=== PATIENT | female | born 1955 | race Caucasian/White ===

== ENCOUNTER 2016-11-13 20:07 | Emergency (ER) | payer OTHER ==
[~2016-11-13] VITALS: Ht 154.9 cm; Wt 65.8 kg
[~2016-11-13 20:07] MED LIST: ACET-6134 PO; AMLO5TAB PO; ESOM40EC PO; INSULIN; PRED1TAB2 PO; [UNRECOGNIZED DRUG - OTHER]
[2016-11-13 20:16] VITALS: BP 135/80
[2016-11-13] MEDS ORDERED: ALBUTEROL SULFATE/IPRATROPIU 3 ML SOL IH ONE (21:00)
[2016-11-13] MEDS ORDERED: NACL 0.9% 1,000 ML IV ONE (21:00)
[2016-11-13] MEDS ORDERED: ASPIRIN 81 MG TAB.CHEW PO ONE (21:00)
[2016-11-13 21:32] LABS: HEMATOCRIT 32.8 % (36-48); HEMOGLOBIN 10.1 g/dL (12.0-16.0); MEAN CORPUSCULAR HEMOGLOBIN 26 pg (27-31); MEAN CORPUSCULAR HGB CONC 31 g/dL (33-37); MEAN CORPUSCULAR VOLUME 82 fL (80-94); PLATELET COUNT (AUTO) 392 K/uL (140-450); RED BLOOD CELL COUNT(AUTO) 3.98 MIL/uL (4.20-5.40); RED CELL DISTRIBUTION WIDTH 15.3 % (11.6-13.7); WHITE BLOOD COUNT (AUTO) 15.3 K/uL (4.8-10.8)
[2016-11-13 21:40] LABS: ANION GAP 7.8 (8-16); CALCIUM 8.5 mg/dL (8.5-10.1); CARBON DIOXIDE 30.7 mmol/L (21-32); CREATININE 0.8 mg/dL (0.6-1.3); POTASSIUM 3.5 mmol/L (3.5-5.1)
[2016-11-13 21:44] LABS: PARTIAL THROMBOPLASTIN TIME 22.5 secs (22-35.6); PROTHROMBIN TIME 9.9 secs (10.8-13.4)
[2016-11-13 21:46] LABS: TOTAL BILIRUBIN 0.2 mg/dL (0.0-1.0); TOTAL PROTEIN, SERUM 6.3 g/dL (6.4-8.2)
[2016-11-13] MEDS ORDERED: CLINDAMYCIN 900 MG in DEXTROSE 5% 100 ML IV ONE (21:50)
[2016-11-13 21:51] LABS: LYMPHOCYTES % (MANUAL) 14 % (20-46); MONOCYTES % (MANUAL) 7 % (5-12); NEUTROPHILS % (MANUAL) 79 (43-65)
[2016-11-13 21:52] LABS: PLATELET ESTIMATE ADEQUATE
[2016-11-13] MEDS ORDERED: CLINDAMYCIN 900 MG/6 ML VIAL IV ONE (22:00)
[2016-11-13 23:06] VITALS: BP 135/80
== END 2016-11-13 23:06 | disposition left against medical advice (07) ==
LOC: MED 20:07
DX: J18.9 Pneumonia, unspecified organism (principal); J44.1 Chronic obstructive pulmonary disease with (acute) exacerbation; M79.672 Pain in left foot; M79.671 Pain in right foot; M79.89 Other specified soft tissue disorders; E11.9 Type 2 diabetes mellitus without complications; I10 Essential (primary) hypertension; Z79.4 Long term (current) use of insulin; Z79.899 Other long term (current) drug therapy; Z88.0 Allergy status to penicillin; Z88.1 Allergy status to other antibiotic agents; Z88.5 Allergy status to narcotic agent
CPT/HCPCS: 36415; 71010; 80053; 84484; 85025; 85610; 85730; 93005; 94640; 96361; 96365; 99285; J3490; J7030; J7620; Q0092

== ENCOUNTER 2017-04-27 17:22 | Emergency (ER) | payer OTHER ==
[~2017-04-27] VITALS: Ht 154.9 cm; Wt 67.1 kg
[2017-04-27 17:26] VITALS: BP 141/113
[2017-04-27] MEDS ORDERED: LOSA25TA1 PO (17:34)
[2017-04-27] MEDS ORDERED: LEVEMIR SUBQ (17:34)
[2017-04-27] MEDS ORDERED: GABA100C PO (17:34)
[2017-04-27] MEDS ORDERED: ATOR20TA PO (17:34)
--- NOTE | 2017-04-27 17:45 | NUR ---
PATIENT TO ED BED 4 AT THIS TIME.
--- NOTE | 2017-04-27 18:10 | NUR ---
DR. WARE AT BEDSIDE
[2017-04-27] MEDS ORDERED: IPRATROPIUM 0.02% 0.5 MG/2.5 ML NEBU INH ONE (18:15)
[2017-04-27] MEDS ORDERED: ALBUTEROL 0.083% 2.5 MG/3 ML NEBU INH ONE (18:15)
--- NOTE | 2017-04-27 18:21 | NUR ---
XRAY AT BEDSIDE
--- NOTE | 2017-04-27 18:22 | NUR ---
PATIENT PRESENTS TO ED WITH chest pain starting a few hours ago with SOB Hx: pulmonary fibrosis, DM, lupus, chronic migraine, HTN, stent placement . DENIES N/V/D; SKIN IS PINK/WARM/DRY; AAOX4 WITH EVEN AND STEADY GAIT; LUNGS CLEAR BL; HR EVEN AND REGULAR; PT DENIES ANY FEVER; PATIENT STATES PAIN OF 7/10 AT THIS TIME; PATIENT POSITIONED FOR COMFORT; HOB ELEVATED; BEDRAILS UP X2; BED DOWN, LAB AT BEDSIDE AT THIS TIME.
--- NOTE | 2017-04-27 18:28 | NUR ---
RT AT BEDSIDE FOR HHN
--- NOTE | 2017-04-27 19:00 | NUR ---
RECEIVED REPORT FROM TOREY LAN, TRANSFER OF CARE AT THIS TIME.
[2017-04-27 20:03] VITALS: BP 144/77
== END 2017-04-27 20:03 | disposition home or self-care (01) ==
LOC: MED 17:22
DX: S61.432A Puncture wound without foreign body of left hand, initial encounter (principal); J44.1 Chronic obstructive pulmonary disease with (acute) exacerbation; E11.9 Type 2 diabetes mellitus without complications; I10 Essential (primary) hypertension; Z95.1 Presence of aortocoronary bypass graft; Z88.0 Allergy status to penicillin; Z88.1 Allergy status to other antibiotic agents; Z88.5 Allergy status to narcotic agent; X58.XXXA Exposure to other specified factors, initial encounter; Y93.89 Activity, other specified; Y92.89 Other specified places as the place of occurrence of the external cause; Y99.8 Other external cause status
CPT/HCPCS: 36415; 71045; 82948; 84484; 93005; 94640; 94760; 99285; J7613; J7644; Q0092

== ENCOUNTER 2017-09-01 21:41 | Emergency (ER) | payer OTHER ==
[~2017-09-01] VITALS: Ht 157.5 cm; Wt 64.9 kg
[~2017-09-01 21:41] MED LIST changes: +ATOR20TA PO; +GABA100C PO; -INSULIN; +LEVEMIR SUBQ; +LOSA25TA1 PO; -[UNRECOGNIZED DRUG - OTHER]
[2017-09-01 21:43] VITALS: BP 162/90
[2017-09-01 21:50] VITALS: BP 162/90
--- NOTE | 2017-09-01 21:52 | NUR ---
PT TO ER BED 3
--- NOTE | 2017-09-01 21:55 | NUR ---
PATIENT PRESENTS TO ED WITH REDNESS TO LEFT EYE AND HEADACHE X3 DAYS. PT DENIES N/V/D; SKIN IS PINK/WARM/DRY; AAOX4 WITH EVEN AND STEADY GAIT; LUNGS CLEAR BL; HR EVEN AND REGULAR; PT DENIES ANY FEVER, CP, SOB AT THIS TIME; PATIENT STATES PAIN OF 9/10 AT THIS TIME; VSS; PATIENT POSITIONED FOR COMFORT; HOB ELEVATED; BEDRAILS UP X1; BED DOWN. ER MD MADE AWARE OF PT STATUS.
--- NOTE | 2017-09-01 22:00 | NUR ---
XRAY AT BEDSIDE
[2017-09-01] MEDS ORDERED: NACL 0.9% 500 ML IV ONE (22:05)
[2017-09-01] MEDS ORDERED: KETOROLAC 30 MG/ML VIAL IVP ONE (22:05)
--- NOTE | 2017-09-01 22:40 | NUR ---
Patient appears to be resting comfortably in bed. Vital Signs within normal limits. Respirations even and unlabored.
--- NOTE | 2017-09-02 00:10 | NUR ---
IV removed, catheter intact and site benign. Applied folded 4x4 gauze and tape to stop bleeding. PATIENT REFUSED TO HAVE DRIED BLOOD CLEANED FROM SURROUNDING AREA.
--- NOTE | 2017-09-02 00:14 | NUR ---
Patient discharged with v/s stable. Written and verbal after care instructions given and explained. Patient RIPPED DISCHARGE PAPERWORK IN HALF. PATIENT THREW BED MATTRESS AND LINENS ON THE FLOOR UPON DISCHARGE. All questions addressed prior to discharge. Advised to follow up with PMD.
== END 2017-09-02 00:14 | disposition home or self-care (01) ==
LOC: MED 21:41
DX: H11.32 Conjunctival hemorrhage, left eye (principal); R51 Headache; R03.0 Elevated blood-pressure reading, without diagnosis of hypertension; J84.10 Pulmonary fibrosis, unspecified; E11.9 Type 2 diabetes mellitus without complications; I10 Essential (primary) hypertension; Z79.899 Other long term (current) drug therapy; Z88.0 Allergy status to penicillin; Z88.1 Allergy status to other antibiotic agents; Z88.5 Allergy status to narcotic agent
CPT/HCPCS: 71045; 93005; 96361; 96374; 99284; J1885; J7030

== ENCOUNTER 2018-12-21 21:50 | Emergency (ER) | payer OTHER ==
[~2018-12-21] VITALS: Ht 154.9 cm; Wt 60.8 kg
[2018-12-21 21:55] VITALS: BP 121/90
[2018-12-21] MEDS ORDERED: SODIUM CHLORIDE FLUSH 10 ML SYR IVF STA (21:59)
[2018-12-21] MEDS ORDERED: NITROGLYCERIN 0.4 MG TAB SL STA (21:59)
[2018-12-21 22:38] LABS: BASOPHILS # (AUTO) 0.1 K/uL (0.00-0.22); BASOPHILS % (AUTO) 0.5 % (0.0-2.0); EOSINOPHILS # (AUTO) 0.1 K/uL (0-0.4); EOSINOPHILS % (AUTO) 0.5 % (0.0-4.0); HEMATOCRIT 34.4 % (36-48); HEMOGLOBIN 10.4 g/dL (12.0-16.0); LYMPHOCYTES # (AUTO) 1.8 K/uL (2.5-16.5); LYMPHOCYTES % (AUTO) 11.7 % (20.5-51.1); MEAN CORPUSCULAR HEMOGLOBIN 25 pg (27-31); MEAN CORPUSCULAR HGB CONC 30 g/dL (33-37); MEAN CORPUSCULAR VOLUME 81.5 fL (80-94); MONOCYTES % (AUTO) 6.2 % (1.7-9.3); NEUTROPHILS # (AUTO) 12.7 K/uL (1.8-7.7); PLATELET COUNT (AUTO) 321 K/uL (140-450); RED BLOOD CELL COUNT(AUTO) 4.22 MIL/uL (4.20-5.40); RED CELL DISTRIBUTION WIDTH 19.9 % (11.6-13.7); WHITE BLOOD COUNT (AUTO) 15.7 K/uL (4.8-10.8)
[2018-12-21 22:44] LABS: ANION GAP 11.6 (8-16); CREATININE 0.8 mg/dL (0.6-1.3); POTASSIUM 3.6 mmol/L (3.5-5.1)
[2018-12-21 22:49] LABS: ALBUMIN 3.1 g/dL (3.4-5.0); TOTAL BILIRUBIN 0.3 mg/dL (0.0-1.0)
[2018-12-21 22:52] LABS: NEUTROPHILS % (AUTO) 81.1 % (42.2-75.2)
--- NOTE | 2018-12-21 23:10 | NUR ---
PT WAS WHEEL CHAIRED TO BED #3
--- NOTE | 2018-12-21 23:41 | NUR ---
PT C/O CHEST PAIN X1 WEEK W/ DIZZINESS AND SOB. RR EVEN AND UNLABORED, ABLE TO TALK IN FULL SENTENCES. HEADACHE X3 DAYS. FLANK PAIN X3 DAYS, DENIES URINARY SX. LAYING IN BED CALM, WITH FRIEND AT BEDSIDE. MEDHX: PULMONARY FIBROSIS, DM, EMPHYSEMA, LUPUS
[2018-12-22] MEDS ORDERED: NACL 0.9% 1,000 ML IV ONE (00:10)
[2018-12-22] MEDS ORDERED: ALBUTEROL SULFATE/IPRATROPIU 3 ML SOL IH ONE (00:10)
[2018-12-22] MEDS ORDERED: fentaNYL 0.05 MG/ML VIAL IVP ONE (00:10)
[2018-12-22 00:28] VITALS: BP 121/90
--- NOTE | 2018-12-22 00:28 | NUR ---
PATIENT ELOPED FROM FACILITY. DISCHARGE INSTRUCTIONS NOT GIVEN TO PATIENT. DR. CRABTREE NOTIFIED.
== END 2018-12-22 00:28 | disposition left against medical advice (07) ==
LOC: MED 21:50
DX: R07.89 Other chest pain (principal); R06.02 Shortness of breath; M54.9 Dorsalgia, unspecified; I10 Essential (primary) hypertension; E11.9 Type 2 diabetes mellitus without complications; J84.10 Pulmonary fibrosis, unspecified; M32.9 Systemic lupus erythematosus, unspecified; Z88.0 Allergy status to penicillin; Z88.1 Allergy status to other antibiotic agents; Z88.5 Allergy status to narcotic agent; Z79.899 Other long term (current) drug therapy; Z79.1 Long term (current) use of non-steroidal anti-inflammatories (NSAID)
CPT/HCPCS: 36415; 71045; 80053; 84484; 85025; 93005; 99284; Q0092; J7620

== ENCOUNTER 2019-02-13 18:11 | Emergency (ER) | payer OTHER ==
[~2019-02-13] VITALS: Ht 149.9 cm; Wt 61.9 kg
[2019-02-13 18:17] VITALS: BP 158/98
--- NOTE | 2019-02-13 18:20 | NUR ---
PT AMBULATED TO BED 3.
--- NOTE | 2019-02-13 18:30 | NUR ---
63 Y/O F PRESENTS TO ER FOR RIGHT LEG LACERATION SINCE LAST NIGHT. PER PT SHE DOES NOT RECALL HOW SHE GOT THE CUT, SHE ONLY FELT HER PANTS WET, AND SHE NOTICED THE BLOOD. LACERATION IS 6CM, OPEN WOUND, NO BLEEDING NOTED. PAIN LEVEL 8/10, BURNING/NUMBNESS. PT TOOK TYLENOL AT 2PM WITH MILD RELIEF. LEFT FOOT ALSO HAS SWELLING +2 PTTING EDEMA. PT ALSO REPORTS SHORTNESS OF BREATHE. RESPIRATIONS ARE EVEN AND UNLABORED. O2 SATURATION 99% ON RA. HOB ELEVATED, BED IN LOWEST POSITION, BED RAIL UP X1. WAITING FOR ERMD TO EVALUATE PT. ALLERGIES: PENICILLIN, AZITHROMYCIN, CEPHALEXIN MED HX: DM, LUPUS, FIBROSIS, EMPHYSEMA, MIGRAINS, HTN, HEART MURMUR.
[2019-02-13] MEDS ORDERED: BACITRACIN OINT 500 UNITS/GM PKT TP ONE (19:00)
[2019-02-13] MEDS ORDERED: LIDOCAINE MPF 1% 10 MG/ML VIAL INJ ONE ×2 (19:10→19:45)
--- NOTE | 2019-02-13 19:36 | NUR ---
PATIENT IS QUIETLY SITTING IN BED. PA IS AT BEDSIDE. WILL CONTINUE TO MONITOR.
--- NOTE | 2019-02-13 19:40 | NUR ---
PT WOUND IRRIGATED WITH NORMAL SALINE AND BETADINE
--- NOTE | 2019-02-13 20:01 | NUR ---
PA AT BEDSIDE FOR PROCEDURE.
--- NOTE | 2019-02-13 20:28 | NUR ---
PT WOUND COVERED WITH NON ADHERENT DRESSING AND WRAPPED WITH GAUZE ROLL AFTER BACITRACIN APPLIED. +CSM
[2019-02-13 20:49] VITALS: BP 138/79
== END 2019-02-13 20:49 | disposition home or self-care (01) ==
LOC: MED 18:11
DX: S81.811A Laceration without foreign body, right lower leg, initial encounter (principal); E11.9 Type 2 diabetes mellitus without complications; I10 Essential (primary) hypertension; Z79.899 Other long term (current) drug therapy; Z88.0 Allergy status to penicillin; Z88.1 Allergy status to other antibiotic agents; Z88.5 Allergy status to narcotic agent; X58.XXXA Exposure to other specified factors, initial encounter; Y92.89 Other specified places as the place of occurrence of the external cause; Y93.01 Activity, walking, marching and hiking; Y99.8 Other external cause status
CPT/HCPCS: 12002; 82948; 90471; 90715; 99283; J2001

== ENCOUNTER 2019-02-15 18:21 | Emergency (ER) | payer OTHER ==
[~2019-02-15] VITALS: Ht 154.9 cm; Wt 60.8 kg
[2019-02-15 18:33] VITALS: BP 163/93
[2019-02-15] MEDS ORDERED: SULFAMETH/TRIMETH DS 800/160MG 1 TAB PO ONE (18:45)
[2019-02-15 19:17] VITALS: BP 172/88
== END 2019-02-15 19:17 | disposition home or self-care (01) ==
LOC: MED 18:21
DX: S81.811D Laceration without foreign body, right lower leg, subsequent encounter (principal); L08.9 Local infection of the skin and subcutaneous tissue, unspecified; E11.9 Type 2 diabetes mellitus without complications; I10 Essential (primary) hypertension; Z88.0 Allergy status to penicillin; Z88.1 Allergy status to other antibiotic agents; Z88.5 Allergy status to narcotic agent; Z79.899 Other long term (current) drug therapy; X58.XXXD Exposure to other specified factors, subsequent encounter
CPT/HCPCS: 99283

== ENCOUNTER 2019-03-04 16:49 | Emergency (ER) | payer OTHER ==
[~2019-03-04] VITALS: Ht 154.9 cm; Wt 60.8 kg
[2019-03-04 16:57] VITALS: BP 180/85
--- NOTE | 2019-03-04 17:04 | NUR ---
Patient ambulated to bed 5 with family. RN evaluating patient at bedside.
--- NOTE | 2019-03-04 17:12 | NUR ---
MARIE Barone evaluating patient at bedside.
--- NOTE | 2019-03-04 17:15 | NUR ---
PT C/O SEVERE PAIN WHILE MARIE MARIE REMOVING SUTURES ON RLE. ORDER PENDING FOR EMLA TOPICAL, WILL CARRY OUT.
[2019-03-04] MEDS ORDERED: LIDOCAINE/PRILOCAINE 2.5% 5 GM TUBE TP ONE (17:20)
--- NOTE | 2019-03-04 17:46 | NUR ---
SUTURES REMOVED AFTER APPROX 15MINS AFTER EMLA TOPICAL, PT C/O PAIN BUT ABLE TO TOLERATE. DR WARE AT BEDSIDE.
--- NOTE | 2019-03-04 18:05 | NUR ---
Patient discharged with v/s stable. Written and verbal after care instructions given and explained. Patient alert, oriented and verbalized understanding of instructions. Ambulatory with steady gait. All questions addressed prior to discharge. ID band removed. Patient advised to follow up with PMD. Rx of CLINDAMYCIN, MOTRIN given. Patient educated on indication of medication including possible reaction and side effects. Opportunity to ask questions provided and answered.
[2019-03-04 18:06] VITALS: BP 180/85
== END 2019-03-04 18:05 | disposition home or self-care (01) ==
LOC: MED 16:49
DX: L03.115 Cellulitis of right lower limb (principal); S81.811D Laceration without foreign body, right lower leg, subsequent encounter; E11.9 Type 2 diabetes mellitus without complications; I10 Essential (primary) hypertension; Z79.899 Other long term (current) drug therapy; Z48.02 Encounter for removal of sutures; Z79.4 Long term (current) use of insulin; Z88.0 Allergy status to penicillin; Z88.1 Allergy status to other antibiotic agents; Z88.5 Allergy status to narcotic agent; X58.XXXD Exposure to other specified factors, subsequent encounter

== ENCOUNTER 2019-04-12 14:49 | Emergency (ER) | payer OTHER ==
[~2019-04-12] VITALS: Ht 154.9 cm; Wt 60.8 kg
[2019-04-12 15:05] VITALS: BP 171/81
--- NOTE | 2019-04-12 15:13 | NUR ---
PT AMB TO BED 1 WITH STEADY GAIT
--- NOTE | 2019-04-12 15:23 | NUR ---
PT C/O RT LOWER LEG PAIN W/ NON HEALING WOUND, SOB, CP, BLURRY VISION, DIZZINESS, LOSS OF APPETITE, PRODUCTIVE COUGH FOR ONE WEEK. SEEN HERE LAST FEBRUARY FOR INJURY ON LT LEG. PATIENT STATES BURNING/THROBBING PAIN OF 8/10 AT THIS TIME; VSS; PATIENT POSITIONED FOR COMFORT; HOB ELEVATED; BEDRAILS UP X1; BED DOWN. ER MD MADE AWARE OF PT STATUS. PT IS ON MONITROR FOR VITAL SIGNS MONITORING.
[2019-04-12] MEDS: ALBUTEROL 0.083% 2.5 MG/3 ML NEBU INH ONE (15:41)
[2019-04-12] MEDS: IPRATROPIUM 0.02% 0.5 MG/2.5 ML NEBU INH ONE (15:41)
--- NOTE | 2019-04-12 15:44 | NUR ---
RT AT BEDSIDE FOR RESPIRATORY INTERVENTION
--- NOTE | 2019-04-12 15:47 | NUR ---
XRAY AT BEDSIDE
[2019-04-12] MEDS: predniSONE 20 MG TAB PO ONE (16:04)
[2019-04-12 16:07] LABS: BASOPHILS % (AUTO) 0.3 % (0.0-2.0); EOSINOPHILS # (AUTO) 0.1 K/uL (0-0.4); EOSINOPHILS % (AUTO) 0.7 % (0.0-4.0); HEMATOCRIT 32.3 % (36-48); HEMOGLOBIN 9.8 g/dL (12.0-16.0); LYMPHOCYTES # (AUTO) 1.4 K/uL (2.5-16.5); LYMPHOCYTES % (AUTO) 13.4 % (20.5-51.1); MEAN CORPUSCULAR HEMOGLOBIN 24 pg (27-31); MEAN CORPUSCULAR HGB CONC 31 g/dL (33-37); MEAN CORPUSCULAR VOLUME 79.4 fL (80-94); MONOCYTES # (AUTO) 0.7 K/uL (0.8-1.0); MONOCYTES % (AUTO) 7.1 % (1.7-9.3); NEUTROPHILS # (AUTO) 8.2 K/uL (1.8-7.7); NEUTROPHILS % (AUTO) 78.5 % (42.2-75.2); PLATELET COUNT (AUTO) 332 K/uL (140-450); RED BLOOD CELL COUNT(AUTO) 4.07 MIL/uL (4.20-5.40); RED CELL DISTRIBUTION WIDTH 17.6 % (11.6-13.7); WHITE BLOOD COUNT (AUTO) 10.5 K/uL (4.8-10.8)
--- NOTE | 2019-04-12 16:32 | NUR ---
PT IS RESTING IN THE BED WITH VSS. PT IS ON MONITOR FOR CHECKING VITAL SIGNS.
[2019-04-12 16:54] LABS: ANION GAP 10.8 (8-16); CARBON DIOXIDE 28.7 mmol/L (21-32); POTASSIUM 3.5 mmol/L (3.5-5.1); TOTAL BILIRUBIN 0.3 mg/dL (0.0-1.0)
--- NOTE | 2019-04-12 17:35 | NUR ---
pt is resting in the bed with eyes opened. family member is at bedside. pt is on monitor with vss.
--- NOTE | 2019-04-12 18:34 | NUR ---
pt is resting in the bed with vss. pt is on the monitor to monitoring vital signs.
[2019-04-12] MEDS ORDERED: NACL 0.9% 1,000 ML IV SCH (18:41)
[2019-04-12] MEDS ORDERED: ONDANSETRON 4 MG/2 ML VIAL IVP PRN (18:45)
[2019-04-12] MEDS ORDERED: ACETAMINOPHEN 325 MG TAB PO PRN (18:45)
[2019-04-12 19:19] VITALS: BP 141/68
--- NOTE | 2019-04-12 19:19 | NUR ---
Patient discharged with v/s stable. Written and verbal after care instructions given and explained. Patient alert, oriented and verbalized understanding of instructions. Ambulatory with steady gait. All questions addressed prior to discharge. ID band removed. Patient advised to follow up with PMD. Rx of Keystone, Albuterol Sulfate solution, Albuterol Inhalation Aerosol, and Prednisone given. Patient educated on indication of medication including possible reaction and side effects. Opportunity to ask questions provided and answered.
[2019-04-12 19:59] LABS: PROTHROMBIN TIME 9.5 secs (10.8-13.4)
[2019-04-12 20:58] LABS: MAGNESIUM 2.2 mg/dL (1.8-2.4); PHOSPHORUS 3.4 mg/dL (2.5-4.9); THYROID STIMULATING HORMONE 1.28 uIU/mL (0.34-3.74)
[2019-04-12] MEDS ORDERED: DOCUSATE SODIUM 100 MG GELCAP PO SCH (21:00)
[2019-04-13] MEDS ORDERED: FAMOTIDINE 20 MG TAB PO SCH (09:00)
== END 2019-04-12 19:19 | disposition home or self-care (01) ==
LOC: MED 14:49
DX: J44.9 Chronic obstructive pulmonary disease, unspecified (principal); J84.10 Pulmonary fibrosis, unspecified; S81.801A Unspecified open wound, right lower leg, initial encounter; E11.9 Type 2 diabetes mellitus without complications; I10 Essential (primary) hypertension; Z95.5 Presence of coronary angioplasty implant and graft; Z79.899 Other long term (current) drug therapy; Z79.4 Long term (current) use of insulin; Z88.0 Allergy status to penicillin; Z88.1 Allergy status to other antibiotic agents; Z88.5 Allergy status to narcotic agent; X58.XXXA Exposure to other specified factors, initial encounter; Y92.89 Other specified places as the place of occurrence of the external cause; Y93.89 Activity, other specified; Y99.8 Other external cause status
CPT/HCPCS: 36415; 71045; 73590; 80053; 82948; 83036; 83605; 83735; 83880; 84100; 84443; 84484; 85025; 85610; 85730; 93005; 94640; 99284; J7512; J7613; J7644

== ENCOUNTER 2019-05-03 08:58 | Inpatient (IN) | payer OTHER ==
[2019-05-03] VITALS (50 sets, daily range): BP systolic 84–196; BP diastolic 51–107
[~2019-05-03] VITALS: Ht 157.5 cm; Wt 68.0 kg
--- NOTE | 2019-05-03 08:55 | NUR ---
PT CAME IN SOB ASSESSING PATIENT
--- NOTE | 2019-05-03 09:00 | NUR ---
MD CRABTREE ORDERED BIPAP. PT IS FIGHTING AND VERY ANXIOUS. PT IS LETTING US PUT BIPAP MASK ON. MD AWARE AND AT BEDSIDE.
--- NOTE | 2019-05-03 09:02 | NUR ---
PT 58% ON RA. PLACED ON 10 L FACE MASK AND SATURATION INCREASED TO 88%.
--- NOTE | 2019-05-03 09:05 | NUR ---
Dr. Haas ordered for pt to be placed on BiPAP, RT notified
--- NOTE | 2019-05-03 09:10 | NUR ---
RT attempted to place pt on BiPAP but pt refusing. Dr Haas notified and will intubate pt.
--- NOTE | 2019-05-03 09:12 | NUR ---
63/F BIBA with complaint of SOB x today. EMS attempted to apply CPAP in route but pt refused. Per EMS pt saturating 88% on 4L NC. Pt is alert and answering questions appropriately but combatative. Speaks 2-3 words at a time. Noted with increased WOB, use of accessory muscles. Rhonchi throughout Hx- pulm fibrosis
--- NOTE | 2019-05-03 09:14 | NUR ---
Dr. Haas discussed indication for as well as risks and benefits of intubation with patient and patient's daughter at bedside.
--- NOTE | 2019-05-03 09:20 | NUR ---
2 mg Rocuronium administered IVP via RT HAND #[address] Haas's orders
--- NOTE | 2019-05-03 09:21 | NUR ---
20 mg Etomidate administered IVP via RT HAND #[address] Haas's orders
[2019-05-03] MEDS ORDERED: PROPOFOL 1000 MG/100 ML PREMIX 100 ML IV ONE ×2 (09:24→12:46)
--- NOTE | 2019-05-03 09:25 | NUR ---
PT INTUBATED WITH 7.5 ETT AT 23 CM AT LIP. ETT IS IN PLACE AND SECURED WITH ANCHOR FAST. PLACED PT ON VENTILATOR. VENT SETTINGS PER MD CRABTREE AC 14, 500+,+5, 50%. SPUTUM SAMPLE COLLECTED AND SENT TO LAB. PT'S SECRETIONS IS BLOODY. MD AND RN AWARE. VENT IS CONNECTED TO RED OUTLET.ALARMS AUDIBLE. WILL CONTINUE TO MONITOR.
--- NOTE | 2019-05-03 09:25 | NUR ---
Intubation using ET 7.5 taped @ [address] Haas. Pt placed on ventilator. Post intubation vitals: 88%-93%, HR 128, RR 33, BP 196/107. Addendum: 05/03/19 at 0936 by ALIDA RT at bedside
--- NOTE | 2019-05-03 09:26 | NUR ---
VENT SETTINGS: FIO2 50%, VT 500, RATE 14, FLOW 35, PEEP 5, PMAX 50
[2019-05-03] MEDS ORDERED: NACL 0.9% 500 ML IV SCH (09:28)
[2019-05-03] MEDS ORDERED: ROCURONIUM 50 MG/5 ML VIAL IV ONE (09:30)
[2019-05-03] MEDS ORDERED: ETOMIDATE 20 MG/10 ML VIAL IVP ONE (09:30)
[2019-05-03] MEDS: PROPOFOL 1000 MG/100 ML PREMIX 100 ML IV ONE ×2 (09:30→09:59)
--- NOTE | 2019-05-03 09:30 | NUR ---
VERBAL ORDERS RECEVIED FOR PROPOFOL GTT STARTING AT 10MCG/KG/MIN TITRATE PER PROTOCOL TO RASS OF -2.
--- NOTE | 2019-05-03 09:30 | NUR ---
PROPOFOL DRIP INITIATED USING BOD WEIGHT OF 68 KG
--- NOTE | 2019-05-03 09:36 | NUR ---
XRAY at bedside
--- NOTE | 2019-05-03 09:45 | NUR ---
G DRAWN AND RESULTS GIVEN TO MD CRABTREE. NO NEW ORDERS.
--- NOTE | 2019-05-03 09:47 | NUR ---
RT AT BEDSIDE FOR ABG
--- NOTE | 2019-05-03 09:55 | NUR ---
MD CRABTREE ASKED TO PULL ETT BACK 3 CM. ETT NOW AT 20 CM AT LIP. AWARE AND AGREES. WILL CONTINUE TO MONITOR.
[2019-05-03 09:57] LABS: BASOPHILS # (AUTO) 0.1 K/uL (0.00-0.22); BASOPHILS % (AUTO) 0.8 % (0.0-2.0); EOSINOPHILS # (AUTO) 0.1 K/uL (0-0.4); EOSINOPHILS % (AUTO) 0.6 % (0.0-4.0); HEMATOCRIT 35.9 % (36-48); HEMOGLOBIN 10.8 g/dL (12.0-16.0); LYMPHOCYTES # (AUTO) 2.5 K/uL (2.5-16.5); LYMPHOCYTES % (AUTO) 13.6 % (20.5-51.1); MEAN CORPUSCULAR HEMOGLOBIN 24 pg (27-31); MEAN CORPUSCULAR HGB CONC 30 g/dL (33-37); MEAN CORPUSCULAR VOLUME 78.1 fL (80-94); MONOCYTES % (AUTO) 5.5 % (1.7-9.3); NEUTROPHILS # (AUTO) 14.7 K/uL (1.8-7.7); NEUTROPHILS % (AUTO) 79.5 % (42.2-75.2); PLATELET COUNT (AUTO) 375 K/uL (140-450); RED CELL DISTRIBUTION WIDTH 18.2 % (11.6-13.7); WHITE BLOOD COUNT (AUTO) 18.4 K/uL (4.8-10.8)
[2019-05-03 10:16] LABS: PROTHROMBIN TIME 9.2 secs (10.8-13.4)
[2019-05-03 10:17] LABS: ALBUMIN 3.2 g/dL (3.4-5.0); ANION GAP 13.7 (8-16); CARBON DIOXIDE 28.3 mmol/L (21-32); CREATININE 0.9 mg/dL (0.6-1.3); TOTAL BILIRUBIN 0.5 mg/dL (0.0-1.0)
--- NOTE | 2019-05-03 10:30 | NUR ---
# 16 FR Maciel catheter utilizing sterile technique. Immediate return of 50 ml yellow urine noted. Bedside drainage bag placed below level of bladder. Urine sample collected and sent to lab. Pt tolerated procedure well.
[2019-05-03] MEDS ORDERED: LORazepam 2 MG/ML VIAL ONE (10:38)
[2019-05-03] MEDS ORDERED: CLINDAMYCIN 900 MG in DEXTROSE 5% 100 ML IV ONE (10:40)
[2019-05-03] MEDS ORDERED: LEVOFLOXACIN 500 MG/D5W PREMIX 100 ML IV ONE (10:40)
[2019-05-03] MEDS ORDERED: LORazepam 2 MG/ML VIAL IVP ONE (10:40)
--- NOTE | 2019-05-03 10:43 | NUR ---
CRITICAL LAB VALUE: LACTIC 4.[address] CRABTREE
[2019-05-03] MEDS ORDERED: ENOXAPARIN 80 MG/0.8 ML SYR SUBQ ONE (11:00)
[2019-05-03] MEDS ORDERED: NACL 0.9% 1,500 ML IV ONE (11:00)
[2019-05-03 11:07] LABS: APPEARANCE,URINE CLEAR (CLEAR); BILIRUBIN,URINE NEGATIVE (NEGATIVE); BLOOD, URINE 1+ (NEGATIVE); COLOR,URINE YELLOW (YELLOW); LEUKOCYTE ESTERASE ,URINE NEGATIVE (NEGATIVE); NITRITE, URINE NEGATIVE (NEGATIVE); UGLUCOSE 2+ (NEGATIVE)
--- NOTE | 2019-05-03 11:14 | NUR ---
OGTUBE PLACED BY LUIS LAN
[2019-05-03] MEDS ORDERED: ENOXAPARIN 40 MG/0.4 ML SYR SUBQ ONE (11:29)
[2019-05-03] MEDS ORDERED: CRUSHER, PILL MC ONE (11:30)
[2019-05-03 11:31] LABS: HYALINE CASTS, URINE 0-10 /LPF (None Seen); WBC,URINE 0-5 /HPF (0-5)
[2019-05-03] MEDS: ASPIRIN 81 MG TAB.CHEW NG ONE ×2 (11:32→12:07)
[2019-05-03] MEDS ORDERED: NACL 0.9% 1,000 ML IV SCH (11:34)
[2019-05-03] MEDS ORDERED: ONDANSETRON 4 MG/2 ML VIAL IM/IVP PRN (11:35)
--- NOTE | 2019-05-03 11:44 | NUR ---
ASKED PHARMACY TO BRING ENOXAPARIN
--- NOTE | 2019-05-03 11:49 | NUR ---
DR COLON TO PLACE ORDER FOR XRAY FOR OG TUBE PLACEMENT
--- NOTE | 2019-05-03 11:59 | NUR ---
XRAY AT BEDSIDE
[2019-05-03] MEDS ORDERED: MORPHINE SULFATE 50 MG in NACL 0.9% 45 ML IV PRN (12:05)
--- NOTE | 2019-05-03 12:22 | NUR ---
RT NOTIFIED TO ASSIST WITH TRANSFER TO ICU BED 2
--- NOTE | 2019-05-03 12:23 | NUR ---
SEE IV SPREADSHEET FOR VITAL SIGNS
[2019-05-03 12:31] LABS: CHOL/HDL RATIO 3.2 (1-4.5); FREE T4 (FREE THYROXINE) 0.89 ng/dL (0.76-1.46); MAGNESIUM 1.9 mg/dL (1.8-2.4); PHOSPHORUS 2.3 mg/dL (2.5-4.9); THYROID STIMULATING HORMONE 4.17 uIU/mL (0.34-3.74)
--- NOTE | 2019-05-03 12:55 | NUR ---
Patient will be admitted to care of DR LYNN. Admited to ICU. Will go to BED 2. Belongings list completed. Report to RHYS LAN.
--- NOTE | 2019-05-03 12:55 | NUR ---
INFORMED RIKY JOINER THAT ORDERED CLEOCIN WAS NOT ADMINISTERED DUE TO LEVAQUIN INFUSING.
--- NOTE | 2019-05-03 12:58 | NUR ---
RECEIVED PT FROM CRUTCHING CONTRACTORRIKY FLORES. PT IN BED NOT OPENING EYES, BUT RESTLESS, TURNING HER HEAD LEFT AND RIGHT. PERRL, 3MM, BRISK. DOES NOT FOLLOW COMMANDS. SEDATED WITH PROPOFOL AT 50MCG/KG/MIN. DRY WEIGHT 68KG. IV CATH TO RIGHT WRIST 20G AND LEFT WRIST 20G, BOTH DRESSING INTACT AND ASYMPTOMATIC AT IV SITES. PT ETT TO VENT WITH SETTING, FIO2 50%, VT500, RR14, PEEP5. FLACC 2. T[place]A, LUNG SOUNDS CLEAR. SUCTIONED FROM ETT, PINK TINGED SECRETIONS. TEMPORAL TEMP 97.2F. ABDOMEN SOFT W/ ACTIVE BOWEL SOUNDS. OGT AUSCULTATED, POSITIVE PLACEMENT, ASPIRATED, 0ML RESIDUAL. URIOSTEGUI CATH IN PLACE, DRAINING CLEAR YELLOW URINE VIA GRAVITY. SKIN IS WARM AND DRY TO TOUCH. NO EDEMA NOTED. OPEN WOUND TO RIGHT LEG, ACCORDING TO PT'S DAUGHTER SOMETHING FELL AND HIT THE LEG, PT HAD SUTURES IN ER IN THE PAST AND BUT THEN WOUND WAS INFECTED. DRESSING CLEAN AND INTACT. HOB ELEVATED TO 30 DEGREES, SAFETY PRECAUTION IN PLACE, WILL CONTINUE TO MONITOR.
[2019-05-03] MEDS: PROPOFOL 1000 MG/100 ML PREMIX 100 ML IV PRN ×2 (13:00→18:33)
--- NOTE | 2019-05-03 13:00 | NUR ---
PT GOT 1L NS BOLUS IN ER. 2ND 1L NS BOLUS IS STILL INFUSING. MRSA NARES AND FLU NARES DONE.
--- NOTE | 2019-05-03 13:00 | NUR ---
PT TRANSFERRED TO ICU WITH NO INCIDENT. TUBE IS IN PLACE AND SECURED. NO SOB OR DISTRESS NOTED.
--- NOTE | 2019-05-03 13:10 | NUR ---
SPOKE WITH DR GILLIS OVER THE PHONE, MADE HIM AWARE THAT PT IS ON FIO2 50%, O2 SAT 88-89%. PT HAS HX OF PULMONARY FIBROSIS. DR GILLIS SAID LET RT TO TITRATE UP FIO2 TO KEEP O2 SAT ABOVE 90%.
--- NOTE | 2019-05-03 13:15 | NUR ---
CALLED RT JOSH ZEPEDA TO TITRATE TO 60% FIO2. PT O2 SAT 91% AT FIO2 60%.
[2019-05-03] MEDS ORDERED: SODIUM PHOS / POTASSIUM PHOS 1 PKT PDR NG SCH (14:00)
--- NOTE | 2019-05-03 14:05 | NUR ---
WOUND CARE EVALUATION NOTE: REASON FOR EVALUATION: RIGHT LOWER LEG WOUND PT. WITH MULTIPLE ECCHYMOSIS TO BILATERAL ARMS AND LEGS, RLE WOUND ASSESSMENT DONE WITH PRIMARY RN, WOUND CULTURE OBTAINED WOUND BED 5X3CM 100% BROWN AND YELLOW COLOR, MOIST WOUND WITH MILD ODOR, HORACIO WOUND MILD ERYTHEMA, NO SWELLING, HORACIO WOUND SKIN TEMP. IS NORMAL.PER, DAUGHTER, RLE WOUND IS A TRAUMA WOUND "GOT HIT BY SOMETHING " AND HAS BEEN THERE FOR A WHILE. DAUGHTER HEDY AND DR. HUGHES AT BED SIDE POC DISCUSSED. DAUGHTER VERBALIZES UNDERSTANDING. RECOMMENDATIONS: -ARTERIAL ULTRA SOUND TO RLE -SURGEON CONSULT FOR DEBRIDEMENT -CLEANSE RIGHT LOWER LEG WOUND WITH NS. PAT DRY, APPLY HYDRAGUARD TO WOUND BED AND COVER WITH DRY DRESSING QD AND PRN IF SOILING. -TURN AND REPOSITION PATIENT Q 2H -ASSESS AND MONITOR SKIN CONDITION DURING POSITION CHANGE -OFFLOAD BILATERAL HEELS BY PLACING PILLOWS UNDER CALVES AT ALL TIMES, UNLESS OTHERWISE CONTRAINDICATED -PRESSURE REDISTRIBUTION BY PLACING PILLOWS AND OFFLOADING SACRALCOCCYX -KEEP SKIN CLEAN AND DRY AT ALL TIMES. PLEASE CONTACT WOUND CARE NURSE FOR ANY QUESTIONS Addendum: 05/03/19 at 1428 by John Andrew RN (Grace) CORRECTION -CLEANSE RIGHT LOWER LEG WOUND WITH NS. PAT DRY, APPLY HYDROGEL TO WOUND BED AND COVER WITH DRY DRESSING QD AND PRN IF SOILING. Addendum: 05/13/19 at 1233 by John Andrew RN (Grace) CORRECTION: APPLY HYDROGEL TO WOUND BED ORDERED. NOT HYDRAGUARD
--- NOTE | 2019-05-03 14:10 | NUR ---
DR HUGHES SAID HE ALREADY DISCUSSED PICC LINE INSERT WITH PT'S DAUGHTER. DAUGHTER SIGNED CONSENT. NO QUESTIONS AT THIS TIME.
[2019-05-03] MEDS ORDERED: MIDAZOLAM MDV 100 MG in NACL 0.9% 80 ML IV PRN (14:30)
[2019-05-03] MEDS: FUROSEMIDE 20 MG/2 ML VIAL IVP SCH (14:31)
[2019-05-03] MEDS ORDERED: CLINDAMYCIN 600 MG in DEXTROSE 5% 50 ML IV SCH (14:31)
[2019-05-03] MEDS: methylPREDNISolone SS 125 MG/2 ML VIAL IVP SCH ×2 (14:32→20:32)
[2019-05-03 15:16] LABS: BARBITURATE, URINE NEG. ng/ml (NEG <=200); BENZODIAZEPINE, URINE NEG. ng/mL (NEG <=200); CANNABINOID, URINE NEG. ng/mL (NEG <=50); COCAINE, URINE NEG. ng/mL (NEG <=300); OPIATE, URINE NEG. ng/mL (NEG <=2000); PHENCYCLIDINE SCREEN,URINE NEG. ng/mL (NEG <=25)
--- NOTE | 2019-05-03 15:40 | NUR ---
TRYING TO TAKE PT TO CT SCAN. PT IS ON AMBU BAG WITH 15L O2, RT DUANE IS BAGGING THE PT. STILL DESAT TO 70% AFTER DISCONNECTED FROM THE VENT. NOT SAFE TO BE TRANSFERRED TO CT ROOM. MADE DR HUGHES AWARE OF THE ABOVE. DR HUGHES SAID IT'S OK, DO CT WHEN PT IS MORE STABLE.
[2019-05-03] MEDS: BLOOD GLUCOSE MONITORING 1 DEV DEV FS SCH ×2 (16:30→20:45)
--- NOTE | 2019-05-03 16:40 | NUR ---
DR LYNN CAME AND SEEN PT.
--- NOTE | 2019-05-03 17:22 | NUR ---
CONTINUED TO MONITOR PT ON VENT WITH SETTINGS CHARTED BREATH SOUNDS PRESENT BILAT SXN PT WITH REDDISH SECS AMBU BAG AT BEDSIDE VENT PLUGGED INTO RED OUTLET
--- NOTE | 2019-05-03 18:00 | NUR ---
WOUND CLEANED WITH NS, PATTED DRY, APPLIED HYDROGEL AND ISLAND DRESSING. Addendum: 05/03/19 at 2013 by Robbin Love RN RIGHT LEG WOUND
[2019-05-03] MEDS: SKINTEGRITY HYDROGEL TP SCH (18:20)
--- NOTE | 2019-05-03 18:50 | NUR ---
PICC LINE MARILUZ CAME AND STARTING THE PICC LINE INSERTION PROCEDURE.
--- NOTE | 2019-05-03 19:10 | NUR ---
FIO2 DECREASED TO 50% BY RT LESLY.02SAT 100% AT THIS TIME.NO SOB NOTED
--- NOTE | 2019-05-03 19:30 | NUR ---
ASSUMED CARE OF PT.INITIAL ASSESSMENT COMPLETED. PT SEDATED.DRY WEIGHT 68KG. ON PROPOFOL DRIP AT 20MCG/KG/MIN (8.16ML/HR).SR ON MONITOR.ORALLY INTUBATED.FIO2 70% TV 500 AC14 PEEP7. WITH OGT ALREADY IN PLACE.PLACEMENT VERIFIED.CLAMPED.PT MAINTAINED ON NPO EXCEPT MEDS.W/ PERIPHERAL IV TO RT WRIST G20 INTACT INFUSING ORDERED IVF AND PROPOFOL DRIP AND LT WRIST G20 INTACT.SALINE LOCK.W/URIOSTEGUI CATHETER TO BSD DRAINING CLEAR YELLOW URINE.DRESSING TO RT LOWER LEG TRAUMA WOUND INTACT.FLACC 0
--- NOTE | 2019-05-03 20:00 | NUR ---
ORAL CARE USING VAP KIT RENDERED.PT ON PEPCID FOR GI PROPHYLAXIS AND HEPARIN SUBQ FOR DVT PROPHYLAXIS.REPOSITIONED
[2019-05-03] MEDS: ATORVASTATIN 80 MG TAB PO SCH (20:32)
[2019-05-03] MEDS: CLINDAMYCIN 600 MG in DEXTROSE 5% 50 ML IV SCH (20:32)
--- NOTE | 2019-05-03 20:47 | NUR ---
phone call to dr gu; pts blood sugar 189; pt npo and iv ns at 40ml; dr gu said to hold lantus and sliding scale at this time.
[2019-05-03] MEDS: INSULIN LANTUS 100 UNITS/ML 10 ML VIAL SUBQ SCH (20:53)
--- NOTE | 2019-05-03 20:57 | NUR ---
WITH NEW ORDER OK TO USE PICC LINE TO DAISY PER DR HO.
[2019-05-03] MEDS ORDERED: ATORVASTATIN 20 MG TAB PO SCH (21:00)
[2019-05-03] MEDS: ALBUTEROL SULFATE/IPRATROPIU 3 ML SOL IH SCH (23:20)
--- NOTE | 2019-05-03 23:20 | NUR ---
RT AT BEDSIDE; 02SAT 100%. FIO2 ON VENT SETTING DECREASED TO 40%
[2019-05-03] MEDS: BUDESONIDE 0.5 MG/2 ML NEBU INH SCH (23:21)
--- NOTE | 2019-05-03 23:26 | NUR ---
DR HUSTON, INFECTIOUS DS MD AT BEDSIDE; UPDATED ON PTS PRESENT CONDITION.QUESTIONS ANSWERED.SHOWED MD THE TRAUMA WOUND TO RT LOWER LEG.NO NEW ORDERS
[2019-05-04] VITALS (102 sets, daily range): BP systolic 80–145; BP diastolic 40–82
--- NOTE | 2019-05-04 | NUR ---
ORAL CARE USING VAP KIT DONE.SECRETIONS SUCTIONED NEEDED. NO S/SX OF PAIN NOTED.PT STILL SEDATED ON PROPOFOL DRIP.REPOSITIONED
--- NOTE | 2019-05-04 01:35 | NUR ---
FIO2 DECREASED TO 30% BY RT.02SAT 100%.NO SOB NOTED.SECRETIONS SUCTIONED.
--- NOTE | 2019-05-04 03:00 | NUR ---
PTS CONDITION REMAINS UNCHANGED.STILL ORALLY INTUBATED.PICC LINE TO DAISY INTACT. PROPOFOL DRIP AT 15MCG/KG/MIN INFUSING.URIOSTEGUI CATHETER INTACT.FLACC 0
[2019-05-04] MEDS: methylPREDNISolone SS 125 MG/2 ML VIAL IVP SCH ×3 (04:28→21:08)
[2019-05-04] MEDS: CLINDAMYCIN 600 MG in DEXTROSE 5% 50 ML IV SCH ×3 (04:28→21:09)
[2019-05-04 04:37] LABS: BASOPHILS % (AUTO) 0.1 % (0.0-2.0); HEMATOCRIT 26.9 % (36-48); HEMOGLOBIN 8.2 g/dL (12.0-16.0); LYMPHOCYTES # (AUTO) 0.3 K/uL (2.5-16.5); LYMPHOCYTES % (AUTO) 2.4 % (20.5-51.1); MEAN CORPUSCULAR HEMOGLOBIN 24 pg (27-31); MEAN CORPUSCULAR HGB CONC 31 g/dL (33-37); MEAN CORPUSCULAR VOLUME 77.7 fL (80-94); MONOCYTES # (AUTO) 0.1 K/uL (0.8-1.0); MONOCYTES % (AUTO) 0.8 % (1.7-9.3); NEUTROPHILS # (AUTO) 12.7 K/uL (1.8-7.7); PLATELET COUNT (AUTO) 242 K/uL (140-450); RED BLOOD CELL COUNT(AUTO) 3.47 MIL/uL (4.20-5.40); WHITE BLOOD COUNT (AUTO) 13.1 K/uL (4.8-10.8)
--- NOTE | 2019-05-04 05:00 | NUR ---
MORNING CARE DONE.CHG BATH GIVEN.ORAL CARE ALSO RENDERED.PROPOFOL RASS -2. FLACC 0
[2019-05-04 05:14] LABS: ANION GAP 9.7 (8-16); CARBON DIOXIDE 27.9 mmol/L (21-32); CREATININE 0.6 mg/dL (0.6-1.3); POTASSIUM 3.6 mmol/L (3.5-5.1)
[2019-05-04 05:15] LABS: NEUTROPHILS % (AUTO) 96.7 % (42.2-75.2)
[2019-05-04 05:20] LABS: MAGNESIUM 1.7 mg/dL (1.8-2.4); PHOSPHORUS 3.9 mg/dL (2.5-4.9)
[2019-05-04] MEDS: ALBUTEROL SULFATE/IPRATROPIU 3 ML SOL IH SCH ×3 (06:34→19:54)
--- NOTE | 2019-05-04 06:34 | NUR ---
rec'd pt on carescape vent settings ac 14 vt 500 peep 7 fio2 30% alarms on and audible and ambu bag at side of vent and vent is plugged into red outlet, i\l txs given with duoneb 3ml and pulmicort 0.5mg with no adverse reaction post tx b\s are clear bilaterally, sxn pt small amt of clear secretions, pt is orally intubated with 7.5 et tube at 21 cm and pt is resting with no signs of distress
[2019-05-04] MEDS: BUDESONIDE 0.5 MG/2 ML NEBU INH SCH ×2 (06:43→19:54)
[2019-05-04] MEDS ORDERED: MAG SULF 2000 MG/WATER PREMIX 100 ML IV ONE (07:00)
[2019-05-04] MEDS: BLOOD GLUCOSE MONITORING 1 DEV DEV FS SCH ×4 (07:30→21:00)
--- NOTE | 2019-05-04 07:30 | NUR ---
RECEIVED BEDSIDE REPORT FROM CARDIOPULMONARY SPECIALIST RN. PT IS SEDATED, RASS -2. AFEBRILE. FLACC 0. NORMAL SINUS RHYTHM ON MONITOR. ETT TO VENT WITH SETTINGS: A/C VC FIO2 30%, VT 500, RR 14, PEEP 7. LUNGS SOUND CLEAR, DIMINISHED AT BASES. BREATHING EVEN AND UNLABORED. OGT IN PLACE. PLACEMENT CONFIRMED, NO RESIDUALS. ABDOMEN SOFT, NONDISTENDED, NONTENDER WITH ACTIVE BOWEL SOUNDS. PICC LINE TO RIGHT UPPER ARM ASYMPTOMATIC, PATENT AND INTACT, PT IS RECEIVING IVF NS AT 40 ML/HR, AND PROPOFOL DRIP AT 15 MCG/KG/MIN (6.12 ML/HR), DRY WEIGHT 68 KG. PERIPHERAL IVS BOTH G20 TO RIGHT AND LEFT WRISTS PATENT, INTACT AND SALINE LOCKED. URIOSTEGUI CATH IN PLACE DRAINING YELLOW URINE TO GRAVITY. SKIN IS DRY AND WARM TO TOUCH. SKIN IS NON INTACT, TRAUMA WOUND NOTED TO RIGHT MEDIAL LUKE, DRESSING CLEAN, DRY AND INTACT. PULSES PALPABLE TO ALL EXTREMITIES. CAP REFILL < 2 SEC. HOB AT 30 DEGREES. BED IN LOWEST POSITION LOCKED. CALL LIGHT WITHIN REACH, NO SIGNS OF ACUTE DISTRESS NOTED. WILL CONTINUE TO MONITOR.
[2019-05-04] MEDS ORDERED: DEXT 5% / NACL 0.45% 1,000 ML IV SCH (07:35)
--- NOTE | 2019-05-04 07:47 | NUR ---
CHEST X-RAY AT BEDSIDE. NO SIGNS OF DISTRESS NOTED.
--- NOTE | 2019-05-04 08:30 | NUR ---
RESIDENT GROUP AT BEDSIDE. WILL FOLLOW UP ON ORDERS.
[2019-05-04] MEDS: LEVOFLOXACIN 500 MG/D5W PREMIX 100 ML IV SCH (08:33)
[2019-05-04] MEDS: LACTOBACILLUS RHAMNOSUS GG 1 EACH CAP PO SCH (08:34)
[2019-05-04] MEDS: FUROSEMIDE 20 MG/2 ML VIAL IVP SCH (08:34)
[2019-05-04] MEDS: ASPIRIN 81 MG TAB.CHEW PO SCH (08:34)
[2019-05-04] MEDS: amLODIPine 5 MG TAB PO SCH (08:35)
[2019-05-04] MEDS: LOSARTAN 25 MG TAB PO SCH (08:35)
[2019-05-04] MEDS: INSULIN LISPRO SLIDING SCALE 100 UNITS/ML VIAL SUBQ PRN ×3 (08:36→16:11)
[2019-05-04] MEDS: PROPOFOL 1000 MG/100 ML PREMIX 100 ML IV PRN ×2 (08:38→21:38)
[2019-05-04] MEDS ORDERED: FAMOTIDINE 20 MG/2 ML VIAL IVP SCH (09:00)
--- NOTE | 2019-05-04 09:00 | NUR ---
MEDICATIONS ADMINISTERED ORDERED. PT TOLERATED WELL. BP 100/54. PER DR. JAIMES, HOLD COZAAR AND NORVASC AT THIS TIME.
--- NOTE | 2019-05-04 09:18 | NUR ---
PT'S SISTER AT BEDSIDE. PT IS STILL SEDATED, RASS -2, TOLERATING ETT TO VENT. WILL CONTINUE TO MONITOR.
--- NOTE | 2019-05-04 10:09 | NUR ---
PATIENT HAS BEEN SCREENED AND CATEGORIZED HIGH NUTRITION RISK. PATIENT WILL BE SEEN WITHIN 1-2 DAYS OF ADMISSION. 05/04/19 - 05/05/19 HIRA ELENA MBA, RD
--- NOTE | 2019-05-04 10:35 | NUR ---
BACK FROM RADIOLOGY DEPARTMENT, CT CHEST, ABDOMEN, PELVIS W/O CONTRAST DONE. PT TOLERATED WELL.
--- NOTE | 2019-05-04 10:40 | NUR ---
PT SEEN AND EXAMINED BY DR. LYNN. NO NEW ORDER RECEIVED AT THIS TIME.
--- NOTE | 2019-05-04 11:25 | NUR ---
PT'S DAUGHTER AT BEDSIDE. UPDATES GIVEN ON PT'S CONDITION.
--- NOTE | 2019-05-04 11:52 | NUR ---
DR. GONZALEZ IN TO SEE AND EXAMINE PT. WILL FOLLOW UP ON ORDERS.
--- NOTE | 2019-05-04 11:55 | NUR ---
at bedside changed to cpap 7 ps 10 leave on mode if pt fails put back on ac mode.
[2019-05-04] MEDS: SKINTEGRITY HYDROGEL TP SCH (12:23)
--- NOTE | 2019-05-04 13:00 | NUR ---
05/04/2019 RD INITIAL ASSESSMENT COMPLETED PLEASE REFER TO NUTRITION ASSESSMENT UNDER CARE ACTIVITY FOR ESTIMATED NUTRITIONAL NEEDS. RD RECOMMENDATIONS: 1. RECOMMEND TUBE FEEDING GLUCERNA @70MLS/HR. TF PROVIDES 2016KCALS, 100G PROTEIN, AND 1352MLS WATER; SUFFICIENT TO MEET 100% OF PATIENT'S DAILY ESTIMATED NUTRITIONAL NEEDS. 2. START TF @30MLS/HR AND INCREASE, TOLERATED, BY 10MLS/HR Q 8HRS TO REACH GOAL RATE OF 70MLS/HR. 3.RECOMMEND VITAMIN C SUPPLEMENTATION FOR WOUND HEALING. 4. F/U 2-3 DAYS; HIGH RISK HIRA ELENA MBA, RD
--- NOTE | 2019-05-04 13:03 | NUR ---
WOUND CARE AND TREATMENT DONE, DRESSING CHANGED ORDERED. PT TOLERATED WELL.
--- NOTE | 2019-05-04 13:15 | NUR ---
DR. JAIMES MADE AWARE OF RD RECOMMENDATION FOR TUBE FEEDING. WILL FOLLOW UP ON ORDERS.
--- NOTE | 2019-05-04 13:40 | NUR ---
pt back to ac mode failed cpap trail karla ramirez notified no hhn given pt sleeping
--- NOTE | 2019-05-04 15:30 | NUR ---
TUBE FEEDING STARTED AT 30 ML/HR ORDERED. (GOAL RATE 70 ML/HR)
--- NOTE | 2019-05-04 16:03 | NUR ---
VAP ORAL CARE GIVEN. TURNED AND REPOSITIONED, PRESSURE AREAS OFF LOADED. PT TOLERATING ETT TO VENT, STILL ON PROPOFOL DRIP, RASS -2, AFEBRILE. FLACC 0. WILL CONTINUE TO MONITOR.
[2019-05-04] MEDS: NACL 0.9% 1,000 ML IV SCH (16:05)
[2019-05-04] MEDS ORDERED: FUROSEMIDE 40 MG/4 ML VIAL IVP SCH (17:30)
[2019-05-04] MEDS ORDERED: MAG SULF 2000 MG/WATER PREMIX 50 ML IV SCH (17:35)
--- NOTE | 2019-05-04 19:25 | NUR ---
RECEIVED PATIENT ON BED WITH HOB ELEVATED TO 30 DEGREE; SEDATED WITH CONTINOUS PROPOFOL DRIP AT 15 MCG/KG/MIN VIA PICC LINE TO RIGHT UPPER ARM; PATENT AND INTACT. DRY WEIGHT USED IS 69KG. ORALLY INTUBATED AND VENTILATED AT 28% FIO2. CARDIACSCOPE SHOWS ON SINUS RHYTHM, WITH PERMANENT PACEMAKER IN PLACE. IVF IN PROGRESS NORMAL SALINE AT 70 ML/HR VIA PICC LINE TO RIGHT UPPER ARM. ABDOMEN IS SOFT; ON CONTINOUS TUBE FEEDING GLUCERNA 1.2 AT 30 ML/HR WITH GOAL OF 70 ML/HR. WITH URIOSTEGUI CATH IN SITU TO GRAVITY DRAINAGE BAG DRAINING TO CLEAR YELLOW URINE OUTPUT.
--- NOTE | 2019-05-04 19:30 | NUR ---
REPORT GIVEN TO AIR BRAKE WORKER RN FOR CONTINUITY OF CARE. NO SIGNS OF DISTRESS NOTED AT THIS TIME.
--- NOTE | 2019-05-04 20:10 | NUR ---
Received pt stable on vent support at documented settings, suctioned moderate amounts of thick clear yellow secretions, hhn tx given, tolerated well, no resp distress or SOB noted at this time, 7.5 ETT secured at 23 cm at the lip, alarms set and audible, ambu bag at bedside, vent plugged into red outlet and wiped down, cont pulse ox on, will cont to monitor.
[2019-05-04] MEDS: HYDROcodone/APAP 7.5/325 MG 1 TAB PO PRN (21:09)
[2019-05-04] MEDS: ATORVASTATIN 80 MG TAB PO SCH (21:09)
[2019-05-04] MEDS: INSULIN LANTUS 100 UNITS/ML 10 ML VIAL SUBQ SCH (21:13)
--- NOTE | 2019-05-04 22:45 | NUR ---
SEEN AND EXAMINED BY DE. HUSTON; UPDATED ON PATIENT'S MEDICAL CONDITION, NO NEW ORDER MADE.
--- NOTE | 2019-05-04 23:00 | NUR ---
SEEN AND EXAMINED BY DR. HUERTA; HE CHECKED PATIENT'S WOUND ON RIGHT LUKE AND HE SAID PATIENT DOESN'T NEED ANY DEBRIDEMENT.
[2019-05-05] VITALS (96 sets, daily range): BP systolic 93–156; BP diastolic 46–85
--- NOTE | 2019-05-05 | NUR ---
TURNED AND REPOSITIONED PATIENT; ORAL CARE DONE WITH VAP KIT.
--- NOTE | 2019-05-05 05:00 | NUR ---
MORNING BED BATH DONE; KEPT CLEAN DRY AND COMFORTABLE.
[2019-05-05 05:05] LABS: BASOPHILS % (AUTO) 0.1 % (0.0-2.0); HEMATOCRIT 24.5 % (36-48); HEMOGLOBIN 7.5 g/dL (12.0-16.0); LYMPHOCYTES # (AUTO) 0.2 K/uL (2.5-16.5); MEAN CORPUSCULAR HEMOGLOBIN 23 pg (27-31); MEAN CORPUSCULAR HGB CONC 30 g/dL (33-37); MONOCYTES # (AUTO) 0.3 K/uL (0.8-1.0); NEUTROPHILS # (AUTO) 13.5 K/uL (1.8-7.7); PLATELET COUNT (AUTO) 250 K/uL (140-450); RED BLOOD CELL COUNT(AUTO) 3.19 MIL/uL (4.20-5.40); RED CELL DISTRIBUTION WIDTH 18.3 % (11.6-13.7)
[2019-05-05] MEDS: CLINDAMYCIN 600 MG in DEXTROSE 5% 50 ML IV SCH ×3 (05:11→21:09)
[2019-05-05] MEDS: PROPOFOL 1000 MG/100 ML PREMIX 100 ML IV PRN ×2 (05:16→14:02)
[2019-05-05 05:26] LABS: ANION GAP 8.7 (8-16); CARBON DIOXIDE 27.8 mmol/L (21-32); CREATININE 0.8 mg/dL (0.6-1.3); POTASSIUM 3.5 mmol/L (3.5-5.1)
[2019-05-05] MEDS: methylPREDNISolone SS 125 MG/2 ML VIAL IVP SCH ×3 (05:28→21:15)
[2019-05-05 06:05] LABS: LYMPHOCYTES % (AUTO) 1.4 % (20.5-51.1); MONOCYTES % (AUTO) 2.4 % (1.7-9.3); NEUTROPHILS % (AUTO) 96.1 % (42.2-75.2)
[2019-05-05 06:17] LABS: PHOSPHORUS 3.3 mg/dL (2.5-4.9)
[2019-05-05] MEDS: BUDESONIDE 0.5 MG/2 ML NEBU INH SCH ×2 (06:32→19:16)
[2019-05-05] MEDS: ALBUTEROL SULFATE/IPRATROPIU 3 ML SOL IH SCH ×3 (06:32→19:16)
--- NOTE | 2019-05-05 07:25 | NUR ---
ENDORSED TO AM SHIFT RN FOR CONTINUITY OF CARE.
[2019-05-05] MEDS: BLOOD GLUCOSE MONITORING 1 DEV DEV FS SCH ×4 (07:30→21:25)
--- NOTE | 2019-05-05 07:30 | NUR ---
RECEIVED BEDSIDE REPORT FROM SPECIAL EDUCATION PARAEDUCATOR RN. PT IS SEDATED, RASS -2. NORMAL SINUS RHYTHM ON MONITOR. S1 S2 HEARD. CAP REFILL < 2 SEC. PULSES PALPABLE TO ALL EXTREMITIES. ETT TO VENT WITH SETTINGS: A/C VC FIO2 30%, VT 500, RR 14, PEEP 7. LUNGS SOUND CLEAR BILATERALLY. BREATHING EVEN AND UNLABORED. OGT IN PLACE. PLACEMENT CONFIRMED, NO RESIDUALS. PT IS ON TUBE FEEDING GLUCERNA 1.2 AT 40 ML/HR, RATE INCREASED TO 50 ML/HR (GOAL 70 ML/HR) WITH FWF 100 ML Q4H. ABDOMEN SOFT, NONDISTENDED, NONTENDER WITH ACTIVE BOWEL SOUNDS. PICC LINE TO RIGHT UPPER ARM ASYMPTOMATIC, PATENT AND INTACT, PT IS RECEIVING IVF NS AT 50 ML/HR, AND PROPOFOL DRIP AT 25 MCG/KG/MIN (DRY WEIGHT 68 KG). URIOSTEGUI CATH IN PLACE DRAINING CLEAR YELLOW URINE TO GRAVITY DRAINAGE BAG. SKIN IS DRY AND WARM TO TOUCH. SKIN IS NON INTACT, TRAUMA WOUND NOTED TO RIGHT MEDIAL LUKE, DRESSING CLEAN, DRY AND INTACT. BED IN LOWEST POSITION LOCKED. HOB AT 30 DEGREES. CALL LIGHT WITHIN REACH, NO SIGNS OF ACUTE DISTRESS NOTED. AFEBRILE. FLACC 0. WILL CONTINUE TO MONITOR.
--- NOTE | 2019-05-05 07:50 | NUR ---
DR. LYNN IN TO SEE AND EXAMINE PT. DR. LYNN AWARE OF HGB 7.5 AND HCT 24.5. NO ACTIVE BLEEDING NOTED AT THIS TIME. WILL FOLLOW UP ON ORDERS.
[2019-05-05] MEDS: NACL 0.9% 1,000 ML IV SCH (07:54)
--- NOTE | 2019-05-05 08:15 | NUR ---
RESIDENT GROUP IN TO SEE PT. PER DR. JAVIER, HOLD HEPARIN AND ASPIRIN TODAY DUE TO LOW H&H. ALSO HOLD MORNING BLOOD PRESSURE MEDICATIONS DUE TO LOW BP.
--- NOTE | 2019-05-05 08:34 | NUR ---
RECEIVED CALL FROM DR. DECKER. DR. DECKER MADE AWARE THAT ACCORDING DR. HUERTA, PT DOES NOT REQUIRE DEBRIDEMENT OF RIGHT LOWER EXTREMITY AT THIS TIME.
[2019-05-05] MEDS: amLODIPine 5 MG TAB PO SCH (08:38)
[2019-05-05] MEDS: ASPIRIN 81 MG TAB.CHEW PO SCH (08:38)
[2019-05-05] MEDS: LOSARTAN 25 MG TAB PO SCH (08:38)
[2019-05-05] MEDS: POTASSIUM CHLORIDE 20% 40 MEQ/15 ML UDC PO SCH (08:53)
[2019-05-05] MEDS: LACTOBACILLUS RHAMNOSUS GG 1 EACH CAP PO SCH (08:53)
[2019-05-05] MEDS: LEVOFLOXACIN 500 MG/D5W PREMIX 100 ML IV SCH (08:54)
[2019-05-05] MEDS: INSULIN LISPRO SLIDING SCALE 100 UNITS/ML VIAL SUBQ PRN ×3 (08:55→16:43)
[2019-05-05] MEDS ORDERED: FUROSEMIDE 40 MG/4 ML VIAL IVP SCH (09:00)
--- NOTE | 2019-05-05 09:00 | NUR ---
SEDATION HELD FOR SBT.
[2019-05-05] MEDS: ASCORBIC ACID 500 MG TAB PO SCH (09:15)
[2019-05-05] MEDS ORDERED: KCL 20 MEQ/WATER INJ PREMIX 200 ML IV SCH (09:30)
--- NOTE | 2019-05-05 09:45 | NUR ---
VENT TURNED BACK TO AC MODE. RT MADE AWARE. SEDATION RESUMED.
--- NOTE | 2019-05-05 10:00 | NUR ---
PT FAILED TOW SBT TRIALS HIGH RR , LOW VT
[2019-05-05] MEDS: SODIUM FERRIC GLUCONATE 125 MG in NACL 0.9% 100 ML IV SCH (10:03)
--- NOTE | 2019-05-05 11:50 | NUR ---
PT'S DAUGHTER AT BEDSIDE. UPDATES GIVEN ON PT'S CONDITION. PT STILL ON PROPOFOL DRIP, RASS -2. AFEBRILE. FLACC 0. TOLERATING TUBE FEEDING. ETT TO VENT. URIOSTEGUI CATH DRAINING CLEAR YELLOW URINE. SAFETY PRECAUTIONS IN PLACE AND CALL LIGHT WITHIN REACH. WILL CONTINUE TO MONITOR.
[2019-05-05] MEDS: SKINTEGRITY HYDROGEL TP SCH (12:16)
--- NOTE | 2019-05-05 13:00 | NUR ---
WOUND TREATMENT GIVEN ORDERED. PT TOLERATED WELL.
--- NOTE | 2019-05-05 15:20 | NUR ---
PT SEEN BY DR. HUSTON. UPDATES GIVEN ON PT'S CONDITION. NO NEW ORDER RECEIVED AT THIS TIME.
[2019-05-05] MEDS: FUROSEMIDE 40 MG/4 ML VIAL IVP SCH ×2 (15:30→16:39)
--- NOTE | 2019-05-05 15:30 | NUR ---
DR. GONZALEZ IN TO SEE PT. WILL FOLLOW UP ON ORDERS.
[2019-05-05] MEDS: HYDROcodone/APAP 7.5/325 MG 1 TAB PO PRN (15:31)
--- NOTE | 2019-05-05 16:00 | NUR ---
VAP ORAL CARE GIVEN. TURNED AND REPOSITIONED. PT IS RASS -2. ON PROPOFOL DRIP. TOLERATING TUBE FEEDING, NO RESIDUALS. TF RATE INCREASED TO 60 ML/HR. GOAL RATE IS 70 ML/HR.
[2019-05-05] MEDS: LORazepam 2 MG/ML VIAL IVP PRN (16:52)
[2019-05-05 18:18] LABS: HEMATOCRIT 26.5 % (36-48); MEAN CORPUSCULAR HEMOGLOBIN 23 pg (27-31); MEAN CORPUSCULAR HGB CONC 30 g/dL (33-37); MEAN CORPUSCULAR VOLUME 77.3 fL (80-94); PLATELET COUNT (AUTO) 266 K/uL (140-450); RED BLOOD CELL COUNT(AUTO) 3.43 MIL/uL (4.20-5.40); RED CELL DISTRIBUTION WIDTH 18.2 % (11.6-13.7); WHITE BLOOD COUNT (AUTO) 17.3 K/uL (4.8-10.8)
--- NOTE | 2019-05-05 18:18 | NUR ---
DR. PENA IN THE UNIT TO SEE AND EXAMINE PT. WILL FOLLOW UP ON ORDERS.
--- NOTE | 2019-05-05 19:24 | NUR ---
RECEIVED PT INTUBATED WITH ETT SIZE 7.5 @ 23CM LIP LEVEL AND SECURED WITH ANCHOR-FAST. PT ON VENT SETTINGS ORDERED; VENT PLUGGED IN RED OUTLET; BVM AT BEDSIDE; HOB > 30; AND ALARMS SET AND AUDIBLE. SX SMALL AMOUNT OF HARKINS THICK SECRETIONS FROM THE ETT. NO RESPIRATORY DISTRESS NOTED AT THIS TIME; SP02 OF 95% AND A COARSE BREATH SOUNDS. HHN TX GIVEN ORDERED WITHOUT ANY ADVERSE REACTION. WILL CONTINUE TO MONITOR PT.
--- NOTE | 2019-05-05 19:30 | NUR ---
RECEIVED REPORT FROM DAY SHIFT PATIENT IS ORALLY VENTED ON AC MODE RATE OF 14 WITH 40% FIO2,PATIENT IS SATURATING 97% INITIAL ASSESSMENT.PATIENT IS SEDATED WIT PROPOFOL AT 20 MCG/KG/MIN USING DRY WIEIGHT OF 68 KG.PATIENT IS EASILY AROUSES AND EASILY AGITATED AND ATTEMPS TO PULL ETT IF NOT RESTRAINT.PATIENT IS IN SINUS RYTHM.NO ACUTE DISTRESS OBSERVED AT THIS TIME.PATIENT IS ON CONTINOUS FEEDING WITH GLUCOCARE 1.2 AT 60CC/HR THRU OROGASTRIC TUBE.PATIENT WITH MAINTENANCE IV INFUSING THRU RIGHT UPPER ARM PICC LINE.SITE IS W/O ANY REDNESS.PATIENT HAS A WOUND ON RIGHT ANT LUKE W/ DRESSING THAT IS DRY AND INTACT.PATIENT IS NOTED TO HAVE AREAS OF BRUISING ON BOTH UPPER ARMS PATIENT IS TOLERATING HER FEEDING KEPT HEAD OF BED ELEVATED.
--- NOTE | 2019-05-05 19:35 | NUR ---
REPORT GIVEN TO ADMISSIONS OFFICER RN FOR CONTINUITY OF CARE. PT IS IN STABLE CONDITION.
[2019-05-05 20:07] LABS: BASOPHILS % (MANUAL) 0 % (0-2); EOSINOPHILS % (MANUAL) 0 % (0-4); LYMPHOCYTES % (MANUAL) 1 % (20-46); MONOCYTES % (MANUAL) 2 % (5-12)
[2019-05-05] MEDS: ATORVASTATIN 80 MG TAB PO SCH (21:16)
[2019-05-05] MEDS: INSULIN LANTUS 100 UNITS/ML 10 ML VIAL SUBQ SCH (21:30)
[2019-05-06] VITALS (88 sets, daily range): BP systolic 83–165; BP diastolic 42–99
--- NOTE | 2019-05-06 | NUR ---
PATIENT AWAKE VERY AGITATED ,RESTLESS TITRATED PROPOFOL MEDICATED WITH ATIVAN 1 MG IVP.PATIENT ALSO STARTS TO DESAT URATE,RESPIRATORY THERAPIST ADJUSTED ETT AND PATIENT SUCTIONED KEPT HEAD OF BED ELEVATED.KEPT PATIENT ON WRIST RESTRAINT.
[2019-05-06] MEDS: LORazepam 2 MG/ML VIAL IVP PRN ×2 (00:25→12:46)
[2019-05-06] MEDS: PROPOFOL 1000 MG/100 ML PREMIX 100 ML IV PRN ×5 (00:30→19:59)
[2019-05-06] MEDS: NACL 0.9% 1,000 ML IV SCH ×2 (02:34→22:04)
--- NOTE | 2019-05-06 03:00 | NUR ---
PATIENT CALMER AT THIS TIME BUT EASILY GETS AFITATED WITH MINIMAL STIMULATION.MONITOR REMAIN SINUS RYTHM.SATURATION IS BETWEEN 92-94%.BLOOD PRESSURE IS STABLE AFEBRILE.TOLERATES FEEDING WELL.
[2019-05-06] MEDS: CLINDAMYCIN 600 MG in DEXTROSE 5% 50 ML IV SCH ×3 (05:07→20:25)
[2019-05-06] MEDS: methylPREDNISolone SS 125 MG/2 ML VIAL IVP SCH ×3 (05:08→20:25)
[2019-05-06 05:55] LABS: BASOPHILS # (AUTO) 0.1 K/uL (0.00-0.22); BASOPHILS % (AUTO) 0.5 % (0.0-2.0); HEMATOCRIT 24.6 % (36-48); HEMOGLOBIN 7.5 g/dL (12.0-16.0); LYMPHOCYTES # (AUTO) 0.1 K/uL (2.5-16.5); LYMPHOCYTES % (AUTO) 0.7 % (20.5-51.1); MEAN CORPUSCULAR HEMOGLOBIN 24 pg (27-31); MEAN CORPUSCULAR HGB CONC 30 g/dL (33-37); MEAN CORPUSCULAR VOLUME 77.8 fL (80-94); MONOCYTES # (AUTO) 0.7 K/uL (0.8-1.0); MONOCYTES % (AUTO) 3.8 % (1.7-9.3); NEUTROPHILS # (AUTO) 17.2 K/uL (1.8-7.7); PLATELET COUNT (AUTO) 239 K/uL (140-450); RED BLOOD CELL COUNT(AUTO) 3.16 MIL/uL (4.20-5.40); WHITE BLOOD COUNT (AUTO) 18.1 K/uL (4.8-10.8)
[2019-05-06 05:59] LABS: CARBON DIOXIDE 32.1 mmol/L (21-32); CREATININE 0.7 mg/dL (0.6-1.3); POTASSIUM 4.1 mmol/L (3.5-5.1)
[2019-05-06 06:03] LABS: MAGNESIUM 2.5 mg/dL (1.8-2.4); PHOSPHORUS 2.6 mg/dL (2.5-4.9)
[2019-05-06] MEDS: BUDESONIDE 0.5 MG/2 ML NEBU INH SCH ×2 (06:40→19:02)
[2019-05-06] MEDS: ALBUTEROL SULFATE/IPRATROPIU 3 ML SOL IH SCH ×3 (06:40→19:02)
--- NOTE | 2019-05-06 06:40 | NUR ---
rec'd pt on carescape vent settings ac 14 vt 500 peep 7 fio2 30% alarms on and audible and ambu bag at side of vent and vent is plugged into red outlet, i\l txs given with duoneb 3ml and pulmicort 0.5mg with no adverse reaction post tx b\s are coarse bilaterally, sxn pt small am to cream color secretions, pt is orally intubated with 7.5 et tube secured with anchor fast at 23cm pt is resting with no signs of distress noted
[2019-05-06] MEDS ORDERED: PROBIOTIC SCREEN 1 EA MISC MC PRN (07:00)
[2019-05-06] MEDS ORDERED: FERROUS GLUCONATE 324 MG TAB PO SCH (08:00)
[2019-05-06] MEDS: INSULIN LISPRO SLIDING SCALE 100 UNITS/ML VIAL SUBQ PRN ×3 (08:13→16:27)
[2019-05-06] MEDS: BLOOD GLUCOSE MONITORING 1 DEV DEV FS SCH ×4 (08:13→20:26)
--- NOTE | 2019-05-06 08:15 | NUR ---
RECEIVED REPORT FROM RIKY MORRISON. PT IS ORALLY INTUBATED TO VENT TV 500, FI02 30%, AC 14/MIN, PEEP 5. 02 SAT 97%. ON PROPOFOL AT 40 MCG/KG/MIN (16.32 MLS/HR) DRY WEIGHT IS 68 KG. KEEP RASS -2. PICC LINE ON RT UPPER ARM INTACT AND PATENT. MAIN IVF 0.9 NS AT 50 ML/HR. OGT INTACT. GLUCERNA 1.2 INFUSING AT 70 ML/HR 1ITH 100 ML Q 4 HRS H20 FLUSHES. PLACEMENT VERIFIED BY AIRCHECK RESIDUAL 20 ML. HOB ELEVATED 30 DEGREES. ECCHYMOSIS NOTED ON BOTH UPPER EXT. DRESSINGS OVER RT LEG WOUND DRY AND INTACT. URIOSTEGUI CATH. INTACT AND PATENT DRAINING WELL CLEAR YELLOWISH URINE.
[2019-05-06] MEDS: ASCORBIC ACID 500 MG TAB PO SCH (08:41)
[2019-05-06] MEDS: LACTOBACILLUS RHAMNOSUS GG 1 EACH CAP PO SCH (08:41)
[2019-05-06] MEDS: FUROSEMIDE 40 MG/4 ML VIAL IVP SCH ×3 (08:41→17:04)
[2019-05-06] MEDS: LEVOFLOXACIN 500 MG/D5W PREMIX 100 ML IV SCH (08:41)
[2019-05-06] MEDS: LOSARTAN 25 MG TAB PO SCH (08:42)
[2019-05-06] MEDS: POTASSIUM CHLORIDE 20% 40 MEQ/15 ML UDC PO SCH (08:42)
--- NOTE | 2019-05-06 09:00 | NUR ---
INCONTINENT OF SOFT SEMI SOLID STOOLS. BATH GIVEN. LINENS CHANGED.
[2019-05-06] MEDS: SODIUM FERRIC GLUCONATE 125 MG in NACL 0.9% 100 ML IV SCH (09:58)
[2019-05-06] MEDS: amLODIPine 5 MG TAB PO SCH (09:58)
--- NOTE | 2019-05-06 10:00 | NUR ---
DAUGHTER HARRIS AT BEDSIDE. UPDATED ON PT'S CONDITION.
--- NOTE | 2019-05-06 11:45 | NUR ---
INCONTINENT OF MOD AMT SEMI SOLID BROWN STOOLS. DR. ANDRADE AWARE. NO NEW ORDERS GIVEN.
--- NOTE | 2019-05-06 12:45 | NUR ---
DR. POWELL HERE TO SEE AND EXAMINE PT. SPOKE TO PT'S DAUGHTER AT BEDSIDE.
--- NOTE | 2019-05-06 12:46 | NUR ---
PT RESTLESS IN BED. KEEPS ON KICKING COVERS. PROPOFOL AT 50 MCG/KG/MIN. ATIVAN 1 MG SLOW IVP GIVEN.
[2019-05-06] MEDS: SKINTEGRITY HYDROGEL TP SCH (12:57)
--- NOTE | 2019-05-06 13:00 | NUR ---
NOT RESTLESS AT THIS TIME. RASS-2
--- NOTE | 2019-05-06 13:05 | NUR ---
Incubator Operator Note: I called patient's daughter Marguerite Oquendo , no answer, left message.
[2019-05-06] MEDS ORDERED: HYDRAGUARD CREAM TP PRN (13:30)
--- NOTE | 2019-05-06 13:31 | NUR ---
DISCHARGE PLANNING: A 63 Y/O FEMALE PATIENT FROM HOME, WHO CAME IN DUE TO SOB X 1 DAY. PAST MEDICAL HISTORY OF LUPUS, PULMONARY FIBROSIS, DIABETES, HTN, DYSLIPIDEMIA, LUMBAGO, CHRONIC MIGRAINE AND ACS. INITIAL DIAGNOSIS OF RESPIRATORY FAILURE AND PNEUMONIA. CURRENT LABS INCLUDE WBC 18.1, H/H 7.5/24.6, NA/K 139/4.1, BUN/CREA 24/0.7 AND MAG 2.5. ON LEVOFLOXACIN AND CLINDAMYCIN. ID, SURGICAL, PULMO AND CARDIO CONSULTS IN PLACE. DC PLAN PENDING ON PATIENT'S RESPONSE TO TREATMENT. Addendum: 05/07/19 at 0847 by Prema Oh STILL IN ICU, ETT TO VENT FIO2 30%, O2 SAT 98%. SEDATED WITH PROPOFOL DRIP. CURRENT LABS INCLUDE WBC 17.2, H/H 7.6/24.7, NA/K 141/4.9, BUN/CREA 31/0.8. NO MRSA NARES NEGATIVE. WOUND CULTURE SHOWED MANY GRAM POSITIVE COCCI, URINE C/S NEGATIVE. SPUTUM C/S SHOWED MODERATE PSEUDO FLUORESCENS/PUTIDA. ID, SURGICAL, PULMO AND CARDIO CONSULTS IN PLACE. DC PLAN PENDING ON PATIENT'S RESPONSE TO TREATMENT. Addendum: 05/08/19 at 1134 by Prema Oh STILL IN ICU, ETT TO VENT FIO2 30%. ON FENTANYL AND VERSED DRIP. ON BILATERAL SOFT WRIST RESTRAINTS. WITH OGT FEEDING IN PLACE. DAISY PICC LINE. CURRENT LABS INCLUDE WBC 19.4, H/H 7.8/25.1, BUN/CREA 38/0.9. CURRENT CXR SHOWED NO SIGNIFICANT CHANGE IN PATCHY AIRSPACE EDEMA VS INFILTRATE. ON SOLU MEDROL, LASIX IV, LEVOFLOXACIN AND CLINDAMYCIN. DC PLAN PENDING ON PATIENT'S RESPONSE TO TREATMENT. Addendum: 05/09/19 at 0942 by Prema Oh STILL ORALLY INTUBATED, FIO2 24%. STILL ON FENTANYL AND VERSED DRIP. ON BILATERAL SOFT WRIST RESTRAINTS. CURRENT LABS INCLUDE WBC 18.3, H/H 7.5/24.4, NA/K 138/3.9, BUN/CREA 37/0.8 AND D DIMER 601. STILL ON SOLU-MEDROL, LEVOFLOXACIN AND CLINDAMYCIN. ID, SURGICAL, CARDIO AND PULMO CONSULTS IN PLACE. DC PLAN PENDING ON PATIENT RESPONSE TO TREATMENT. Addendum: 05/10/19 at 1607 by Prema Oh CM PATIENT TOLERATED CPAP TRIAL FOR 45 MINS. CURRENT LABS INCLUDE WBC 19.4, H/H 8.1/25.8, NA/K 140/3.4, BUN/CREA 36/0.7. STILL ON SOLU MEDROL, LASIX IV, LEVO AND CLINDAMYCIN. ON FENTANYL AND VERSED DRIP. ID, SURGICAL, CARDIO AND PULMO CONSULTS IN PLACE. DC PLAN PENDING ON PATIENT RESPONSE TO TREATMENT. Addendum: 05/11/19 at 1538 by Lashell Amezquita CM DC PLANNING: PATIENT FAILED WEANING TRIAL WITH CPAP AFTER 45 MINUTES WBC INCREASED TO [address] GILLIS RECOMMENDED TO CONTINUE WITH MECHANICAL VENTILATION , LIKELY PT WILL NEED TRACHEOSTOMY ,DECREASE LASIX ,CONTINUE BREATHING TREATMENT AND STEROIDS. DC PLAN PER PT RESPONSE TO TREATMENT. CM TO FOLLOW Addendum: 05/13/19 at 1156 by Prema Oh STILL IN ICU, ETT TO VENT FIO2 24%. CURRENT LABS INCLUDE WBC 19.0, H/H 7.9/26.0, NA/K 136/4.3, BUN/CREA 27/0.6. ON SOLU-MEDROL, CLINDAMYCIN AND LEVOFLOXACIN. ON VERSED AND FENTANYL DRIP. FOR TRACH AND PEG PLACEMENT TODAY WITH DR. HUERTA. Addendum: 05/15/19 at 1038 by Prema Oh CM RECEIVED AN ORDER FOR LTAC EVAL. CONTACTED PATIENT'S DAUGHTER HARRIS ORNELAS AT [phone] REGARDING DC PLAN AND IS IN AGREEMENT. ALL CONCERNS AND QUESTIONS ANSWERED. REFERRAL SENT TO [facility]. Addendum: 05/15/19 at 1133 by Prema Oh CM STILL IN ICU, TRACH TO VENT 24%. ON BILATERAL SOFT WRIST RESTRAINTS. STILL ON FENTANYL AND VERSED. G TUBE IN PLACE. DAISY PICC LINE AND FC IN PLACE. CURRENT LABS INCLUDE WBC 22.4, H/H 8.0/26.3, NA/K 137/3.9, BUN/CREA 16/0.5. ON SOLU MEDROL, LEVOFLOXACIN AND CLINDAMYCIN. DC PLAN PENDING ON PATIENT'S RESPONSE TO TREATMENT. Addendum: 05/20/19 at 1336 by Prema Oh CM LATE ENTRY FOR TODAY: 0852: PER [facility], THEY MIGHT HAVE AN OPEN BED TODAY. DR. ANDRADE MADE AWARE DURING BED HUDDLE. UPDATED CLINICALS FAXED TO [facility]. 1130: CONTACTED PATIENT'S DAUGHTER HARRIS, SHE STATED SHE IS IN THE HOSPITAL. MET WITH HER AT THE FRONT LOBBY WITH HER 2 AUNTS. I DISCUSSED DC PLAN THAT WE MIGHT HAVE A BED TODAY AT [facility] AND IS IN AGREEMENT. I ALSO INFORMED HER SOON I GET THE BED NUMBER, ACCEPTING DOCTOR AND APRON TRIMMER TIME, I WILL CONTACT HER. ABLE TO VERBALIZE UNDERSTANDING. 1209: PER GLORIA OF [facility], HE WILL COME BY IN THE AFTERNOON. Addendum: 05/20/19 at 1456 by Prema Oh CM RECEIVED A CALL FROM CHARGE NURSE STATING THAT PER DR. RAMOS TO HOLD OFF ON THE LTAC TRANSFER. WENT TO ICU AND SPOKE WITH DR. RAMOS, HE STATED PATIENT IS NOT STABLE FOR TRANSFER TODAY DUE TO [place]. HE STATED THAT WE'LL MONITOR THE PATIENT FOR NOW. GLORIA FROM [facility] MADE AWARE. DR. ANDRADE MADE AWARE, HE STATED DR. RAMOS SPOKE TO HIM WELL. Addendum: 05/21/19 at 1040 by Prema Oh CM PER DR ANDRADE, HE SPOKE WITH DR. RAMOS REGARDING PATIENT'S CONDITION. HE STATED, PER DR. RAMOS, PATIENT IS DOING MUCH BETTER NOW HOWEVER, THE PNEUMONIA IS WORSENING AND ABLE TO CONTACT ID. ID WILL CHANGE ANTIBIOTIC TO MERREM AND VANCO. WILL CONTINUE TO MONITOR. Addendum: 05/22/19 at 1555 by Prema Oh PER GLORIA LOCKHART [facility], NO ICU BEDS YET AT [facility] HOWEVER HE WILL CHECK WITH MICHAEL AND ONCE BED AVAILABLE HE WILL REACH OUT TO THE PATIENT'S DAUGHTER. CHARGE NURSE [facility] MADE AWARE. Addendum: 05/22/19 at 1700 by Prema Oh CM PER [facility], [facility] HAS AN AVAILABLE ICU BED AND PATIENT CAN GO TO ICU [address] P[address] SPOKE TO THE PATIENT'S DAUGHTER NICK AT THE BEDSIDE TO DISCUSS DC PLAN, SHE REFUSED PATIENT TO BE TRANSFERRED TO [facility], SHE SAID "IT IS TOO FAR FOR US, BECAUSE I LIVE IN [place]." I EXPLAINED TO HER THAT [facility] IS ONLY 11 MINS FURTHER THAN GL[facility]. SHE SAID "IT IS TOO FAR, WE WILL WAIT UNTIL [facility] HAS AN OPEN BED." PRESTON, DR. LYNN AND DR. MADDOX MADE AWARE. Addendum: 05/23/19 at 0758 by Prema Oh CM LATE ENTRY FOR 05/22/2019 AT 1715: IMM LETTER PROVIDED TO PATIENT'S DAUGHTER. SHE STATED SHE WILL CALL TO APPEAL THE DISCHARGE. WILL WAIT FOR [place]'S RESPONSE. WILL FOLLOW UP. Addendum: 05/23/19 at 0800 by Prema Oh CM CONTACTED PATIENT'S DAUGHTER HARRIS TO FOLLOW UP ON THE DISCHARGE APPEAL. SHE CLAIMED THAT SHE CALLED YESTERDAY, HOWEVER, THERE WAS NO ANSWER AND SHE LEFT HER CONTACT INFO. SHE ALSO STATED THAT SHE WILL CALL IN AN HOUR TO FOLLOW UP AND WILL GIVE ME A CALL TO INFORM ME. Addendum: 05/23/19 at 1551 by Prema Oh CM LATE ENTRY: CONTACTED PATIENT'S DAUGHTER HARRIS TO FOLLOW UP ON THE APPEAL. SHE STATED SHE CONTACTED [facility] AGAIN, BUT NO ANSWER AND SHE LEFT A MESSAGE. PER [facility], [facility] WILL CALL APRON TRIMMER WAS ARRANGE WITH BALWINDER AT [phone] WITH BRI. Addendum: 05/24/19 at 0817 by Prema Oh CM LATE ENTRY FROM YESTERDAY: EMMA [facility], PATIENT CAN GO [place] [facility] [place] [facility] [place] [address]. RODRIGUEZ. REQUESTING TRANSPORT FOR 1999. AND THEN CALLED ME BACK STATING TO HOLD OFF ON TRANSFER DUE TO A PATIENT CODED AT [facility]. HE STATED HE WILL FOLLOW UP WITH ME IN THE MORNING. Addendum: 05/24/19 at 0859 by Prema Oh CM EMMA PRESOTN, HE IS WORKING ON GETTING A BED TODAY. WILL FOLLOW UP. Addendum: 05/24/19 at 1017 by Prema Oh CM CONTACTED PATIENT'S DAUGHTER HARRIS, TO FOLLOW WITH . SHE STATED SHE DID NOT HEAR ANYTHING BACK FROM THEM. I INFORMED HER THAT SHE HAS TO CALL AGAIN OR ELSE SHE WILL BE FINANCIALLY RESPONSIBLE SINCE WE FOUND A PLACEMENT FOR THE PATIENT LAST MONDAY. SHE STATED SHE WILL CALL AGAIN TODAY. SHE ASKED ME IF I RECEIVED ANYTHING FROM [facility] SINCE SHE HAS BEEN LEAVING MESSAGES. I TOLD HER THAT UNTIL NOW I HAVE NOT RECEIVED ANYTHING. I ALSO TOLD HER TO CALL ME BACK SOON SHE HEARS ANYTHING FROM [facility]. SHE ALSO ASKED ME IF I HEARD ANYTHING FROM [facility], INFORMED HER THAT [facility] IS STILL WORKING ON A BED. ABLE TO VERBALIZE UNDERSTANDING. Addendum: 05/24/19 at 1101 by Prema Oh CM CONTACTED PATIENT'S DAUGHTER HARRIS TO GET AN UPDATE ON THE DC APPEAL, NO ANSWER. LEFT VOICEMAIL. RECEIVED A CALL FROM JOJO WESTBROOK) COVERING FOR [facility] TODAY. HE STATED HE IS WORKING ON FINDING A BED FOR THE PATIENT. RECEIVED A CALL BACK FROM PATIENT'S DAUGHTER HARRIS, STATING THE SHE IS ABLE TO CONTACT [facility] AND THE CASE NUMBER IS [id number]. I INFORMED HER THAT I WILL WAIT FOR THEIR FAX AND I WILL SUBMIT ALL THE PAPER WORKS THEY WILL BE REQUESTING. GUANAKO TO FOLLOW UP. Addendum: 05/24/19 at 1110 by Prema Oh CM RECEIVED A CALL FROM JOJO OSORIO UPDATED CLINICALS TO BE SENT TO [phone]. CLINICALS SENT TO THE PROVIDED NUMBER. Addendum: 05/24/19 at 1620 by Lashell Amezquita CM DC PLANNING: RECEIVED A CALL FROM [facility] ACCEPTED PATIENT CAN GO TO ROOM 503 # TO GIVE REPORT [phone] APRON TRIMMER TIME WILL BE 7 PM NOTIFIED [facility] ICU CHARGE NURSE WILL ARRANGE TRANSPORT .
[2019-05-06] MEDS ORDERED: Z-GUARD PASTE TP PRN (13:35)
--- NOTE | 2019-05-06 16:00 | NUR ---
OGT RESIDUAL 10 ML. TOLERATING FEEDING WELL. NUTRITION SERVICES ASSOCIATE SHOWS SR WITHOUT ECTOPICS.
--- NOTE | 2019-05-06 16:58 | NUR ---
ENVIRONMENTAL SCIENTISTS assessment/discharge plan High Risk DC Screen Yes Name: Marguerite Oquendo Home Relationship: daughter Pre-Admission Living Arrangements: Lives with Other Other: mother Prior ADL Independent Current Home Health Name/Tel: N/A Current DME/02 Name/Tel: prn home O2 Current Hospice Name/Tel: N/A Current Dialysis Name/Tel: N/A Healthcare Decision Maker: Patient Tentative Discharge Plan Summary: Patient is a 63 year old female admitted for respiratory failure and PNA. Patient is currently intubated. I called and obtained the following information from patient's daughter Marguerite Oquendo. Patient lives at home with her mother and discharge plan at this time is to be determined. Patient's pcp is Jason Cobian and she does not have any difficulty filling her prescriptions at pharmacy. Patient does not have hx of mental health or alcohol/substance abuse. Patient drives to pcp's office. Marguerite has had good communication with attending MD/resident MD regarding patient's medical condition and plan of care. She told me she thinks patient has an Advance Directive which lists Marguerite as primary agent. Marguerite will look for Advance Directive in patient's home and if she finds it she will bring it to hospital. She reported she is patient's health care decision maker. Pharm Tech and/or [employer] Principal will follow up as needed. Signature: YARELY Ochoa Date: May 06, 2019
--- NOTE | 2019-05-06 17:00 | NUR ---
HAD MODERATE AMOUNT OF SEMI SOLID STOOLS. PERINEAL CARE DONE Z GUARD APPLIED TO PERINEAL AND RECTAL AREA AFTER.
--- NOTE | 2019-05-06 17:30 | NUR ---
PT'S MOTHER AND SISTER AT BEDSIDE.
--- NOTE | 2019-05-06 18:00 | NUR ---
PROPOFOL DRIP AT 50 MCG/KG/MIN, RASS -2. ETT SIZE 7.5 TO VENT TV 500, FI02 30%,AC 14, PEEP 7. 02 SAT 99%.
--- NOTE | 2019-05-06 19:21 | NUR ---
RECEIVED PT INTUBATED WITH ETT SIZE 7.5 @ 23CM LIP LEVEL AND SECURED WITH ANCHOR-FAST. PT ON VENT SETTINGS ORDERED; VENT PLUGGED IN RED OUTLET; BVM AT BEDSIDE; HOB > 30; AND ALARMS SET AND AUDIBLE. SX SMALL AMOUNT OF HARKINS THICK SECRETIONS FROM THE ETT. NO RESPIRATORY DISTRESS NOTED AT THIS TIME; SP02 OF 99% AND A COARSE BREATH SOUNDS. HHN TX GIVEN ORDERED WITH NO ADVERSE REACTION. FAMILY AT BEDSIDE. WILL CONTINUE TO MONITOR PT.
--- NOTE | 2019-05-06 19:30 | NUR ---
RECEIVED REPORT FROM RIKY WEBB. PT RESTING IN BED, AROUSABLE TO LIGHT PAIN. PERRL. ETT TO VENT WITH SETTINGS FOLLOWS: AC/VC: TV 450, RR16, PEEP 7, FI02 30% SPO2 97%. DRY WEIGHT 68KG, PROPOFOL INFUSING TO DAISY PICC @ 50MCG/KG/MIN. 0.9% NS AT 50ML/HR. RASS -2 PER MD ORDERS. LUNGS CLEAR THROUGHOUT. OGT + PLACEMENT VERIFIED VIA AIR BOLUS. 10CC RESIDUAL. GLUCERNA 1.2 RUNNING AT 70CC/HR, FWF 100CC Q4. INDWELLING URINARY CATH PATENT DRAINING CLEAR, YELLOW URINE TO GRAVITY. WOUND TO RT LAT LOWER LEG COVERED WITH CLEAN DRY DRESSING, CHANGED IN AM PER DAY SHIFT. REMAINS ON SOFT WRIST RESTRAINTS D/T ATTEMPTING TO PULL ETT. CIRCULATION WNL, NO INJURIES NOTED. HOB ELEVATED 30 DEGREES, SAFETY PRECAUTIONS REMAIN IN PLACE. BED LOW AND LOCKED WITH SIDE RAILS UP X2. WILL CONTINUE TO MONITOR.
[2019-05-06] MEDS: ATORVASTATIN 80 MG TAB PO SCH (20:25)
[2019-05-06] MEDS: INSULIN LANTUS 100 UNITS/ML 10 ML VIAL SUBQ SCH (20:33)
--- NOTE | 2019-05-06 20:36 | NUR ---
PHONE CALL TO DR MADDOX; BS 135; PT WITH ORDERED LANTUS 60UNITS; PHYSICIAN SAID TO HOLD THE LANTUS DOSE.
--- NOTE | 2019-05-06 22:00 | NUR ---
VAP ORAL CARE PROVIDED. REPOSITIONED WITH PRESSURE AREAS OFFLOADED. CATHETER CARE PERFORMED. HOB AT 30 DEGREES. BED LOW AND LOCKED. SIDE RAILS UP X2. WILL CONTINUE TO MONITOR FOR CHANGES.
[2019-05-07] VITALS (106 sets, daily range): BP systolic 84–185; BP diastolic 37–99
--- NOTE | 2019-05-07 | NUR ---
MEDIUM LOOSE BOWEL MOVEMENT NOTED AT THIS TIME. HORACIO CARE PROVIDED. REPOSITIONED WITH PRESSURE AREAS OFFLOADED. WILL CONTINUE TO MONITOR.
[2019-05-07] MEDS: PROPOFOL 1000 MG/100 ML PREMIX 100 ML IV PRN ×3 (00:54→08:57)
[2019-05-07] MEDS: Z-GUARD PASTE TP SCH ×2 (00:55→13:00)
[2019-05-07] MEDS: HYDRAGUARD CREAM TP SCH ×2 (00:55→01:37)
--- NOTE | 2019-05-07 02:00 | NUR ---
REPOSITIONED WITH PRESSURE AREAS OFFLOADED. VSS. VAP ORAL CARE PROVIDED. FLACC 0. HOB 30 DEGREES. BED LOW AND LOCKED. SIDE RAILS UP X2. WILL CONTINUE TO MONITOR.
[2019-05-07] MEDS: NACL 0.9% 1,000 ML IV SCH (03:49)
--- NOTE | 2019-05-07 04:00 | NUR ---
SUCTIONED ETT WITH SCANT WHITE SECRETIONS NOTED. BED BATH PROVIDED. HORACIO CARE PROVIDED. FLACC 0. REPOSITIONED. HOB 30 DEGREES. BED LOW AND LOCKED. WILL CONTINUE TO MONITOR.
[2019-05-07] MEDS: methylPREDNISolone SS 125 MG/2 ML VIAL IVP SCH ×2 (04:30→13:16)
[2019-05-07] MEDS: CLINDAMYCIN 600 MG in DEXTROSE 5% 50 ML IV SCH ×3 (04:31→20:19)
[2019-05-07 06:10] LABS: HEMATOCRIT 24.7 % (36-48); HEMOGLOBIN 7.6 g/dL (12.0-16.0); MEAN CORPUSCULAR HEMOGLOBIN 24 pg (27-31); MEAN CORPUSCULAR HGB CONC 31 g/dL (33-37); MEAN CORPUSCULAR VOLUME 77.6 fL (80-94); PLATELET COUNT (AUTO) 250 K/uL (140-450); RED BLOOD CELL COUNT(AUTO) 3.18 MIL/uL (4.20-5.40); RED CELL DISTRIBUTION WIDTH 18.3 % (11.6-13.7); WHITE BLOOD COUNT (AUTO) 17.2 K/uL (4.8-10.8)
[2019-05-07 06:14] LABS: ANION GAP 9.1 (8-16); CARBON DIOXIDE 34.8 mmol/L (21-32); CREATININE 0.8 mg/dL (0.6-1.3); POTASSIUM 4.9 mmol/L (3.5-5.1)
[2019-05-07 06:20] LABS: MAGNESIUM 2.4 mg/dL (1.8-2.4); PHOSPHORUS 3.4 mg/dL (2.5-4.9)
[2019-05-07] MEDS: BLOOD GLUCOSE MONITORING 1 DEV DEV FS SCH ×4 (06:52→20:36)
[2019-05-07] MEDS: INSULIN LISPRO SLIDING SCALE 100 UNITS/ML VIAL SUBQ PRN ×4 (06:59→20:16)
[2019-05-07] MEDS: BUDESONIDE 0.5 MG/2 ML NEBU INH SCH ×2 (07:00→19:16)
[2019-05-07] MEDS: ALBUTEROL SULFATE/IPRATROPIU 3 ML SOL IH SCH ×3 (07:00→19:15)
[2019-05-07 07:19] LABS: LYMPHOCYTES % (MANUAL) 3 % (20-46); MONOCYTES % (MANUAL) 5 % (5-12)
--- NOTE | 2019-05-07 07:30 | NUR ---
RECEIVED BEDSIDE REPORT AND TOOK OVER CARE OF PT FROM NIGHTSHIFT NURSE. ASSESSMENT REVEALED EYES ARE PERRL. ETT SIZED 7.5 WAS SECURED, MARKED ON 26 AT LIPLINE. PT IS ETT TO VENT. LUNG SOUNDS CLEAR THROUGHOUT ALL LOBES. VENT SETTINGS ARE A/CVC FIO2 30% VT 450, RATE 16, FLOW 40, PEEP 7, PMAX 40. OG TUBE WAS SECURED W/ 5-10 RESIDUAL. DAISY PICC LINE WAS SECURED W/ CLEAN DRESSING, NO REDNESS, NO SIGNS OF INFECTION. DRY WEIGHT IS 68 KG. PROPOFOL WAS RUNNING VIA PICC AT 45 MCG/KG/MIN TO KEEP PT AT RASS -2 PER MD ORDERS. NS WAS ALSO RUNNING AT 50ML/HR. CONTINUOUS FEEDING VIA OG TUBE WAS NOTED AT 70 ML/HR W/ FWF 100 ML Q4HR. PT HAS WOUND OF THE RLL THAT WAS DRESSED. URIOSTEGUI CATHETER NOTED W/ NO REDNESS/SIGNS OF INFECTION. YELLOW URINE IS NOTED IN THE URIOSTEGUI CATHETER TUBE W/ NO SEDIMATE. PT IS HAS SOFT WRIST RESTRAINTS APPLIED. PT HAS NORMAL BILATERAL RADIAL PULSES W/ GOOD CAPILLARY REFILLS W/ SKIN INTACT. DVT PROPHYLAXIS APPLIED TO BOTH LEGS.
--- NOTE | 2019-05-07 08:00 | NUR ---
SMALL AMOUNT OF BROWN PASTY STOOLS WERE FOUND. PERICARE WAS INITIATED. CHANGE OF LINENS WERE PROVIDED. PT WAS REPOSITIONED. INITIATED ORAL CARE.
--- NOTE | 2019-05-07 08:30 | NUR ---
ASSESSED GASTRIC RESIDUAL. 5-10 ML NOTED.
[2019-05-07] MEDS: ASCORBIC ACID 500 MG/5 ML ORASYR GT SCH (08:34)
[2019-05-07] MEDS: PANTOPRAZOLE 40 MG INJ VIAL IVP SCH (08:34)
[2019-05-07] MEDS: LACTOBACILLUS RHAMNOSUS GG 1 EACH CAP PO SCH (08:35)
[2019-05-07] MEDS: FUROSEMIDE 40 MG/4 ML VIAL IVP SCH ×3 (08:35→17:14)
[2019-05-07] MEDS: FERROUS SULFATE 300 MG/5 ML UDC NG SCH (08:35)
[2019-05-07] MEDS: LEVOFLOXACIN 500 MG/D5W PREMIX 100 ML IV SCH (08:36)
[2019-05-07] MEDS: amLODIPine 5 MG TAB PO SCH (08:36)
[2019-05-07] MEDS: LOSARTAN 25 MG TAB PO SCH (08:36)
[2019-05-07] MEDS: POTASSIUM CHLORIDE 20% 40 MEQ/15 ML UDC PO SCH (09:00)
--- NOTE | 2019-05-07 09:00 | NUR ---
POTASSIUM WAS HELD DUE TO LEVEL BEING 4.9. WAS NOTIFIED Addendum: 05/07/19 at 1843 by Ryley Cheng RN RN DOCTOR ANDRADE WAS NOTIFIED
[2019-05-07] MEDS: ASPIRIN 81 MG TAB.CHEW PO SCH (09:53)
[2019-05-07] MEDS: SODIUM FERRIC GLUCONATE 125 MG in NACL 0.9% 100 ML IV SCH (10:42)
--- NOTE | 2019-05-07 11:00 | NUR ---
SMALL AMOUNT OF PASTY BROWNISH STOOLS WAS NOTED. ZGUARD WAS APPLIED AFTER BM.
[2019-05-07] MEDS: SKINTEGRITY HYDROGEL TP SCH (13:00)
--- NOTE | 2019-05-07 13:10 | NUR ---
DR POWELL SAW PT, TALKED TO FAMILY ABOUT POC, ORDERED FENTANYL AND VERSED DRIP WELL WEANING PT OFF OF PROPOFOL DRIP.
--- NOTE | 2019-05-07 13:12 | NUR ---
DR POWELL PLACED PT ON CPAP 5 PS 15 5M INUTES PTS RATE INCREASED RETURNED T A/C BY DR POWELL
[2019-05-07] MEDS ORDERED: PROPOFOL 1000 MG/100 ML PREMIX 100 ML IV PRN (13:20)
[2019-05-07] MEDS ORDERED: fentaNYL 1 MG in NACL 0.9% 80 ML IV PRN (13:40)
[2019-05-07] MEDS ORDERED: MIDAZOLAM MDV 50 MG in NACL 0.9% 40 ML IV PRN (13:40)
[2019-05-07] MEDS: MIDAZOLAM MDV 100 MG in NACL 0.9% 80 ML IV PRN (13:50)
--- NOTE | 2019-05-07 14:15 | NUR ---
dr. gerardo here. gave an order to wrap rt leg wound with emre bandage after wound care
[2019-05-07] MEDS: fentaNYL 1 MG in NACL 0.9% 80 ML IV PRN ×2 (14:56→22:26)
--- NOTE | 2019-05-07 16:26 | NUR ---
05/07/19 FOLLOW UP COMPLETED PLEASE REFER TO NUTRITION ASSESSMENT UNDER CARE ACTIVITY FOR ESTIMATED NUTRITIONAL NEEDS. 1. CONTINUE TUBE FEEDING GLUCERNA @70MLS/HR. -TF PROVIDES 2016KCALS, 100G PROTEIN, AND 1352MLS WATER; SUFFICIENT TO MEET 100% OF PATIENT'S DAILY ESTIMATED NUTRITIONAL NEEDS. 2. CONTINUE VITAMIN C SUPPLEMENTATION FOR WOUND HEALING. 3. F/U 2-3 DAYS; HIGH RISK REVIEWED BY RANDOLPH PEREZ RD
--- NOTE | 2019-05-07 16:30 | NUR ---
SMEAR AMOUNT OF PASTY BROWNISH STOOL WAS NOTED. ZGUARD WAS APPLIED AFTER PERIANAL CARE.
--- NOTE | 2019-05-07 19:24 | NUR ---
RECEIVED PT FROM DAY SHIFT ON AC VC 16,450,+5,30%. VENT PLUGGED INTO RED OUTLET. BMV AT LEFT HEAD OF BED. ALARMS AUDIBLE AND WORKING. ETT SECURED AT 7.5 @22 AT THE [facility] WITH AN ANCHORFAST. PT REMAINS SEDATED. WILL CONT TO MONITOR.
--- NOTE | 2019-05-07 19:30 | NUR ---
RECEIVED REPORT FROM RIKY GOSS. PT RESTING IN BED, AROUSABLE TO NAME. PERRL. ETT TO VENT WITH SETTINGS FOLLOWS: AC/VC: TV 450, RR16, PEEP 5, FI02 30% SPO2 97%. DRY WEIGHT 68KG, FENTANYL INFUSING @ 13.6 ML/HR, VERSED INFUSING @ 5MG/HR. 0.9% NS AT 50ML/HR TO MAINTAIN RASS -1 PER MD ORDERS. LUNGS CLEAR THROUGHOUT. OGT +PLACEMENT VERIFIED VIA AIR BOLUS. 20CC RESIDUAL. GLUCERNA 1.2 RUNNING AT 70CC/HR, FWF 100CC Q4. INDWELLING URINARY CATH PATENT DRAINING CLEAR, YELLOW URINE TO GRAVITY. WOUND TO RT LAT LOWER LEG COVERED WITH CLEAN DRY DRESSING, CHANGED IN AM PER DAY SHIFT. REMAINS ON SOFT WRIST RESTRAINTS D/T ATTEMPTING TO PULL ETT. SOME SCATTERED ECCHYMOSIS NOTED TO BUE. CIRCULATION WNL. HOB ELEVATED 30 DEGREES, SAFETY PRECAUTIONS REMAIN IN PLACE. BED LOW AND LOCKED WITH SIDE RAILS UP X2. WILL CONTINUE TO MONITOR.
[2019-05-07] MEDS: INSULIN LANTUS 100 UNITS/ML 10 ML VIAL SUBQ SCH (20:16)
[2019-05-07] MEDS: ATORVASTATIN 80 MG TAB PO SCH (20:18)
[2019-05-07] MEDS: methylPREDNISolone SS 40 MG/ML VIAL IVP SCH (20:18)
--- NOTE | 2019-05-07 21:00 | NUR ---
RBS CHECKED= 302. LANTUS AND LISPRO ADMINISTERED ORDERED. ALL DUE MEDS GIVEN. NO ADR NOTED. BED LOW AND LOCKED WITH HOB AT 30 DEGREES. WILL CONTINUE TO MONITOR.
--- NOTE | 2019-05-07 23:00 | NUR ---
BED BATH GIVEN. REPOSITIONED WITH PRESSURE AREAS OFFLOADED. ORAL CARE PROVIDED. TRACH SUCTIONED WITH SCANT HARKINS SECRETIONS NOTED. BED LOW AND LOCKED. CALL LIGHT WITHIN REACH. WILL CONT TO MONITOR.
[2019-05-08] VITALS (104 sets, daily range): BP systolic 88–175; BP diastolic 46–117
--- NOTE | 2019-05-08 01:00 | NUR ---
VAP ORAL CARE PROVIDED. REPOSITIONED. NO SOB OR ACUTE DISTRESS AT THIS TIME. SAFETY PRECAUTIONS REMAIN IN PLACE WITH BED LOW AND LOCKED. WILL CONTINUE TO MONITOR.
[2019-05-08] MEDS: HYDRAGUARD CREAM TP SCH ×2 (01:16→13:00)
[2019-05-08] MEDS: Z-GUARD PASTE TP SCH ×2 (01:16→13:00)
--- NOTE | 2019-05-08 04:45 | NUR ---
pt remains on documented settings. vent plugged into red outlet. bmv at head of bed. alarms audible and working. ett 7.5@ 22 gum secured with an anchorfast. pt in no distress.
[2019-05-08] MEDS: MIDAZOLAM MDV 100 MG in NACL 0.9% 80 ML IV PRN ×2 (05:24→22:29)
[2019-05-08] MEDS: methylPREDNISolone SS 40 MG/ML VIAL IVP SCH ×3 (05:25→20:58)
[2019-05-08] MEDS: CLINDAMYCIN 600 MG in DEXTROSE 5% 50 ML IV SCH ×3 (05:25→20:58)
[2019-05-08 06:17] LABS: BASOPHILS % (AUTO) 0.2 % (0.0-2.0); HEMATOCRIT 25.1 % (36-48); HEMOGLOBIN 7.8 g/dL (12.0-16.0); LYMPHOCYTES # (AUTO) 0.5 K/uL (2.5-16.5); LYMPHOCYTES % (AUTO) 2.3 % (20.5-51.1); MEAN CORPUSCULAR HEMOGLOBIN 24 pg (27-31); MEAN CORPUSCULAR HGB CONC 31 g/dL (33-37); MEAN CORPUSCULAR VOLUME 77.7 fL (80-94); MONOCYTES % (AUTO) 5.3 % (1.7-9.3); NEUTROPHILS # (AUTO) 17.8 K/uL (1.8-7.7); NEUTROPHILS % (AUTO) 92.2 % (42.2-75.2); PLATELET COUNT (AUTO) 273 K/uL (140-450); RED BLOOD CELL COUNT(AUTO) 3.23 MIL/uL (4.20-5.40); RED CELL DISTRIBUTION WIDTH 17.7 % (11.6-13.7); WHITE BLOOD COUNT (AUTO) 19.4 K/uL (4.8-10.8)
[2019-05-08 06:35] LABS: ANION GAP 8.1 (8-16); CARBON DIOXIDE 36.2 mmol/L (21-32); CREATININE 0.9 mg/dL (0.6-1.3); POTASSIUM 4.3 mmol/L (3.5-5.1)
--- NOTE | 2019-05-08 07:00 | NUR ---
RECIVED PT ON VENT WITH SETTINGS CHARTED BREATH SOUNDS PRESENT BILAT SXN PT WITH MON TO MOD AMT OFF WHITE SECS ETT SECURE AMBU BAG AT BEDSIDE VENT PLUGGED INTO RED OUTLET
[2019-05-08] MEDS: BUDESONIDE 0.5 MG/2 ML NEBU INH SCH ×2 (07:02→19:40)
[2019-05-08] MEDS: ALBUTEROL SULFATE/IPRATROPIU 3 ML SOL IH SCH ×3 (07:02→19:40)
[2019-05-08] MEDS: INSULIN LISPRO SLIDING SCALE 100 UNITS/ML VIAL SUBQ PRN ×2 (07:22→12:51)
[2019-05-08] MEDS: BLOOD GLUCOSE MONITORING 1 DEV DEV FS SCH ×4 (07:30→20:58)
--- NOTE | 2019-05-08 07:30 | NUR ---
BEDSIDE REPORT RECEIVED FROM MATERIAL HANDLER FLOORPERSON NURSE, PT ON SEDATION RASS -1 WITH FENTANYL 102MG/HR (10.2ML/HR) AND VERSED 5MG/HR (5ML/HR), ETT TO VENT, ACVC, FIO2 30%, VT 450, RR 16, PEEP 5, VITALS STABLE ON MONITOR, DAISY PICC IN PLACE, NS AT 50ML/HR, BILAT UPPER EX EDEMATOUS, R LOWER ARM WITH REDNESS AND WEEPING, DR LYNN AT BEDSIDE MADE AWARE, ARMS ELEVATED ON PILLOWS PER DR LYNN, OG FEEDING ONGOING GLUCERNA AT 70ML/HR, ABD SOFT NON DISTENDED, BILAT SOFT WRIST RESTRAINS ON, NO S/S INJURY NOTED, PT ATTEMPTS TO GRAB AND PULL ON TUBINGS, URIOSTEGUI CATH IN PLACE, DRAINING TO GRAVITY, ALL SAFETY MEASURES IN PLACE, POC REVIEWED, WILL CONTINUE TO MONITOR.
[2019-05-08] MEDS: PANTOPRAZOLE 40 MG INJ VIAL IVP SCH (08:43)
[2019-05-08] MEDS: LACTOBACILLUS RHAMNOSUS GG 1 EACH CAP PO SCH (08:43)
[2019-05-08] MEDS: amLODIPine 5 MG TAB PO SCH ×2 (08:43→09:00)
[2019-05-08] MEDS: ASCORBIC ACID 500 MG/5 ML ORASYR GT SCH (08:43)
[2019-05-08] MEDS: LOSARTAN 25 MG TAB PO SCH ×2 (08:43→09:00)
[2019-05-08] MEDS: FERROUS SULFATE 300 MG/5 ML UDC NG SCH (08:43)
[2019-05-08] MEDS: LEVOFLOXACIN 500 MG/D5W PREMIX 100 ML IV SCH (08:43)
[2019-05-08] MEDS: FUROSEMIDE 40 MG/4 ML VIAL IVP SCH ×3 (08:44→17:04)
[2019-05-08] MEDS: ASPIRIN 81 MG TAB.CHEW PO SCH (08:44)
--- NOTE | 2019-05-08 08:50 | NUR ---
PT'S BLOOD PRESSURE 107/55, K 4.3. PER RESIDENT PHYSICIAN DR. ANDRADE, HOLD SCHEDULED BLOOD PRESSURE MEDS AND KCL AT THIS TIME.
[2019-05-08] MEDS: POTASSIUM CHLORIDE 20% 40 MEQ/15 ML UDC PO SCH (09:00)
[2019-05-08] MEDS: fentaNYL 1 MG in NACL 0.9% 80 ML IV PRN ×2 (09:40→22:34)
--- NOTE | 2019-05-08 10:50 | NUR ---
fentanyl and versed put on hold for now for sedation vacation for SBT, BILL RT AWARE
--- NOTE | 2019-05-08 11:30 | NUR ---
pt placed on cpap for weaning trial, pt anxious unable to handle cpap at this time. placed back on ac rn is aware.
--- NOTE | 2019-05-08 11:50 | NUR ---
PT UNABLE TO SUSAN SBT, PLACED BACK ON AC VC, PT RESTLESS, ATTEMPTING TO SIT UP, AND REACH FOR ETT WITH HANDS, PT PLACED BACK ON FENT AT 102MCG/HR, VERSED 5MG/HR.
[2019-05-08] MEDS: SKINTEGRITY HYDROGEL TP SCH (13:00)
--- NOTE | 2019-05-08 13:45 | NUR ---
DR PRINCE AT BEDSIDE, DISCUSSING POC WITH DAUGHTER.
[2019-05-08] MEDS: NACL 0.9% 1,000 ML IV SCH (14:04)
--- NOTE | 2019-05-08 18:30 | NUR ---
MOTHER AND SISTER AT BEDSIDE, PT RESTLESS, AGITATED, TRYING TO SIT UP AND ATTEMPTS TO GRAB TUBINGS, HR 130'S, BP INCREASED, WILL GIVE PRN ATIVAN.
[2019-05-08] MEDS: LORazepam 2 MG/ML VIAL IVP PRN (18:40)
--- NOTE | 2019-05-08 19:25 | NUR ---
BEDSIDE REPORT TO CONTINUITY EDITOR NURSE.
--- NOTE | 2019-05-08 19:27 | NUR ---
RECEIVED REPORT FROM DAYSHIFT NURSE AT PATIENTS BEDSIDE. PATIENT HAS EYES CLOSED, DOES NOT RESPOND TO NAME/VOICE. ONLY WITHDRAWS TO LIGHT PAIN. PATIENT IS SEDATED. RASS -3. PERRL, 3 MM, BRISK. ETT TO VENT, ACVC 30% FI02, TV- 450, RATE 16- PEEP 5. RESPIRATORY THERAPIST AT BEDSIDE FOR BREATHING TREATMENT, DECREASED FI02 TO 24%. LUNG SOUNDS CLEAR ALL THROUGHOUT, BREATHING IS EVEN AND UNLABORED. S1S2 HEARD, SINUS RHYTHM ON MONITOR. UPPER EXTREMITIES EDEMATOUS, PITTING, 2+. OGT IN PLACE, AIR CHECK/ AUSCULTATION CONFIRMED. RESIDUALS 5ML. OGT TO FEEDING, GLUCERNA 1.2 @ 70ML/HR. FWF 100ML Q4H. RIGHT UPPER ARM PICC IN PLACE, INFUSING VERSED 5 MG/HR ( 5 ML/HR) AND FENTANYL- 1.5 MCG/KG/HR ( 10.2 ML/HR) DRY WEIGHT RECORDED AT 68 KG. RASS SCORE -1. IV FLUIDS MAINTENANCE NS @ 50ML/HR. ALL LUMENS FLUSHED AND PATENT WITHOUT SYMPTOMS. ABDOMEN IS SOFT AND NONTENDER WITH ACTIVE BOWEL SOUNDS. URIOSTEGUI CATHETER IN PLACE WITH CLEAR YELLOW URINE NOTED. SKIN IS WARM AND DRY, AXILLARY TEMP-98.7. SKIN IS NOT INTACT, RIGHT LOWER LATERAL LEG HAS MEDIUM SIZED OPEN WOUND. DRESSING IS DRY AND INTACT, WITH ADAPTIC, GAUZE AND WITH CHAI WRAP. BILATERAL SOFT WRIST RESTRAINTS IN PLACE. NO SIGNS OF INJURY. REINFORCED RESTRAINTS WITH QUICK RELEASE KNOTS. HOB 30 DEGREES, SAFETY ALARMS IN PLACE, BED LOCKED AND IN LOWEST POSITION. WILL CONTINUE TO MONITOR.
--- NOTE | 2019-05-08 20:05 | NUR ---
STOPPED FEEDING AND REMOVED RESTRAINTS TO TURN AND REPOSITION PATIENT. EDEMATOUS TO BILATERAL UPPER EXTREMITIES, SMALL AMOUNT OF SEEPAGE/FLUIDS FROM UPPER EXTREMITIES. OFFLOADED PRESSURE SITES. HOB 30 DEGREES. SAFETY ALARMS IN PLACE. PROVIDED VAP ORAL CARE.
[2019-05-08] MEDS: ATORVASTATIN 80 MG TAB PO SCH (20:58)
[2019-05-08] MEDS: INSULIN LANTUS 100 UNITS/ML 10 ML VIAL SUBQ SCH (21:01)
--- NOTE | 2019-05-08 21:10 | NUR ---
PATIENTS MOTHER AND SISTER AT BEDSIDE. UPDATED FAMILY ON PATIENTS CONDITION AND PLAN OF CARE, VERBALIZES UNDERSTANDING. EXPLAINED THE NEED FOR RESTRAINTS. SCHEDULED MEDICATIONS ADMINISTERED. STOPPED FEEDING, CHECKED RESIDUALS, 5ML, AIR CHECK CONFIRMED. RESUMED FEEDING. ACCUCHECK- 213, SCHEDULED LANTUS GIVEN. FLACC 0.
--- NOTE | 2019-05-08 21:21 | NUR ---
RCV'D PT INTUBATED WITH 7.5 ETT AT 22 CM. ETT IS IN PLACE AND SECURED. SETTINGS CHARTED. VENT CONNECTED TO RED OUTLET. ALARMS AUDIBLE. NO SOB OR DISTRESS NOTED. PT IS QUIET. HHN TX WITH NO ADVERSE REACTION. WILL CONTINUE TO MONITOR. DECREASED FIO2 TO 24%. SPO2 96%.
--- NOTE | 2019-05-08 23:00 | NUR ---
DR. HUSTON IN TO ASSESS PATIENT, NO NEW ORDERS AT THIS TIME.
[2019-05-09] VITALS (98 sets, daily range): BP systolic 85–193; BP diastolic 35–108
[2019-05-09] MEDS: Z-GUARD PASTE TP SCH ×2 (01:00→13:00)
--- NOTE | 2019-05-09 01:15 | NUR ---
PATIENT RESTING WELL, REMOVED RESTRAINTS TO ASSESS SKIN AND CIRCULATION-WITHIN NORMAL LIMITS. PATIENT WITHDRAWS TO LIGHT PAIN. TURNED AND REPOSITIONED. FLACC 0
[2019-05-09] MEDS: NACL 0.9% 1,000 ML IV SCH (02:01)
[2019-05-09] MEDS: MIDAZOLAM MDV 100 MG in NACL 0.9% 80 ML IV PRN ×2 (02:28→22:02)
[2019-05-09] MEDS: HYDRAGUARD CREAM TP SCH ×2 (02:29→14:02)
--- NOTE | 2019-05-09 03:00 | NUR ---
NO CHANGES IN CONDITION. BREATHING IS EVEN AND UNLABORED. ALL OTHER VITALS WITHIN NORMAL LIMITS. ALL NEEDS MET AT THIS TIME.
--- NOTE | 2019-05-09 04:40 | NUR ---
SPONGE BATH, VAP ORAL CARE AND PERINEAL CARE PROVIDED. PATIENT ABLE TO FOLLOW SOME COMMANDS, ASSISTS WITH REPOSITIONING. PATIENT VERY AGITATED WHEN AROUSED. REMOVED RESTRAINTS, NO SIGNS OF INJURIES. RESTRAINTS CANNOT BE D/C'd AT THIS TIME, PATIENT KEEPS ATTEMPTING TO PULL OUT ETT DESPITE REORIENTATION. PATIENT OPENS EYES WHEN AROUSED, CANNOT MAKE NEEDS KNOWN, VERY STRONG AT BUE AND BLE. VERSED ON AT 5MG/HR-5ML/HR, AND FENTANYL- 2.0 MCG/KG/MIN- 13.6 ML/HR IV FLUIDS NS @ 50ML. HOB 30 DEGREES, SAFETY ALARMS IN PLACE.
[2019-05-09] MEDS: CLINDAMYCIN 600 MG in DEXTROSE 5% 50 ML IV SCH ×3 (05:35→21:39)
[2019-05-09] MEDS: methylPREDNISolone SS 40 MG/ML VIAL IVP SCH ×3 (05:35→21:39)
--- NOTE | 2019-05-09 06:40 | NUR ---
DR LYNN IN TO ASSESS PATIENT, DECREASED FENTANYL TO 1 MCG/KG/HOUR TO KEEP RASS SCORE -1. WILL ENDORSE TO A.M NURSE. YAYA 204- GAVE 4 UNITS HUMALOG PER SLIDING SCALE.
[2019-05-09 06:46] LABS: BASOPHILS % (AUTO) 0.1 % (0.0-2.0); HEMATOCRIT 24.4 % (36-48); HEMOGLOBIN 7.5 g/dL (12.0-16.0); LYMPHOCYTES # (AUTO) 0.4 K/uL (2.5-16.5); LYMPHOCYTES % (AUTO) 2.4 % (20.5-51.1); MEAN CORPUSCULAR HEMOGLOBIN 24 pg (27-31); MEAN CORPUSCULAR HGB CONC 31 g/dL (33-37); MEAN CORPUSCULAR VOLUME 77.2 fL (80-94); MONOCYTES # (AUTO) 0.9 K/uL (0.8-1.0); MONOCYTES % (AUTO) 4.8 % (1.7-9.3); NEUTROPHILS % (AUTO) 92.7 % (42.2-75.2); PLATELET COUNT (AUTO) 258 K/uL (140-450); RED BLOOD CELL COUNT(AUTO) 3.16 MIL/uL (4.20-5.40); WHITE BLOOD COUNT (AUTO) 18.3 K/uL (4.8-10.8)
[2019-05-09] MEDS: INSULIN LISPRO SLIDING SCALE 100 UNITS/ML VIAL SUBQ PRN ×2 (07:21→12:45)
[2019-05-09] MEDS: BLOOD GLUCOSE MONITORING 1 DEV DEV FS SCH ×4 (07:30→21:38)
[2019-05-09 07:41] LABS: ANION GAP 8.4 (8-16); CARBON DIOXIDE 34.5 mmol/L (21-32); CREATININE 0.8 mg/dL (0.6-1.3); POTASSIUM 3.9 mmol/L (3.5-5.1)
[2019-05-09] MEDS: ALBUTEROL SULFATE/IPRATROPIU 3 ML SOL IH SCH ×3 (07:58→19:36)
[2019-05-09] MEDS: BUDESONIDE 0.5 MG/2 ML NEBU INH SCH ×2 (07:59→19:36)
--- NOTE | 2019-05-09 08:00 | NUR ---
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 THE PT IS SEDATED WITH VERSED AND FENTANYL AT THIS TIME. THE FENTANYL IS DOWN TO 1 MCG FOR WEANING. WHEN THE PT WAKES SHE TRASHES ABOUT WILDLY IN THE BED. HER PUPILS ARE BRISKLY REACTIVE. SHE LOCALIZES TO TOUCH. SHE HAS ON RESTRAINTS. SHE IS SR ON THE MONITOR WHILE NOT TRASHING. BP ARE WDL. SHE IS ON OG TUBE FEEDING. BOWEL SOUNDS ARE ACTIVE. URIOSTEGUI IS DRAINING GOOD OUTPUT. SHE HAS VARIOUS SKIN ISSUES INCLUDING A DEBRIDED WOUND ON THE RLE-LATERAL AND LUE SKIN TEAR. STABLE AT THIS TIME.
--- NOTE | 2019-05-09 09:10 | NUR ---
placed pt on cpap peep of 5 ps 10 pt unable to osvaldo high carmona rate put back to ac with settings as charted rn aware
[2019-05-09] MEDS: fentaNYL 1 MG in NACL 0.9% 80 ML IV PRN ×2 (09:27→22:01)
--- NOTE | 2019-05-09 09:30 | NUR ---
WE DID TRY TO WEAN THE PT A LITTLE EARLIER. HOWEVER THE PT BECAME TACHYCARDIC AND THE SO2 BECAME MARGINAL. WE CALLED THE HOT IRON WORKER AND PUT THE PT BACK ON AC. SHE WENT BACK INTO SR. NORMAL SO2.
[2019-05-09] MEDS: ASPIRIN 81 MG TAB.CHEW PO SCH (09:33)
[2019-05-09] MEDS: LOSARTAN 25 MG TAB PO SCH (09:33)
[2019-05-09] MEDS: ASCORBIC ACID 500 MG/5 ML ORASYR GT SCH (09:34)
[2019-05-09] MEDS: FERROUS SULFATE 300 MG/5 ML UDC NG SCH (09:34)
[2019-05-09] MEDS: amLODIPine 5 MG TAB PO SCH (09:34)
[2019-05-09] MEDS: FUROSEMIDE 40 MG/4 ML VIAL IVP SCH ×3 (09:35→17:05)
[2019-05-09] MEDS: PANTOPRAZOLE 40 MG INJ VIAL IVP SCH (09:35)
[2019-05-09] MEDS: POTASSIUM CHLORIDE 20% 40 MEQ/15 ML UDC PO SCH (09:35)
[2019-05-09] MEDS: LACTOBACILLUS RHAMNOSUS GG 1 EACH CAP PO SCH (09:37)
[2019-05-09] MEDS: LEVOFLOXACIN 500 MG/D5W PREMIX 100 ML IV SCH (09:37)
--- NOTE | 2019-05-09 11:30 | NUR ---
PT. SLEEPING QUIETLY , FAMILY THE MOTHER AND SISTER AT BEDSIDE.
[2019-05-09] MEDS: SKINTEGRITY HYDROGEL TP SCH (13:00)
--- NOTE | 2019-05-09 13:00 | NUR ---
hhn not given eleavated heart rate
--- NOTE | 2019-05-09 13:15 | NUR ---
RECEIVED REPORT FROM CHRIS LAN. ETT TO VENT TV 450, FI02 40%, AC 16/MIN, PEEP 5. 02 SAT 99%. GLUCERNA 1.2 AT 70 ML/HR WITH 100 ML H20 FLUSHES Q 4HRS. ON FENTANYL DRIP AT 1 MCG/KG/HR AND VERSED DRIP AT 5 MG/HR. DAISY PICC LINE INTACT AND PATENT. UPPER EXT. WITH ECCHYMOTIC AREAS. WOUND ON RT LEG. URIOSTEGUI CATH INTACT AND PATENT DRAINING TO CLEAR YELLOWISH URINE.
--- NOTE | 2019-05-09 14:00 | NUR ---
PT BECOMES RESTLESS AT TIMES TRIES TO REACH FOR ETT. CALMS DOWN AFTER A FEW MINUTES. SOFT WRIST RESTRAINTS ON BILATERALLY.
--- NOTE | 2019-05-09 15:15 | NUR ---
DR. POWELL HERE TO SEE AND EXAMINE PT. SPOKE TO PT'S MOTHER AND AUNT.
--- NOTE | 2019-05-09 16:00 | NUR ---
OGT RESIDUAL 10 ML.
--- NOTE | 2019-05-09 18:00 | NUR ---
RASS -1. FENTANYL AT 1.5 MCG/KG/HR. VERSED AT 5 MG/HR. NO RESP DISTRESS NOTED.
--- NOTE | 2019-05-09 18:04 | NUR ---
CONTINUED TO MONITOR PT ON VENT WITH SETTINGS CHARTED BREATH SOUNDS PRESENT BILAT SXN PT WITH MIN AMT OF WHITE SECS AMBU BAG AT BEDSIDE VENT PLUGGED INTO RED OUTLET
--- NOTE | 2019-05-09 19:05 | NUR ---
REPORT GIVEN TO LESLY LAN.
--- NOTE | 2019-05-09 19:10 | NUR ---
RECEIVED REPORT FROM [facility] NURSE. PATIENT RESTLESS IN BED, EYES OPEN, CANNOT MAKE NEEDS KNOWN, PATIENT KEEPS THRASHING AROUND IN BED, ATTEMPTING TO PULL OUT ETT. RN ENCOURAGED COOPERATION. ETT TO VENT ACVC 16 FI02 40% TV 450 PEEP 5, LUNG SOUNDS ARE CLEAR. SATURATIONS 100%. BREATHING IS EVEN AND UNLABORED, NO SIGNS OF COUGH OR CONGESTION. S1S2, SINUS TACH ON MONITOR, HEART RATE 125 BPM. BLOOD PRESSURE 125/61. RIGHT UPPER ARM PICC LINE IN PLACE. NORMAL SALINE @ 50ML/HR. INFUSING VERSED AT 5MG/HR-(5ML/HR) AND FENTANYL 1.5 MCG/KG/HOUR (10 .2 ML/HR). DRY WEIGHT 68KG AND RASS -1. PATIENT OPENS EYES TO LIGHT PAIN. OGT IN PLACE, CONNECTED TO TUBE FEEDING GLUCERNA 1.2 @ 70ML/HR. ABDOMEN IS SOFT AND NONTENDER, ACTIVE BOWEL SOUNDS. URIOSTEGUI CATHETER IN PLACE WITH CLEAR YELLOW URINE NOTED. SKIN IS WARM AND DRY, AFEBRILE-97.7, PITTING EDEMA 1+ TO BILATERAL UPPER EXTREMITIES. SOME BRUISING NOTED AT UPPER EXTREMITIES, VERSATEL DRESSING AT LEFT EXTREMITY. RIGHT LOWER LATERAL LEG HAS OPEN WOUND. DRESSING DRY AND INTACT, WRAPPED WITH CHAI ROLL. BILATERAL SOFT WRIST RESTRAINTS IN PLACE, SKIN INTACT AND CIRCULATION HAS GOOD PERFUSION, CAP REFILL <3 SECONDS. RESTRAINTS SECURED WITH QUICK RELEASE KNOTS. PATIENT ABLE TO MOVE ALL EXTREMITIES. HOB 30 DEGREES, SIDERAILS UP x3, BED LOCKED AND IN LOWEST POSITION. WILL CONTINUE TO MONITOR.
--- NOTE | 2019-05-09 20:05 | NUR ---
PATIENT HAVING BREATHING TREATMENT, RT DECREASED FI02 24%, SATURATIONS > 96%.
--- NOTE | 2019-05-09 21:10 | NUR ---
AIR CHECK AND AUSCULTATION CONFIRMED. POSITIVE AIR CHECK. RESIDUALS 5ML. SCHEDULED MEDICATIONS GIVEN. ACCUCHECK 203, SCHEDULED LANTUS GIVEN. PATIENTS SISTER AND MOTHER AT BEDSIDE. UPDATED ON CARE PLAN.
[2019-05-09] MEDS: ATORVASTATIN 80 MG TAB PO SCH (21:39)
[2019-05-09] MEDS: INSULIN LANTUS 100 UNITS/ML 10 ML VIAL SUBQ SCH (21:41)
--- NOTE | 2019-05-09 23:36 | NUR ---
ORAL CARE PROVIDED. PATIENT TURNED AND REPOSITIONED. PATIENT IS VERY RESTLESS, AND BLOOD PRESSURE KEEPS FLUCTUATING FROM HIGH TO LOW. CONTINUED ON VERSED DRIP AT 5MG/HR-5ML/HR, AND FENTANYL 2 MCG/KG/HOUR. RASS -1. PATIENT REORIENTED AND EDUCATED ON MECHANICAL VENTILATOR. EYES ARE OPEN, ABLE TO SQUEEZE HANDS. BILATERAL SOFT WRIST RESTRAINTS IN PLACE. WILL CONTINUE TO MONITOR.
[2019-05-10] VITALS (105 sets, daily range): BP systolic 80–181; BP diastolic 45–108
[2019-05-10] MEDS: Z-GUARD PASTE TP SCH ×2 (01:00→12:25)
--- NOTE | 2019-05-10 01:15 | NUR ---
PATIENT RESTING WELL, EYES CLOSED, OPENS EYES WHEN STIMULATED AND PATIENT GETS AGITATED, HEART RATE INCREASED AND BLOOD PRESSURE INCREASES. REMOVED RESTRAINTS TO ASSESS SKIN, SOME WEEPING NOTED AT BILATERAL UPPER EXTREMITIES, CHANGED PILLOW CASES AND PROVIDED SKIN CARE. REAPPLIED RESTRAINTS, PATIENT CONTINUES TO DISRUPT MEDICAL CARE. REORIENT PATIENT. HOB 30 DEGREES, SIDERAILS UPx3.
[2019-05-10] MEDS: HYDRAGUARD CREAM TP SCH ×2 (03:31→12:25)
[2019-05-10] MEDS: NACL 0.9% 1,000 ML IV SCH (03:32)
--- NOTE | 2019-05-10 04:00 | NUR ---
WAS PROVIDING PATIENT WITH ORAL CARE, PATIENT VERY AGITATED WHEN AROUSED, PATIENT MOVING AROUND AND SHAKING HEAD BACK AND FORTH, WHEN CLEANING MOUTH, PATIENT JERKED HEAD AND TOOTHBRUSH PUNCTURED LIP, A LOT OF BLOOD NOTED, SMALL LACERATION TO LIP/GUM. RN PROVIDED HYGIENE. PATIENT ORIENTED BACK TO BED AND NOW RESTING CALMLY.
--- NOTE | 2019-05-10 05:30 | NUR ---
DECREASED FENTANYL DRIP TWICE, TO MAINTAIN RASS SCORE -1. VERSED REMAINS AT 5MG/HR-5ML/HR.
[2019-05-10] MEDS: CLINDAMYCIN 600 MG in DEXTROSE 5% 50 ML IV SCH ×3 (06:02→20:29)
[2019-05-10] MEDS: methylPREDNISolone SS 40 MG/ML VIAL IVP SCH ×3 (06:02→20:29)
[2019-05-10 06:11] LABS: BASOPHILS % (AUTO) 0.1 % (0.0-2.0); HEMATOCRIT 25.8 % (36-48); HEMOGLOBIN 8.1 g/dL (12.0-16.0); LYMPHOCYTES # (AUTO) 0.4 K/uL (2.5-16.5); LYMPHOCYTES % (AUTO) 2.2 % (20.5-51.1); MEAN CORPUSCULAR HEMOGLOBIN 24 pg (27-31); MEAN CORPUSCULAR HGB CONC 31 g/dL (33-37); MEAN CORPUSCULAR VOLUME 77.4 fL (80-94); MONOCYTES # (AUTO) 0.9 K/uL (0.8-1.0); MONOCYTES % (AUTO) 4.6 % (1.7-9.3); NEUTROPHILS % (AUTO) 93.1 % (42.2-75.2); PLATELET COUNT (AUTO) 267 K/uL (140-450); RED BLOOD CELL COUNT(AUTO) 3.34 MIL/uL (4.20-5.40); RED CELL DISTRIBUTION WIDTH 18.1 % (11.6-13.7); WHITE BLOOD COUNT (AUTO) 19.4 K/uL (4.8-10.8)
[2019-05-10 06:43] LABS: ANION GAP 7.6 (8-16); CARBON DIOXIDE 34.8 mmol/L (21-32); POTASSIUM 3.4 mmol/L (3.5-5.1)
[2019-05-10 06:52] LABS: MAGNESIUM 2.2 mg/dL (1.8-2.4); PHOSPHORUS 4.2 mg/dL (2.5-4.9)
[2019-05-10] MEDS: BLOOD GLUCOSE MONITORING 1 DEV DEV FS SCH ×4 (07:15→20:29)
[2019-05-10 07:20] LABS: CREATININE 0.7 mg/dL (0.6-1.3)
--- NOTE | 2019-05-10 07:20 | NUR ---
RECEIVED REPORT FROM NIGHTSVAFT NURSELESLY. PT IN BED, ETT TO VENT, AC/VC SETTING 24%, VT 450, RR16, PEEP 5. LUNG SOUNDS CLEAR. O2 SATURATIONS 100%. BREATHING IS EVEN AND UNLABORED, NO SIGNS OF DISTRESS. S1S2, SR ON MONITOR, HR HIGH 90S. RIGHT UPPER ARM PICC LINE IN PLACE, DRESSING INTACT AND DRY. RUNNING NS AT 50ML/HR, VERSED AT 5MG/HR (5ML/HR) AND FENTANYL AT 1 MCG/KG/HOUR (6.8 ML/HR). DRY WEIGHT 68KG AND RASS -1. PATIENT OPENS EYES TO LIGHT TOUCH. OGT IN PLACE, TUBE FEEDING RUNNING GLUCERNA 1.2 AT 70ML/HR, H2O FLUSH 100ML Q4H. ABDOMEN IS SOFT AND NONTENDER, ACTIVE BOWEL SOUNDS. URIOSTEGUI CATHETER IN PLACE WITH CLEAR YELLOW URINE WITH SEDIMENTS. SKIN IS WARM AND DRY, TEMP 98.8F. SOME BRUISING NOTED AT UPPER EXTREMITIES. RIGHT LOWER LATERAL LEG HAS CHAI BANDAGE, DRESSING DRY AND INTACT. BILATERAL SOFT WRIST RESTRAINTS IN PLACE, SKIN INTACT AND CIRCULATION HAS GOOD PERFUSION, CAP REFILL <3 SECONDS. PATIENT ABLE TO MOVE ALL EXTREMITIES. HOB 30 DEGREES, BED LOCKED AND IN LOWEST POSITION.
[2019-05-10] MEDS: BUDESONIDE 0.5 MG/2 ML NEBU INH SCH ×2 (07:25→19:29)
[2019-05-10] MEDS: ALBUTEROL SULFATE/IPRATROPIU 3 ML SOL IH SCH ×3 (07:25→19:29)
--- NOTE | 2019-05-10 07:42 | NUR ---
RECEIVED PT INTUBATED WITH ETT SIZE 7.5 @ 22CM LIP LEVEL AND SECURED WITH ANCHOR-FAST. PT ON VENT SETTINGS ORDERED; VENT PLUGGED IN RED OUTLET; BVM AT BEDSIDE; HOB > 30; AND ALARMS SET AND AUDIBLE. SX SMALL AMOUNT OF HARKINS THICK SECRETIONS FROM THE ETT. NO RESPIRATORY DISTRESS NOTED AT THIS TIME; SP02 OF 98% AND A CRACKLES BREATH SOUNDS. HHN TX GIVEN ORDERED WITH NO ADVERSE REACTION. FAMILY. WILL CONTINUE TO MONITOR PT.
--- NOTE | 2019-05-10 07:45 | NUR ---
PT OPENING HER EYES, TRYING TO PULL HER ETT TUBE. REORIENTED PT, PT FOLLOWING COMMANDS BUT REMAINS RESTLESS. Addendum: 05/10/19 at 1608 by Robbin Love RN SEEPING FLUID FROM RIGHT ARM, CHUX AND PILLOW CASE CHANGED.
[2019-05-10] MEDS: fentaNYL 1 MG in NACL 0.9% 80 ML IV PRN ×2 (07:46→20:12)
[2019-05-10] MEDS: PANTOPRAZOLE 40 MG INJ VIAL IVP SCH (08:31)
[2019-05-10] MEDS: POTASSIUM CHLORIDE 20% 40 MEQ/15 ML UDC PO SCH (08:31)
[2019-05-10] MEDS: ASCORBIC ACID 500 MG/5 ML ORASYR GT SCH (08:32)
[2019-05-10] MEDS: LACTOBACILLUS RHAMNOSUS GG 1 EACH CAP PO SCH (08:32)
[2019-05-10] MEDS: amLODIPine 5 MG TAB PO SCH (08:32)
[2019-05-10] MEDS: LOSARTAN 25 MG TAB PO SCH (08:32)
[2019-05-10] MEDS: LEVOFLOXACIN 500 MG/D5W PREMIX 100 ML IV SCH (08:33)
[2019-05-10] MEDS: FERROUS SULFATE 300 MG/5 ML UDC NG SCH (08:33)
[2019-05-10] MEDS: FUROSEMIDE 40 MG/4 ML VIAL IVP SCH (08:33)
[2019-05-10] MEDS: ASPIRIN 81 MG TAB.CHEW PO SCH (08:33)
--- NOTE | 2019-05-10 08:45 | NUR ---
PT HAS HER EYES OPEN, APPEARS TO BE RESTLESS, MOVING HER LEGS. INCREASED FENTANYL TO 1.5MCG/KG/HR, DRY WEIGHT 68KG.
--- NOTE | 2019-05-10 10:00 | NUR ---
PLACED PT ON PEEP OF 5 AND PRESSURE SUPPORT OF 10. PT TOLERATING WELL. WILL CONTINUE TO MONITOR.
--- NOTE | 2019-05-10 10:00 | NUR ---
PT OFF VERSED FOR CPAP TRIAL.
[2019-05-10] MEDS: HYDROcodone/APAP 7.5/325 MG 1 TAB PO PRN (10:01)
--- NOTE | 2019-05-10 10:25 | NUR ---
DR GILLIS SEEN THE PT.
--- NOTE | 2019-05-10 10:45 | NUR ---
CPAP TRIAL ENDED DUE TO PT BEING APNEA. RT BERNABE NOTIFIED. Addendum: 05/10/19 at 1401 by Robbin Love RN PT WAS PLACED BACK ON AC/VC MODE WITH PREVIOUS SETTING.
--- NOTE | 2019-05-10 10:47 | NUR ---
PT TOLERATED CPAP TRIAL FOR 45 MINUTES ORDERED AND VENT SWITCHED BACK TO AC/VC MODE. MONITORING DURING CPAP TRIAL; RR 15-19 Vt 250-400 RSBI 60-47
[2019-05-10] MEDS ORDERED: KCL 20 MEQ/WATER INJ PREMIX 100 ML IV SCH (11:00)
[2019-05-10] MEDS: SKINTEGRITY HYDROGEL TP SCH (12:25)
--- NOTE | 2019-05-10 12:26 | NUR ---
05/10/19 FOLLOW UP COMPLETED PLEASE REFER TO NUTRITION ASSESSMENT UNDER CARE ACTIVITY FOR ESTIMATED NUTRITIONAL NEEDS. 1. CONTINUE TUBE FEEDING GLUCERNA @70MLS/HR -THIS WILL PROVIDE 2016KCALS, 100G PROTEIN, AND 1352 ML WATER; SUFFICIENT TO MEET 100% OF PATIENT'S DAILY ESTIMATED NUTRITIONAL NEEDS. 2. CONTINUE VITAMIN C SUPPLEMENTATION FOR WOUND HEALING. 3. CONTINUE FREE WATER FLUSH OF 100 ML Q4H 4. F/U 2-3 DAYS; HIGH RISK ANGELITA RICHTER RD
--- NOTE | 2019-05-10 16:00 | NUR ---
PT IS AGITATED TRYING TO PULL OUT ETT, EYES OPEN BUT NO TRACKING, REORIENTED PT, HOWEVER, STILL RESTLESS. SOFT WRISTS RESTRAINT IS ON, PT BUE HAS BRUISE AND SEEPING FLUID ON RIGHT ARM. RASS -1. ATIVAN GIVEN FOR AGITATION.
[2019-05-10] MEDS: LORazepam 2 MG/ML VIAL IVP PRN (16:04)
[2019-05-10] MEDS: MIDAZOLAM MDV 100 MG in NACL 0.9% 80 ML IV PRN (18:55)
--- NOTE | 2019-05-10 19:25 | NUR ---
RECEIVED REPORT FROM DAYSHIFT NURSE AT PATIENTS BEDSIDE. ANOx0, OPENS EYES TO LIGHT PAIN, DOES NOT TRACK, CANNOT FOLLOW SIMPLE COMMANDS. APPEARS RESTLESS. S1S2, SINUS TACH ON MONITOR, HEART RATE- 116 BPM. 7.5 ETT TO VENT, ACVC 16, FI02 24 % TV 450, PEEP 5. LUNG SOUNDS CLEAR, NO COUGH/CONGESTION/DISTRESS NOTED. SATURATION 96%. DAISY PICC LINE IN PLACE, INFUSING VERSED-7MG/HR (7ML/HR), RASS -1, FENTANYL @ 1.5 MCG/KG/HOUR (10.2 ML/HR) DRY WEIGHT 68KG, AND NS @ 50 ML/HR. ALL LUMENS ARE PATENT AND FLUSHED WITHOUT SYMPTOMS. OGT IN PLACE, CONNECTED TO TUBE FEEDING, GLUCERNA 1.2, 70ML/HR. ABDOMEN SOFT AND NONTENDER, ACTIVE BOWEL SOUNDS. URIOSTEGUI CATHETER IN PLACE, CLEAR YELLOW URINE NOTED. OPEN WOUND TO RIGHT LOWER LEG, PACKED WITH ADAPTIC, GAUZE AND KERLIX ROLL/CHAI BANDAGE. SKIN IS WARM AND DRY, AFEBRILE. BILATERAL SOFT WRIST RESTRAINTS IN PLACE, SKIN INTACT, CIRCULATION WNL. HOB 30 DEGREES, SIDERAILS x3, BED LOCKED AND IN LOWEST POSITION. WILL CONTINUE TO MONITOR.
[2019-05-10] MEDS: ATORVASTATIN 80 MG TAB PO SCH (20:29)
[2019-05-10] MEDS: INSULIN LANTUS 100 UNITS/ML 10 ML VIAL SUBQ SCH (20:33)
--- NOTE | 2019-05-10 21:10 | NUR ---
OGT IN PLACE, AIR CHECK AND AUSCULTATION CONFIRMED PLACEMENT . RESIDUALS LESS THAN 5 ML, PT TOLERATING FEEDING WELL. ADMINISTERED SCHEDULED MEDS VIA OGT. FAMILY AT BEDSIDE AND PROVIDED EDUCATION AND UPDATED ON TREATMENT PLAN.
--- NOTE | 2019-05-10 22:30 | NUR ---
PATIENT NOT RESPONDING TO TOUCH/REPOSITIONING. EYES CLOSED, BLOOD PRESSURE-SBP< 90. DECREASED VERSED TO 6ML/HR. PATIENT BECAME MORE RESPONSIVE, MOVES EXTREMITIES, RASS -1.
[2019-05-11] VITALS (105 sets, daily range): BP systolic 62–196; BP diastolic 43–107
--- NOTE | 2019-05-11 00:15 | NUR ---
PROVIDED ORAL CARE, TOLERATED WELL, SMALL WOUND AT LEFT SIDE LIP. SUCTIONED ORALLY AND AT TRACH. TURNED AND REPOSITIONED BUT PATIENT LIKES TO LEAN TOWARDS LEFT SIDE. ABLE TO MOVE ALL EXTREMITIES INDEPENDENTLY. SKIN AT RESTRAINTS ARE IN GOOD CONDITION, NO INJURIES NOTED. SMALL AMOUNT OF WEEPING AT BUE. SAFETY ALARMS IN PLACE. PT PLACED BACK ON SOFT WRIST RESTRAINTS.
[2019-05-11] MEDS: NACL 0.9% 1,000 ML IV SCH ×2 (01:37→21:48)
[2019-05-11] MEDS: HYDRAGUARD CREAM TP SCH ×2 (01:38→12:06)
[2019-05-11] MEDS: Z-GUARD PASTE TP SCH ×2 (01:38→12:06)
[2019-05-11] MEDS: fentaNYL 1 MG in NACL 0.9% 80 ML IV PRN ×2 (02:50→15:23)
--- NOTE | 2019-05-11 03:16 | NUR ---
NO CHANGES IN CONDITION, REPLACED PATIENTS TUBE FEEDING, STARTED A NEW BAG- GLUCERNA 1.2 @ 70ML. PT TOLERATING FEEDING WELL, NO RESIDUALS. TURNED AND POSITIONED PATIENT, REORIENTED PATIENT. EYES OPEN TO TOUCH AND VOICE, RASS -1.
--- NOTE | 2019-05-11 04:10 | NUR ---
REMOVED RESTRAINTS TO ASSESS PATIENT, RIGHT ARM STILL WEEPING WITH SMALL AMOUNT OF FLUIDS. SKIN AND CIRCULATION GOOD. PATIENT CONTINUES TO BE RESTLESS WHEN RESTRAINTS ARE REMOVED AND PATIENT TRYING TO GRAB LINES. REORIENTED PATIENT, EYES ARE OPEN BUT NOT FOLLOWING COMMANDS. OGT TO TUBE FEEDING IN PLACE, VERSED AND FENTANYL INFUSING TO MAINTAIN RASS -1. URIOSTEGUI IN PLACE, EMPTIED WITH SOME SEDIMENT AND YELLOW URINE NOTED. RIGHT LOWER LEG OPEN WOUND, DRESSING DRY AND INTACT. AFEBRILE. ETT TO VENT, SETTINGS SAME START OF SHIFT. WILL CONTINUE CLOSE MONITORING.
[2019-05-11] MEDS: CLINDAMYCIN 600 MG in DEXTROSE 5% 50 ML IV SCH ×3 (05:55→21:24)
[2019-05-11] MEDS: methylPREDNISolone SS 40 MG/ML VIAL IVP SCH ×3 (05:55→21:23)
--- NOTE | 2019-05-11 06:10 | NUR ---
RESIDENT MD IN TO ASSESS PATIENT, NO NEW ORDERS AT THIS TIME.
--- NOTE | 2019-05-11 06:15 | NUR ---
DECREASED SEDATION TO MAINTAIN RASS -1, MD AWARE. FENTANYL 1 MCG/KG/HOUR, DRY WEIGHT USED 68KG AND VERSED 5 MG/HR.
[2019-05-11] MEDS: BLOOD GLUCOSE MONITORING 1 DEV DEV FS SCH ×4 (07:13→21:25)
[2019-05-11] MEDS: ALBUTEROL SULFATE/IPRATROPIU 3 ML SOL IH SCH ×3 (07:25→19:22)
[2019-05-11] MEDS: BUDESONIDE 0.5 MG/2 ML NEBU INH SCH ×2 (07:25→19:22)
--- NOTE | 2019-05-11 07:25 | NUR ---
RECEIVED REPORT FROM NIGHTSHIFT NURSELESYL. PT IN BED, ETT TO VENT, AC/VC SETTING 24%, VT 450, RR16, PEEP 5. LUNG SOUNDS CLEAR. O2 SATURATIONS 99%. BREATHING IS EVEN AND UNLABORED, NO SIGNS OF DISTRESS. S1S2, SR ON MONITOR. RIGHT UPPER ARM PICC LINE IN PLACE, DRESSING DRY AND INTACT BUT WILL BE CHANGED TODAY. RUNNING NS AT 50ML/HR, VERSED AT 5MG/HR (5ML/HR) AND FENTANYL AT 1 MCG/KG/HOUR (6.8 ML/HR). DRY WEIGHT 68KG AND RASS -1. PATIENT OPENS EYES TO NAME. OGT IN PLACE, TUBE FEEDING RUNNING GLUCERNA 1.2 AT 70ML/HR, H2O FLUSH 100ML Q4H. ABDOMEN IS SOFT AND NONTENDER, ACTIVE BOWEL SOUNDS. URIOSTEGUI CATHETER IN PLACE DRAINING CLEAR YELLOW URINE WITH SEDIMENTS. SKIN IS WARM AND DRY, TEMP 98.8F, TEMPORAL. BRUISING NOTED ON BOTH ARMS. RIGHT LOWER LATERAL LEG HAS CHAI BANDAGE, DRESSING DRY AND INTACT. BILATERAL SOFT WRIST RESTRAINTS IN PLACE, SKIN INTACT AND CIRCULATION HAS GOOD PERFUSION, CAP REFILL <3 SECONDS. PATIENT ABLE TO MOVE ALL EXTREMITIES. HOB 30 DEGREES, BED LOCKED AND IN LOWEST POSITION.
[2019-05-11 07:31] LABS: HEMATOCRIT 27.3 % (36-48); HEMOGLOBIN 8.5 g/dL (12.0-16.0); MEAN CORPUSCULAR HEMOGLOBIN 24 pg (27-31); MEAN CORPUSCULAR HGB CONC 31 g/dL (33-37); MEAN CORPUSCULAR VOLUME 77.8 fL (80-94); PLATELET COUNT (AUTO) 285 K/uL (140-450); RED BLOOD CELL COUNT(AUTO) 3.51 MIL/uL (4.20-5.40); RED CELL DISTRIBUTION WIDTH 18.5 % (11.6-13.7)
--- NOTE | 2019-05-11 08:00 | NUR ---
REPOSITIONED PT WITH AGATHA LAN. PT GOT AGITATED AND CAUSED SKIN TEAR ON RIGHT ARM. PICTURE TAKEN, PROTECTED WITH VERSETEL. COVERED WITH NON ADHERENT FOAM DRESSING AND TERA. ALSO PLACE NON ADHERENT FOAM DRESSING AND TEAR FOR THE LEFT ARM FOR PREVENTATIVE MEASURE.
[2019-05-11 08:14] LABS: LYMPHOCYTES % (MANUAL) 4 % (20-46); MONOCYTES % (MANUAL) 9 % (5-12)
[2019-05-11] MEDS ORDERED: FUROSEMIDE 40 MG/4 ML VIAL IVP SCH (09:00)
--- NOTE | 2019-05-11 09:00 | NUR ---
DR LYNN UPDATED PT'S MOTHER AND NIECE ABOUT PT'S CONDITION.
[2019-05-11 09:05] LABS: CREATININE 0.6 mg/dL (0.6-1.3)
[2019-05-11] MEDS: POTASSIUM CHLORIDE 20% 40 MEQ/15 ML UDC PO SCH (09:42)
[2019-05-11] MEDS: LEVOFLOXACIN 500 MG/D5W PREMIX 100 ML IV SCH (09:43)
--- NOTE | 2019-05-11 09:45 | NUR ---
PT GOT RESTLESS, INCREASED VERSED TO 6MG/HR
[2019-05-11] MEDS: FERROUS SULFATE 300 MG/5 ML UDC NG SCH (09:46)
--- NOTE | 2019-05-11 09:46 | NUR ---
PT VERY RESTLESS MOVING AROUND IN BED, OPENS EYES BUT IS UNABLE TO FOLLOW COMMANDS. PT IS TACHYPNEIC. NURSE AWARE OF PT STATUS.
[2019-05-11] MEDS: ASCORBIC ACID 500 MG/5 ML ORASYR GT SCH (09:48)
[2019-05-11] MEDS: PANTOPRAZOLE 40 MG INJ VIAL IVP SCH (09:48)
[2019-05-11] MEDS: amLODIPine 5 MG TAB PO SCH (09:48)
[2019-05-11] MEDS: LACTOBACILLUS RHAMNOSUS GG 1 EACH CAP PO SCH (09:48)
[2019-05-11] MEDS: LOSARTAN 25 MG TAB PO SCH (09:49)
[2019-05-11] MEDS: ASPIRIN 81 MG TAB.CHEW PO SCH (09:49)
--- NOTE | 2019-05-11 10:00 | NUR ---
REPOSITIONED PT FOR COMFORT.
--- NOTE | 2019-05-11 11:35 | NUR ---
CHANGED PICC LINE DRESSING. STERIL TECHNIQUES USED.
--- NOTE | 2019-05-11 12:00 | NUR ---
REPOSITIONED PT WITH SERVER ENGINEER FROM [facility].
[2019-05-11] MEDS: INSULIN LISPRO SLIDING SCALE 100 UNITS/ML VIAL SUBQ PRN ×3 (12:32→21:27)
[2019-05-11] MEDS: MIDAZOLAM MDV 100 MG in NACL 0.9% 80 ML IV PRN (12:36)
--- NOTE | 2019-05-11 13:10 | NUR ---
PT'S DAUGHTER HARRIS CAME AND SAID SHE AGREES WITH TRACHEOSTOMY FOR THE PT BUT SHE STILL HAS A FEW QUESTIONS. I TOLD HER WHEN THE BUSINESS OFFICE DIRECTOR COME TO SEE PT, WILL LET THE DOCTOR CALL HER TO ADDRESS THE QUESTIONS.
[2019-05-11] MEDS: SKINTEGRITY HYDROGEL TP SCH (13:17)
--- NOTE | 2019-05-11 14:00 | NUR ---
REPOSITIONED PT FOR COMFORT.
--- NOTE | 2019-05-11 15:48 | NUR ---
PT AGITATED AT THIS TIME REACHING FOR ETT. PT TACHYPNEIC AND TACHYCARDIC. NURSE AWARE OF PT STATUS. WILL CONTINUE TO MONITOR. PT SUCTIONED OBTAINED SMALL AMOUNT OF BLOOD TINGED YELLOW SECRETIONS, AIRWAY IS PATENT AND ETT IS SECURE.
--- NOTE | 2019-05-11 17:14 | NUR ---
DR GILLIS WANTS TO TITRATE VERSED AND FENTANYL TO SEDATE PT WITH RASS -3.
--- NOTE | 2019-05-11 17:15 | NUR ---
DR GILLIS SPOKE WITH PT'S DAUGHTER HARRIS OVER THE PHONE. ALL HER QUESTIONS WERE ADDRESSED. OFFERED OPTION OF TELEPHONE CONSENT, HOWEVER, HARRIS WANTS TO COME TOMORROW TO SIGN THE CONSENT.
--- NOTE | 2019-05-11 17:28 | NUR ---
DR GILLIS UPDATED ON PT STATUS REGARDING AGITATION AND TACHYPNEA. PT REMAINS ON DOCUMENTED VENT SETTINGS. ETT IS SECURE WITH A PATENT AIRWAY. VENT ALARMS REMAIN ON AND FUNCTIONING.
--- NOTE | 2019-05-11 18:50 | NUR ---
RESIDENT DR TALLEY CAME AND ASSESSED PT. DR TALLEY IS AWARE OF THE LOW BP 83/47, MAP 60. DR TALLEY SAID OK TO START LEVOPHED IF BP MAP LESS THAN 60.
--- NOTE | 2019-05-11 19:00 | NUR ---
RECEIVED REPORT FROM DAY SHIFT NURSE, PT ASLEEP BUT ABLE TO RESPOND TO TACTILE STIMULI, KRYSTLE SCORE -3 WITH MULTIPLE DRIPS OF FENTANYL, VERSED, AND LEVOPHED ORDERED. BREATHING EVENLY AND UNLABORED, WITH ETT FIO2 30% PEEP 5, TV 450, RATE 16, NO SIGNS OF ACUTE DISTRESS. FLACC 0, SKIN IS WARM AND DRY, NOTED BUE SKIN AND RIGHT LEG VENOUS STASIS ULCER, DRESSING INTACT. KEPT CLEAN AND DRY. OFFLOAD TO PRESSURE AREAS, TURN AND REPOSITIONED. WITH ORAL G TUBE FEEDING GLUCERNA AT 70CC/HR. RESIDUAL MINIMAL 5-10CC. HOB ELEVATED AT LEAST 30 DEGREES, URIOSTEGUI CATHETER IN PLACE, DRAINING CLEAR YELLOW URINE. ORAL CARE WITH SUCTION PERFORMED. ALL NEEDS ANTICIPATED, SAFETY PRECAUTIONS MAINTAINED. CALL LIGHT WITHIN REACH.
[2019-05-11] MEDS ORDERED: NOREPINEPHRINE 4 MG/4 ML VIAL IV ONE (19:26)
[2019-05-11] MEDS: NOREPINEPHRINE 4 MG in DEXTROSE 5% 250 ML IV PRN (19:39)
[2019-05-11] MEDS: ATORVASTATIN 80 MG TAB PO SCH (21:23)
[2019-05-11] MEDS: INSULIN LANTUS 100 UNITS/ML 10 ML VIAL SUBQ SCH (21:28)
--- NOTE | 2019-05-11 21:30 | NUR ---
DUE MEDS GIVEN, TOLERATED WELL, TURNED AND REPOSITIONED, KEPT CLEAN AND DRY. CONTINUE TO MONITOR.
[2019-05-12] VITALS (102 sets, daily range): BP systolic 68–165; BP diastolic 44–104
--- NOTE | 2019-05-12 | NUR ---
TURNED AND REPOSITIONED, OFFLOAD TO PRESSURE AREAS, KEPT CLEAN AND DRY. CONTINUE TO MONITOR.
[2019-05-12] MEDS: HYDRAGUARD CREAM TP SCH ×2 (01:11→12:44)
[2019-05-12] MEDS: Z-GUARD PASTE TP SCH ×2 (01:12→12:45)
[2019-05-12] MEDS: fentaNYL 1 MG in NACL 0.9% 80 ML IV PRN ×3 (01:17→20:58)
--- NOTE | 2019-05-12 02:00 | NUR ---
PT TURNED, CHANGED AND REPOSITIONED, PROVIDED ORAL CARE AND SUCTION. CONTINUE TO MONITOR.
[2019-05-12] MEDS: MIDAZOLAM MDV 100 MG in NACL 0.9% 80 ML IV PRN (04:02)
[2019-05-12] MEDS: methylPREDNISolone SS 40 MG/ML VIAL IVP SCH ×3 (04:53→20:50)
[2019-05-12] MEDS: CLINDAMYCIN 600 MG in DEXTROSE 5% 50 ML IV SCH ×3 (04:53→20:50)
[2019-05-12 06:24] LABS: ANION GAP 9.6 (8-16); CARBON DIOXIDE 30.9 mmol/L (21-32); CREATININE 0.6 mg/dL (0.6-1.3); POTASSIUM 4.5 mmol/L (3.5-5.1)
[2019-05-12 06:26] LABS: HEMATOCRIT 25.2 % (36-48); HEMOGLOBIN 7.7 g/dL (12.0-16.0); MEAN CORPUSCULAR HEMOGLOBIN 24 pg (27-31); MEAN CORPUSCULAR HGB CONC 30 g/dL (33-37); MEAN CORPUSCULAR VOLUME 78.8 fL (80-94); PLATELET COUNT (AUTO) 273 K/uL (140-450); RED CELL DISTRIBUTION WIDTH 18.5 % (11.6-13.7); WHITE BLOOD COUNT (AUTO) 21.7 K/uL (4.8-10.8)
[2019-05-12 06:29] LABS: MAGNESIUM 2.2 mg/dL (1.8-2.4); PHOSPHORUS 3.8 mg/dL (2.5-4.9)
[2019-05-12 06:49] LABS: LYMPHOCYTES % (MANUAL) 3 % (20-46); MONOCYTES % (MANUAL) 7 % (5-12)
--- NOTE | 2019-05-12 06:59 | NUR ---
PT RESTING AND ASLEEP IN BED, NO SIGNS OF ACUTE DISTRESS, FLACC 0. WILL ENDORSE TO ONCOMING DAY SHIFT NURSE FOR CONTINUITY OF CARE.
[2019-05-12] MEDS: BLOOD GLUCOSE MONITORING 1 DEV DEV FS SCH ×4 (07:01→20:49)
--- NOTE | 2019-05-12 07:04 | NUR ---
RECEIVED INTUBATED PT WITH A 7.5 ETT SECURED @20 TEETH/GUM ON VENT. SETTINGS AC/VC 16, VT 450, PEEP 5 AND FIO2 24%. AIRWAY IS PATENT AND ETT IS SECURE. PT IS SEDATED AT THIS TIME NOT IN ANY DISTRESS. VENT IS PLUGGED INTO A RED OUTLET WITH ALARMS ON AND FUNCTIONING. WILL CONTINUE TO MONITOR.
[2019-05-12] MEDS: BUDESONIDE 0.5 MG/2 ML NEBU INH SCH ×2 (07:05→19:34)
[2019-05-12] MEDS: ALBUTEROL SULFATE/IPRATROPIU 3 ML SOL IH SCH ×3 (07:05→19:34)
--- NOTE | 2019-05-12 07:10 | NUR ---
RECEIVED REPORT FROM NIGHTSHIFT NURSECHAI. PT IN BED, ETT TO VENT, AC/VC SETTING 30%, VT 450, RR16, PEEP 5. RASS -3. OPEN EYES TO TOUCH. PERRL, 3MM. LUNG SOUNDS CLEAR. O2 SATURATIONS 100%. BREATHING IS EVEN AND UNLABORED, NO SIGNS OF DISTRESS. S1S2, SR ON MONITOR, HR IN 70S. RIGHT UPPER ARM PICC LINE IN PLACE, DRESSING INTACT AND DRY. RUNNING NS AT 50ML/HR, VERSED AT 6MG/HR (6ML/HR) AND FENTANYL AT 1.5 MCG/KG/HOUR (10.2 ML/HR). DRY WEIGHT 68KG, LEVOPHED AT 2MCG/MIN. OGT IN PLACE, TUBE FEEDING RUNNING GLUCERNA 1.2 AT 70ML/HR, H2O FLUSH 100ML Q4H. ABDOMEN IS SOFT AND NONTENDER, ACTIVE BOWEL SOUNDS. URIOSTEGUI CATHETER IN PLACE WITH CLEAR YELLOW URINE WITH SEDIMENTS. SKIN IS WARM AND DRY, TEMP 98.1F. BRUISING NOTED AT UPPER EXTREMITIES, BILATERAL SOFT WRIST RESTRAINTS IN PLACE, BILATERAL WRIST PROTECTED WITH FOAM DRESSING AND TERA. RIGHT LOWER LATERAL LEG HAS CHAI BANDAGE, DRESSING DRY AND INTACT. CIRCULATION HAS GOOD PERFUSION, CAP REFILL <3 SECONDS. PATIENT ABLE TO MOVE ALL EXTREMITIES. HOB 30 DEGREES, BED LOCKED AND IN LOWEST POSITION.
--- NOTE | 2019-05-12 07:55 | NUR ---
DR LYNN SEEN PT. MADE HIM AWARE PT IS UNDER MODERATE SEDATION PER DR GILLIS'S ORDER RASS -3. HOWEVER, PT'S BP DROPPED AND IS NOW ON LEVOPHED AT 2MCG/MIN. DR LYNN SAID TO HOLD PT'S BP MEDICATION LOSARTAN AND AMLODIPINE. Addendum: 05/12/19 at 0759 by Robbin Love RN ALSO MADE DR LYNN AWARE THAT PT HAD NO BM IN LAST 2 DAYS BUT PT PASSING GAS. DR LYNN SAID THAT'S FINE.
[2019-05-12] MEDS: ASPIRIN 81 MG TAB.CHEW PO SCH (08:38)
[2019-05-12] MEDS: LACTOBACILLUS RHAMNOSUS GG 1 EACH CAP PO SCH (08:38)
[2019-05-12] MEDS: POTASSIUM CHLORIDE 20% 40 MEQ/15 ML UDC PO SCH ×2 (08:39→08:48)
[2019-05-12] MEDS: PANTOPRAZOLE 40 MG INJ VIAL IVP SCH (08:39)
[2019-05-12] MEDS: LEVOFLOXACIN 500 MG/D5W PREMIX 100 ML IV SCH (08:40)
[2019-05-12] MEDS: ASCORBIC ACID 500 MG/5 ML ORASYR GT SCH (08:40)
[2019-05-12] MEDS: FERROUS SULFATE 300 MG/5 ML UDC NG SCH (08:40)
--- NOTE | 2019-05-12 10:33 | NUR ---
PT PLACED ON CPAP VT INADEQUATE PT UNABLE TO FOLLOW COMMANDS, PT BECAME TACHYPNEIC, RR 30'S. RETURNED TO AC/VC. WILL CONTINUE TO MONITOR.
--- NOTE | 2019-05-12 11:00 | NUR ---
DR. HUERTA CAME IN TO EVALUATE PATIENT AT BEDSIDE, WILL FOLLOW UP WITH NEW ORDERS.
--- NOTE | 2019-05-12 11:33 | NUR ---
PT HAS EYES OPEN AGITATED AT THIS TIME. NURSE IS BEDSIDE. WILL CONTINUE TO MONITOR.
[2019-05-12] MEDS: LORazepam 2 MG/ML VIAL IVP PRN (11:56)
--- NOTE | 2019-05-12 12:20 | NUR ---
DR DANIELLE CALLED PT'S DAUGHTER HARRIS OVER THE PHONE EXPLAINED PEG TUBE PLACEMENT. TELEPHONE CONSENT OBTAINED BY TWO NURSES.
[2019-05-12] MEDS: SKINTEGRITY HYDROGEL TP SCH (12:44)
[2019-05-12] MEDS: INSULIN LISPRO SLIDING SCALE 100 UNITS/ML VIAL SUBQ PRN (12:58)
--- NOTE | 2019-05-12 13:00 | NUR ---
WOUND TX DONE FOR THE RIGHT LEG, RINSED WITH NS, PATTED DRY, APPLIED HYDRO GEL AND ADAPTIC, WRAPPED WITH TERA AND CHAI DRESSING.
--- NOTE | 2019-05-12 13:11 | NUR ---
VENT CHECK COMPLETED. FAMILY MEMBER IS BEDSIDE. PT IS SEDATED SLIGHTLY AGITATED NOT IN RESPIRATORY DISTRESS. WILL CONTINUE TO MONITOR.
--- NOTE | 2019-05-12 13:13 | NUR ---
FEEDING TURNED OFF PER MD ORDER.
[2019-05-12] MEDS: DEXT 5% / NACL 0.45% 1,000 ML IV SCH (13:26)
--- NOTE | 2019-05-12 17:00 | NUR ---
TURNED TUBE FEEDING BACK ON, AT 70ML, H2O FLUSH 100ML Q4H.
--- NOTE | 2019-05-12 17:39 | NUR ---
PT REMAINS ON DOCUMENTED VENT SETTINGS. PT TACHYPNEIC AT THIS TIME. ETT IS SECURE WITH A PATENT AIRWAY. VENT ALARMS REMAIN ON AND FUNCTIONING.
--- NOTE | 2019-05-12 19:00 | NUR ---
RECEIVED REPORT FROM DAY SHIFT NURSE, CONTINUE CURRENT PLAN OF CARE, PT ASLEEP BUT ABLE TO RESPOND TO VERBAL AND TACTILE STIMULI, KRYSTLE SCORE -3 WITH MULTIPLE DRIPS OF FENTANYL AND VERSED ORDERED. BREATHING EVENLY AND UNLABORED, WITH ETT FIO2 30% PEEP 5, TV 450, RATE 16, NO SIGNS OF ACUTE DISTRESS. FLACC 0, SKIN IS WARM AND DRY, NOTED BUE SKIN AND RIGHT LEG VENOUS STASIS ULCER, DRESSING INTACT. KEPT CLEAN AND DRY. OFFLOAD TO PRESSURE AREAS, TURN AND REPOSITIONED. WITH ORAL G TUBE FEEDING GLUCERNA AT 70CC/HR. RESIDUAL MINIMAL 5-10CC. HOB ELEVATED AT LEAST 30 DEGREES, URIOSTEGUI CATHETER IN PLACE, DRAINING CLEAR YELLOW URINE. ORAL CARE WITH SUCTION PERFORMED. ALL NEEDS ANTICIPATED, SAFETY PRECAUTIONS MAINTAINED. CALL LIGHT WITHIN REACH.
[2019-05-12] MEDS: DOCUSATE SODIUM 100 MG GELCAP PO PRN (19:08)
--- NOTE | 2019-05-12 19:46 | NUR ---
CHARGE NURSE SPOKE WITH AREN VERAS. RECEIVED ORDER TO HOLD HEPARIN TODAY AND TOMORROW. NOTED AND CARRIED OUT.
[2019-05-12] MEDS: ATORVASTATIN 80 MG TAB PO SCH (20:50)
[2019-05-12] MEDS: INSULIN LANTUS 100 UNITS/ML 10 ML VIAL SUBQ SCH (20:50)
--- NOTE | 2019-05-12 22:00 | NUR ---
TURNED AND REPOSITIONED, OFFLOAD TO PRESSURE AREAS, KEPT CLEAN AND DRY. CONTINUE TO MONITOR.
[2019-05-12] MEDS ORDERED: BISACODYL 5 MG TABEC GT/PO SCH (23:30)
[2019-05-13] VITALS (98 sets, daily range): BP systolic 80–187; BP diastolic 46–102
[2019-05-13] MEDS: HYDRAGUARD CREAM TP SCH ×2 (00:03→13:30)
[2019-05-13] MEDS: Z-GUARD PASTE TP SCH ×2 (00:03→13:30)
--- NOTE | 2019-05-13 00:03 | NUR ---
TUBE FEEDING PLACE ON HOLD, NPO ORDERED AFTER MIDNIGHT. PT ASLEEP IN BED, NO SIGNS OF ACUTE DISTRESS, OFFLOAD TO PRESSURE AREAS, FLACC 0.
--- NOTE | 2019-05-13 03:01 | NUR ---
PREOP CHECKLIST COMPLETED.
--- NOTE | 2019-05-13 04:00 | NUR ---
PT TURNED AND REPOSITIONED, ORAL CARE WITH SUCTION PERFORMED, CHANGE BED LINENS AND GOWN, CHG BATH PERFORMED. CONTINUE TO MONITOR.
[2019-05-13] MEDS: CLINDAMYCIN 600 MG in DEXTROSE 5% 50 ML IV SCH ×3 (04:47→20:56)
[2019-05-13] MEDS: fentaNYL 1 MG in NACL 0.9% 80 ML IV PRN ×3 (04:50→21:49)
[2019-05-13] MEDS: methylPREDNISolone SS 40 MG/ML VIAL IVP SCH ×3 (04:51→20:56)
[2019-05-13 06:14] LABS: BASOPHILS % (AUTO) 0.1 % (0.0-2.0); HEMOGLOBIN 7.9 g/dL (12.0-16.0); LYMPHOCYTES # (AUTO) 0.5 K/uL (2.5-16.5); LYMPHOCYTES % (AUTO) 2.4 % (20.5-51.1); MEAN CORPUSCULAR HEMOGLOBIN 24 pg (27-31); MEAN CORPUSCULAR HGB CONC 30 g/dL (33-37); MEAN CORPUSCULAR VOLUME 78.9 fL (80-94); MONOCYTES # (AUTO) 0.8 K/uL (0.8-1.0); MONOCYTES % (AUTO) 4.1 % (1.7-9.3); NEUTROPHILS # (AUTO) 17.8 K/uL (1.8-7.7); NEUTROPHILS % (AUTO) 93.4 % (42.2-75.2); PLATELET COUNT (AUTO) 238 K/uL (140-450)
[2019-05-13 06:42] LABS: PROTHROMBIN TIME 10.1 secs (10.8-13.4)
[2019-05-13 06:46] LABS: MAGNESIUM 2.2 mg/dL (1.8-2.4); PHOSPHORUS 3.8 mg/dL (2.5-4.9)
--- NOTE | 2019-05-13 06:53 | NUR ---
Taz MARTINEZ MADE AWARE TO RENEW RESTRAINTS ORDER, VERBALIZED WILL PUT THE ORDER IN TODAY.
[2019-05-13] MEDS: ALBUTEROL SULFATE/IPRATROPIU 3 ML SOL IH SCH ×2 (06:57→19:34)
[2019-05-13] MEDS: BUDESONIDE 0.5 MG/2 ML NEBU INH SCH ×2 (06:57→19:34)
--- NOTE | 2019-05-13 07:20 | NUR ---
RECEIVED REPORT FROM PM SHIFT NURSE, PT SEDATED WITH VERSED @6 MG/HR AND FENTANYL DRIP AT 2 MCG/KG/HR BASED ON WEIGHT 68 KG. ABLE TO RESPOND TO VERBAL OR TACTILE STIMULI, KRYSTLE SCORE -3 . ETT TO VENT WITH SETTING FIO2=24%, AC/VC 16, VT 450, PEEP =5. BREATHING EVENLY AND UNLABORED, NO SIGNS OF ACUTE DISTRESS. LUNG SOUND CLEAR. OG TUBE IN PLACE, PER PM SHIFT RN. PT NPO AFTER MIDNIGHT DUE TO PT HAS G-TUBE AND TRACHEOSTOMY TODAY. SKIN NON INTACT ( SEE WOUND ASSESSMENT ) . F/C IN PLACE WITH YELLOW URINE NOTED. HOB ELEVATED AT 30 DEGREES. PT HAS SOFT WRIST RESTRAIN IN PLACE, CIRCULATION CHECKED. WILL CONTINUE TO MONITOR.
[2019-05-13 07:26] LABS: ANION GAP 12.1 (8-16); CARBON DIOXIDE 27.2 mmol/L (21-32); CREATININE 0.6 mg/dL (0.6-1.3); POTASSIUM 4.3 mmol/L (3.5-5.1)
[2019-05-13] MEDS: BLOOD GLUCOSE MONITORING 1 DEV DEV FS SCH ×4 (07:29→20:55)
--- NOTE | 2019-05-13 07:29 | NUR ---
BS 162, PT WILL HAVE TRACH AND G-TUBE TODAY. NPO. NO INSULIN PER DR. LYNN Addendum: 05/13/19 at 0730 by Osiel Fox RN OK TO HAVE MEDS FROM OG TUBE PER DR. LYNN.
--- NOTE | 2019-05-13 08:00 | NUR ---
TURNED AND REPOSITIONED PT. ORAL CARE GIVEN. OG TUBE RESIDUAL CHECKED 100 CC. RETURNED IT BACK.
[2019-05-13] MEDS: PANTOPRAZOLE 40 MG INJ VIAL IVP SCH (08:39)
[2019-05-13] MEDS: ASCORBIC ACID 500 MG/5 ML ORASYR GT SCH (08:39)
[2019-05-13] MEDS: FERROUS SULFATE 300 MG/5 ML UDC NG SCH (08:39)
[2019-05-13] MEDS: LACTOBACILLUS RHAMNOSUS GG 1 EACH CAP PO SCH (08:40)
[2019-05-13] MEDS: LEVOFLOXACIN 500 MG/D5W PREMIX 100 ML IV SCH (08:40)
[2019-05-13] MEDS: MIDAZOLAM MDV 100 MG in NACL 0.9% 80 ML IV PRN (08:47)
--- NOTE | 2019-05-13 10:05 | NUR ---
WOUND CARE RE-EVALUATION TO RLE WOUND BED 4.5X3X0.5CM WOUND BED PINK WITH SCATTERED THIN YELLOW SLOUGH, MOIST WOUND WITH NO ODOR, HORACIO WOUND NO ERYTHEMA, NO SWELLING, HORACIO WOUND SKIN INTACT. WILL CONTINUE TO APPLY HYDROGEL TO WOUND BED ORDERED.
[2019-05-13] MEDS: DEXT 5% / NACL 0.45% 1,000 ML IV SCH (10:52)
[2019-05-13] MEDS: INSULIN LISPRO SLIDING SCALE 100 UNITS/ML VIAL SUBQ PRN (11:26)
--- NOTE | 2019-05-13 11:26 | NUR ---
insulin subq 2 units given. pt BS 176.
--- NOTE | 2019-05-13 11:28 | NUR ---
PT'S DAUGHTER ZHO AT BEDSIDE. UPDATED PT'S CONDITION. PT'S DAUGHTER ASKED PT'S PROCEDURE TIME. TOLD FILEMONO WE DO NOT KNOW WHICH TIME YET. PT'S DAUGHTER STATED SHE WILL WAIT IN LOBBY.
[2019-05-13] MEDS ORDERED: BUPIVACAINE-MPF 0.25% 30 ML VIAL INJ ONE (11:45)
--- NOTE | 2019-05-13 11:52 | NUR ---
PT'S DAUGHTER AND MOTHER AT BEDSIDE .
[2019-05-13] MEDS ORDERED: ROCURONIUM 50 MG/5 ML VIAL IV ONE (12:05)
[2019-05-13] MEDS ORDERED: PROPOFOL 200 MG/20 ML VIAL IV ONE (12:05)
[2019-05-13] MEDS ORDERED: SEVOFLURANE 250 ML BTL INH ONE (12:05)
--- NOTE | 2019-05-13 12:09 | NUR ---
PT LEFT FOR SURGERY. ACCOMPANIED BY RN FROM OR. PT'S DAUGHTER AND MOTHER AT BEDSIDE.
--- NOTE | 2019-05-13 13:17 | NUR ---
PT CAME BACK FROM OR. TRACH SITE AND G-TUBE SITE ARE CLEAN. VITALS STABLE. NO FEVER.
[2019-05-13] MEDS: SKINTEGRITY HYDROGEL TP SCH (13:30)
--- NOTE | 2019-05-13 13:30 | NUR ---
DR. HUERTA IN TO CHECK PT. PER DR. HUERTA, OK TO GIVE MED TO G-TUBE BUT DO NOT START TUBE FEEDING UNTIL TOMORROW.
--- NOTE | 2019-05-13 13:45 | NUR ---
WOUND TO LEFT ARM AND RIGHT LOWER LEG DRESSING CHANGED. CLEANED WOUND WITH NS, PATTED DRY, APPLIED HYDROGEL, ADAPTIC AND WRAPPED WITH TERA AND CHAI DRESSING. WOUND TO RIGHT ARM WAS DRY AND CLEAN.
--- NOTE | 2019-05-13 15:46 | NUR ---
05/13/19 FOLLOW UP COMPLETED PLEASE REFER TO NUTRITION ASSESSMENT UNDER CARE ACTIVITY FOR ESTIMATED NUTRITIONAL NEEDS. 1. CONTINUE NPO MEDICALLY NECESSARY 2. IF/WHEN PT IS MEDICALLY CLEARED CONSIDER TUBE FEEDING OF GLUCERNA @65 ML/HR X 24 HR -THIS WILL PROVIDE 1875 KCAL, 93.6G PROTEIN, AND 1255 ML OF WATER; SUFFICIENT TO MEET 100% OF PATIENT'S DAILY ESTIMATED NUTRITIONAL NEEDS. 3. CONTINUE VITAMIN C SUPPLEMENTATION FOR WOUND HEALING. 4. CONTINUE FREE WATER FLUSH OF 100 ML Q4H 5. F/U 2-3 DAYS; HIGH RISK ANGELITA RICHTER RD
--- NOTE | 2019-05-13 16:30 | NUR ---
DR. GILLIS IN TO CHECK PT. UPDATED PT'S CONDITION. PER DR. GILLIS, WEANING PT OFF SEDATION GRADUALLY. DO NOT HAVE TO WEAN PT OFF SEDATION TODAY. WILL CARRY OUT.
--- NOTE | 2019-05-13 17:15 | NUR ---
VENT ALARMS REMAIN ON AND FUNCTIONING. TRACH IS SECURE WITH A PATENT AIRWAY. PT REMAINS ON DOCUMENTED VENT SETTINGS.
--- NOTE | 2019-05-13 18:15 | NUR ---
PT IS MORE AWAKE AND AGITATED AFTER DECREASING VERSED . HR AND BP INCREASED. CALLED RESIDENT'S OFFICE, NOTIFIED DR. MADDOX.
--- NOTE | 2019-05-13 18:43 | NUR ---
DR. MADDOX AT BEDSIDE TO CHECK PT. HAD CONVERSATION WITH PT'S FAMILY REGARDING PROGRESS.
--- NOTE | 2019-05-13 19:10 | NUR ---
ENDORSED PT TO PM SHIFT RN.
[2019-05-13] MEDS: MORPHINE SULFATE 2 MG/ML SYR IVP PRN (19:27)
--- NOTE | 2019-05-13 19:30 | NUR ---
RECEIVED BEDSIDE REPORT FROM DAY SHIFT NURSE AND TOOK OVER CARE OF PT. PT SEDATED W/ VERSED AT 4 MG/HR AN FENTANYL AT 2 MCG/KG/HR W/ DRY WEIGHT OF 68 KG. INCREASED FENTANYL TO 2.5 MCG/KG/HR TO MAINTAIN RASS OF -3. PT RESPONDS TO VERBAL STIMULI AND IS ABLE TO OPEN EYES SPONTANEOUSLY. EYES PERRL. PT IS TRACH TO VENT ACVC FIO2 24% VT 450 RATE 16 PEEP 5. LUNG SOUNDS ARE CLEAR THROUGHOUT ALL LOBES. S1 S2 HEART TONES ARE HEARD. PT IS SINUS TACH. PEG TUBE NOTED. BOWEL SOUNDS ARE HEARD. CAP REFILL <3 SECONDS. MEDICAL RESTRAINTS WERE FOUND ON BOTH WRISTS. BILATERAL RADIAL PULSES WERE FELT AND WERE NORMAL. PT HAS WOUNDS ON BILATERAL WRISTS THAT ARE DRESSED UNDERNEATH THE RESTRAINTS. PT HAS WOUND ON RLE LATERALLY THAT IS DRESSED. URIOSTEGUI CATHETER IS NOTED. BED IS LOCKED AND PT IS IN SEMI FOWLERS POSITION W/ NO IMMEDIATE SIGNS OF DISTRESS
--- NOTE | 2019-05-13 20:00 | NUR ---
TURNED AND REPOSITION PT. ORAL CARE WAS GIVEN.
[2019-05-13] MEDS: ATORVASTATIN 80 MG TAB PO SCH (20:57)
[2019-05-13] MEDS: INSULIN LANTUS 100 UNITS/ML 10 ML VIAL SUBQ SCH (21:00)
[2019-05-14] VITALS (84 sets, daily range): BP systolic 72–187; BP diastolic 41–119
[2019-05-14] MEDS: HYDRAGUARD CREAM TP SCH ×2 (01:00→13:00)
[2019-05-14] MEDS: Z-GUARD PASTE TP SCH ×2 (01:00→13:00)
--- NOTE | 2019-05-14 01:00 | NUR ---
HCG BATH COMPLETED, LINENS CHANGED, WOUNDS ASSESSED AND SKIN CARE WAS PROVIDED.
[2019-05-14] MEDS: CLINDAMYCIN 600 MG in DEXTROSE 5% 50 ML IV SCH ×3 (04:00→20:38)
[2019-05-14] MEDS: DEXT 5% / NACL 0.45% 1,000 ML IV SCH (04:01)
[2019-05-14] MEDS: methylPREDNISolone SS 40 MG/ML VIAL IVP SCH ×3 (04:01→20:39)
--- NOTE | 2019-05-14 04:15 | NUR ---
ORAL CARE PROVIDED. RT AT BEDSIDE
[2019-05-14] MEDS: fentaNYL 1 MG in NACL 0.9% 80 ML IV PRN ×3 (04:30→20:48)
[2019-05-14 05:57] LABS: ANION GAP 9.8 (8-16); CREATININE 0.5 mg/dL (0.6-1.3); POTASSIUM 3.8 mmol/L (3.5-5.1)
[2019-05-14] MEDS: DEXTROSE 50% 50 ML SYR IVP PRN ×2 (05:59→16:44)
[2019-05-14] MEDS: BLOOD GLUCOSE MONITORING 1 DEV DEV FS SCH ×4 (05:59→20:50)
[2019-05-14] MEDS: ALBUTEROL SULFATE/IPRATROPIU 3 ML SOL IH SCH ×3 (06:40→19:33)
[2019-05-14] MEDS: BUDESONIDE 0.5 MG/2 ML NEBU INH SCH ×2 (06:40→19:33)
--- NOTE | 2019-05-14 07:30 | NUR ---
RECEIVED REPORT FROM PM SHIFT NURSE, PT SEDATED WITH VERSED @4 MG/HR AND FENTANYL DRIP AT 2.5 MCG/KG/HR ( 17 cc/hr) BASED ON WEIGHT 68 KG TO RIGHT UPPER ARM PICC LINE. PT ALSO HAS D5 1/2 NS AT 50 CC/HR. PT BP 81/47, HR 68, RR 16 AND O2 SATS 100%. DECREASED FENTANYL DRIP TO 2 MCG/KG/HR AND VERSED TO 3 MG/HR. TRACH TO VENT WITH SETTING FIO2=24%, AC/VC 16, VT 450, PEEP =5. BREATHING EVENLY AND UNLABORED, NO SIGNS OF ACUTE DISTRESS. LUNG SOUND CLEAR. G-TUBE IN PLACE, SKIN NON INTACT ( SEE WOUND ASSESSMENT ) . F/C IN PLACE WITH URINE NOTED. HOB ELEVATED AT 30 DEGREES. PT HAS SOFT WRIST RESTRAIN IN PLACE, CIRCULATION CHECKED. SCD IN PLACE. WILL CONTINUE TO MONITOR.
--- NOTE | 2019-05-14 08:30 | NUR ---
PT BP 88/47, DECREASED VERSED FROM 3 MG/HR TO 2 MG/HR. DR. GILLIS CAME IN TO CHECK PT, NOTIFIED DR. GILLIS PT DID NOT TOLERATE VERY WELL WHEN WE TRIED TO WEAN PT OFF SEDATION. LATE ENTRY DUE TO COMPUTER WAS DOWN SINCE THIS MORNING 0600
[2019-05-14] MEDS: LACTOBACILLUS RHAMNOSUS GG 1 EACH CAP PO SCH (09:00)
[2019-05-14] MEDS ORDERED: ASPIRIN 81 MG TAB.CHEW PO SCH (09:00)
[2019-05-14] MEDS: FERROUS SULFATE 300 MG/5 ML UDC NG SCH (09:00)
[2019-05-14] MEDS: ASPIRIN 81 MG TAB.CHEW PO SCH (09:00)
[2019-05-14] MEDS: LEVOFLOXACIN 500 MG/D5W PREMIX 100 ML IV SCH (09:00)
[2019-05-14] MEDS: ASCORBIC ACID 500 MG/5 ML ORASYR GT SCH (09:00)
[2019-05-14] MEDS: PANTOPRAZOLE 40 MG INJ VIAL IVP SCH (09:00)
[2019-05-14] MEDS: DOCUSATE SODIUM 100 MG GELCAP PO PRN (09:30)
--- NOTE | 2019-05-14 09:30 | NUR ---
COMPUTER IS DOWN, ALL DUE MEDS AT 0900 PLUS COLACE GIVEN ( PT DOES NOT HAVE BM FOR SEVERAL DAYS PER ORDER). PT TOLERATED WELL.
[2019-05-14 10:51] LABS: HEMATOCRIT 26.2 % (36-48); LYMPHOCYTES # (AUTO) 0.6 K/uL (2.5-16.5); LYMPHOCYTES % (AUTO) 2.5 % (20.5-51.1); MEAN CORPUSCULAR HEMOGLOBIN 24 pg (27-31); MEAN CORPUSCULAR HGB CONC 31 g/dL (33-37); MEAN CORPUSCULAR VOLUME 78.7 fL (80-94); MONOCYTES # (AUTO) 0.9 K/uL (0.8-1.0); MONOCYTES % (AUTO) 3.8 % (1.7-9.3); NEUTROPHILS # (AUTO) 22.7 K/uL (1.8-7.7); NEUTROPHILS % (AUTO) 93.7 % (42.2-75.2); PLATELET COUNT (AUTO) 254 K/uL (140-450); RED BLOOD CELL COUNT(AUTO) 3.32 MIL/uL (4.20-5.40); RED CELL DISTRIBUTION WIDTH 19.2 % (11.6-13.7); WHITE BLOOD COUNT (AUTO) 24.2 K/uL (4.8-10.8)
--- NOTE | 2019-05-14 11:20 | NUR ---
dr. gerardo at bedside to check pt. per , ok to give tube feeding . dr. gerardo also wanted to give pt more sedation due to pt has new trach. increased versed to 6 mg/hr.
--- NOTE | 2019-05-14 11:49 | NUR ---
AT 1040, CHECKED PT BS 55, GAVE D50 IVP. RECHECK BS 129 AT THIS TIME. DUE TO COMPUTER PROBLEM. I WAS UNABLE TO SCAN MEDS BUT DOUBLE CHECKED WITH CHARGE NURSE.
[2019-05-14] MEDS: MIDAZOLAM MDV 100 MG in NACL 0.9% 80 ML IV PRN (11:57)
[2019-05-14] MEDS: SKINTEGRITY HYDROGEL TP SCH (13:00)
--- NOTE | 2019-05-14 15:02 | NUR ---
CALLED [facility] FOR TUBE FEEDING.
--- NOTE | 2019-05-14 15:20 | NUR ---
STARTED TUBE FEEDING AT 10 CC/HR. NO RESIDUAL NOTED BEFORE FEED PT.
--- NOTE | 2019-05-14 15:30 | NUR ---
NOTIFIED DR. DANIELLE PT HAS ECCHYMOSIS TO LEFT LATERAL SIDE OF ABD. PT ALSO HAS SOME HEMATURIA NOTED. PER DR. DANIELLE, SHE WILL ORDER SOME MEDS FOR THE RASH AND TOLD ME TO IRRIGATE F/C, IF PT STILL HAS HEMATURIA, NOTIFY TOMORROW. IRRIGATED F/C.
[2019-05-14] MEDS: MORPHINE SULFATE 2 MG/ML SYR IVP PRN ×2 (17:01→20:48)
--- NOTE | 2019-05-14 18:44 | NUR ---
PT BS 39, IVP D 50, AT 1844 RECHECK BS 98.
--- NOTE | 2019-05-14 19:12 | NUR ---
ENDORSED TO PM SHIFT RN.
--- NOTE | 2019-05-14 19:20 | NUR ---
RECEIVED BEDSIDE REPORT FROM MORNING NURSE. PATIENT ON SEDATED WITH VERSED AND FENTANYL, RASS -2 NOTED. SPONTANEOUSLY OPEN HER EYES. TRACH TO VENT WITH SETTING AC MODE FIO2 24%, VT 450, RATE 16, PEEP 5. NO ACUTE RESPIRATORY DISTRESS NOTED. ST ON MONITOR. G TUBE TO TUBE FEEDING WITH GLUCERNA 1.2 20ML/HR WITH FWF 100ML Q4, RESIDUAL LESS THAN 10 CC NOTED. PLACEMENT CHECKED. BILATERAL SOFT WRIST RESTRAINT FOR SAFETY. PICC LINE TO RIGHT UPPER ARM WITH FENTANYL 1.5MCG/KG/HR=10.2ML/HR WITH DRY WEIGHT 68KG, VERSED 3MG/HR, AND D5 1/2NS 50ML/HR. URIOSTEGUI CATH IN PLACE WITH CLEAR LIGHT RED COLOR URINE NOTED. ULCER TO RIGHT LOWER LEG WITH CHAI BANDAGE. BED IN LOW POSITION. CALL LIGHT WITHIN REACH. WILL CONTINUE TO MONITOR.
--- NOTE | 2019-05-14 19:50 | NUR ---
NOTIFIED TO DR. MADDOX ABOUT HEMATURIA. DR. MADDOX AT BEDSIDE TO CHECK PATIENT. RECEIVED HOLD HEPARIN SUB Q. WILL CONTINUE TO MONITOR.
--- NOTE | 2019-05-14 20:00 | NUR ---
INCREASED TUBE FEEDING TO 30ML/HR. RESIDUAL CHECKED. TOLERATE WELL.
[2019-05-14] MEDS: NYSTATIN/TRIAMCINOLONE CRM 15 GM TUBE TP SCH (20:39)
[2019-05-14] MEDS: ATORVASTATIN 80 MG TAB PO SCH (20:39)
--- NOTE | 2019-05-14 20:50 | NUR ---
BS CHECKED 69 NOTED. NOTIFIED TO AND RECEIVED ORDER TO HOLD LANTUS FOR 2100.
[2019-05-14] MEDS: INSULIN LANTUS 100 UNITS/ML 10 ML VIAL SUBQ SCH (20:54)
--- NOTE | 2019-05-14 23:00 | NUR ---
PATIENT TOLERATE WELL WITH VENT, NO ACUTE RESPIRATORY DISTRESS NOTED. RESIDUAL CHECKED LESS THAN 10CC NOTED. WILL CONTINUE TO MONITOR.
[2019-05-15] VITALS (104 sets, daily range): BP systolic 76–182; BP diastolic 41–118
[2019-05-15] MEDS: MORPHINE SULFATE 2 MG/ML SYR IVP PRN ×2 (01:04→04:34)
[2019-05-15] MEDS: HYDRAGUARD CREAM TP SCH ×2 (01:05→12:25)
[2019-05-15] MEDS: Z-GUARD PASTE TP SCH ×2 (01:06→12:25)
--- NOTE | 2019-05-15 02:00 | NUR ---
INCREASED TUBE FEEDING TO 40ML/HR, RESIDUAL CHECKED LESS THAN 10CC NOTED. WILL CONTINUE TO MONITOR.
--- NOTE | 2019-05-15 04:00 | NUR ---
PATIENT RASS -1 WITH VERSED AND FENTANYL DRIP, TOLERATED WELL WITH VENT AND TUBE FEEDING, NO ACUTE DISTRESS NOTED. WILL CONTINUE TO MONITOR.
[2019-05-15] MEDS: DEXT 5% / NACL 0.45% 1,000 ML IV SCH (04:33)
[2019-05-15] MEDS: CLINDAMYCIN 600 MG in DEXTROSE 5% 50 ML IV SCH ×3 (04:33→21:10)
[2019-05-15] MEDS: methylPREDNISolone SS 40 MG/ML VIAL IVP SCH ×3 (04:34→21:10)
[2019-05-15 05:54] LABS: HEMATOCRIT 26.3 % (36-48); MEAN CORPUSCULAR HEMOGLOBIN 24 pg (27-31); MEAN CORPUSCULAR HGB CONC 30 g/dL (33-37); MEAN CORPUSCULAR VOLUME 78.8 fL (80-94); PLATELET COUNT (AUTO) 254 K/uL (140-450); RED BLOOD CELL COUNT(AUTO) 3.34 MIL/uL (4.20-5.40); RED CELL DISTRIBUTION WIDTH 19.4 % (11.6-13.7)
[2019-05-15 06:23] LABS: ANION GAP 10.8 (8-16); CARBON DIOXIDE 27.1 mmol/L (21-32); POTASSIUM 3.9 mmol/L (3.5-5.1)
[2019-05-15 06:24] LABS: CREATININE 0.5 mg/dL (0.6-1.3)
[2019-05-15] MEDS: BLOOD GLUCOSE MONITORING 1 DEV DEV FS SCH ×4 (06:32→21:09)
--- NOTE | 2019-05-15 06:32 | NUR ---
BS 110. NO INSULIN COVERAGE NEEDED.
[2019-05-15] MEDS: ALBUTEROL SULFATE/IPRATROPIU 3 ML SOL IH SCH ×3 (06:40→19:16)
[2019-05-15 06:41] LABS: MAGNESIUM 2.3 mg/dL (1.8-2.4); PHOSPHORUS 3.8 mg/dL (2.5-4.9)
[2019-05-15] MEDS: BUDESONIDE 0.5 MG/2 ML NEBU INH SCH ×2 (06:41→19:16)
[2019-05-15 06:47] LABS: WHITE BLOOD COUNT (AUTO) 22.4 K/uL (4.8-10.8)
[2019-05-15 06:55] LABS: LYMPHOCYTES % (MANUAL) 1 % (20-46); MONOCYTES % (MANUAL) 3 % (5-12)
--- NOTE | 2019-05-15 07:15 | NUR ---
RECEIVED BEDSIDE REPORT FROM CATTLE TESTER NURSE, PT IS SEDATED, RASS +1, RESTLESS, PERRL, UNABLE TO FOLLOW COMMANDS, NO S/S OF DISTRESS, TRACH TO VENT WITH FIO2 24, VT 450, R 16, PEEP 5, CLEAR LUNG SOUNDS TIFF. ST ON CROP NUTRITION SCIENTIST, CAP REFILL <2 SEC, SOFT ABDOMEN WITH ACTIVE BOWEL SOUNDS, GT IN PLACE, PATENT, FEEDING WITH GLUCERNA 1.2 AT 40 ML/HR, 5ML OF RESIDUALS, URIOSTEGUI CATHETER IN PLACE WITH HEMATURIA NOTED, MD AWARE, ABLE TO MOVE ALL EXTREMITIES, SOFT RESTRAINS PLACED ON TIFF. WRIST FOR SAFETY, PICC LINE TO DAISY, PATENT, RUNNING D5 1/2 NS AT 50 ML/HR, VERSED AT 3 MG/HR, AND FENTANYL AT 1 MCG/KG/HR. SKIN IS WARM AND DRY TO TOUCH, OPEN WOUND PRESENT (SEE WOUND ASSESSMENT), HOB ELEVATED TO 30 DEGREES, SAFETY MEASURES IN PLACE, WILL CONTINUE TO MONITOR.
--- NOTE | 2019-05-15 08:00 | NUR ---
PATIENT IS STILL RESTLESSNESS, MOVING AROUND IN BED, ORAL CARE PROVIDED, POSITION CHANGED FOR OFF LOAD PRESSURE, DR. LYNN CAME IN TO SEE PATIENT AT BEDSIDE, UPDATED PATIENT'S CONDITION, WILL FOLLOW UP WITH ORDERS.
--- NOTE | 2019-05-15 09:00 | NUR ---
SCHEDULED MEDICATION GIVEN, PATIENT TOLERATED WELL.
[2019-05-15] MEDS: FERROUS SULFATE 300 MG/5 ML UDC NG SCH (09:08)
[2019-05-15] MEDS: LACTOBACILLUS RHAMNOSUS GG 1 EACH CAP PO SCH (09:08)
[2019-05-15] MEDS: ASPIRIN 81 MG TAB.CHEW PO SCH (09:08)
[2019-05-15] MEDS: PANTOPRAZOLE 40 MG INJ VIAL IVP SCH (09:08)
[2019-05-15] MEDS: LEVOFLOXACIN 500 MG/D5W PREMIX 100 ML IV SCH (09:09)
[2019-05-15] MEDS: NYSTATIN/TRIAMCINOLONE CRM 15 GM TUBE TP SCH ×2 (09:09→21:11)
[2019-05-15] MEDS: ASCORBIC ACID 500 MG/5 ML ORASYR GT SCH (09:09)
[2019-05-15] MEDS: fentaNYL 1 MG in NACL 0.9% 80 ML IV PRN ×3 (09:23→22:10)
[2019-05-15] MEDS: MIDAZOLAM MDV 100 MG in NACL 0.9% 80 ML IV PRN ×2 (09:24→21:48)
--- NOTE | 2019-05-15 10:00 | NUR ---
NO S/S OF DISTRESS, VSS, FLACC 0, POSITION CHANGED FOR OFF LOAD PRESSURE.
[2019-05-15] MEDS: NOREPINEPHRINE 4 MG in DEXTROSE 5% 250 ML IV PRN (11:36)
[2019-05-15] MEDS: INSULIN LISPRO SLIDING SCALE 100 UNITS/ML VIAL SUBQ PRN ×3 (11:37→21:30)
--- NOTE | 2019-05-15 12:00 | NUR ---
PATIENT'S BP DROPPING, LEVOPHED STARTED ORDERED, ORAL CARE PROVIDED, POSITION CHANGED FOR OFF LOAD PRESSURE.
[2019-05-15] MEDS: SKINTEGRITY HYDROGEL TP SCH (12:25)
--- NOTE | 2019-05-15 14:00 | NUR ---
NO S/S OF DISTRESS, VSS, FLACC 0, POSITION CHANGED FOR OFF LOAD PRESSURE.
--- NOTE | 2019-05-15 16:00 | NUR ---
PM CARE AND ORAL CARE PROVIDED, URIOSTEGUI CATHETER CARE PROVIDED, PATIENT IS SEDATED, RASS -3, POSITION CHANGED FOR OFF LOAD PRESSURE.
--- NOTE | 2019-05-15 18:00 | NUR ---
US AT BEDSIDE.
--- NOTE | 2019-05-15 19:10 | NUR ---
REPORT RECEIVED FROM AM NURSE AT BEDSIDE. PT IN STABLE CONDITION. AAOX1-2 DUE TO PATIENT BEING SEDATED. ORDER FOR RASS-1 FOR BOTH VERSED AND FENTANYL. FLACC 0. NO SOB TRACH TO VENT. VENT SETTINGS FIO2 24%, VT 450, RR 15, PEEP 5. AFEBRILE. PT IS BEDBOUND FOR SEDATION. PT HAS URIOSTEGUI, PT HAS FEEDINGS TO PEG TUBE. GLUCERNA 1.2@65ML/HR WITH 100ML H20 FLUSH Q4H. RESIDUAL OF 80ML. PT TOLERATING FEEDING WELL AND WILL CONTINUE ORDERED WITH FEEDING. PT ON SOFT WRIST RESTRAINTS. RENEWAL WILL BE 05/16/19@0838. IV SITE R PICC DOUBLE LUMEN RUNNING FENTANYL@13.6ML/HR OR 2MCG/KG/MIN PATENT AND INTACT WITH Y PORT CONNECTED TO VERSED@7ML/HR OR 7MG/HR PATENT AND INTACT. SECOND LUMEN RUNNING D51/2NS@50ML/HR PATENT AND INTACT. NO LONGER RUNNING LEVO. SKIN WARM, DRY, AND NOT INTACT DUE TO BILATERAL ARM SKIN TEARS AND RIGHT LUKE SKIN TEAR. BED LOCKED IN LOW POSITION. SAFETY PRECAUTION IN PLACE. ALL NEEDS MET AT THIS TIME.
--- NOTE | 2019-05-15 20:00 | NUR ---
LEVO PUT ON HOLD DUE TO SBP>90 AND MAP>60. WILL CONTINUE TO MONITOR.
--- NOTE | 2019-05-15 20:00 | NUR ---
VAP ORAL CARE GIVEN.
[2019-05-15] MEDS: ATORVASTATIN 80 MG TAB PO SCH (21:10)
--- NOTE | 2019-05-15 21:10 | NUR ---
CLEOCIN HUNG AND RUNNING. SOLUMEDROL GIVEN IVP. LIPITOR CRUSHED UP AND GIVEN THROUGH GTUBE. MYCOLOG APPLIED. BS 333. 8 UNITS OF HUMALOG GIVEN SUBQ. 60 UNITS OF LANTUS GIVEN SUBQ.
[2019-05-15] MEDS: INSULIN LANTUS 100 UNITS/ML 10 ML VIAL SUBQ SCH (21:21)
--- NOTE | 2019-05-15 21:48 | NUR ---
VERSED NEW BAG HUNG AND RUNNING. 0 WASTE.
--- NOTE | 2019-05-15 22:10 | NUR ---
FENTANYL NEW BAG HUNG AND RUNNING.
[2019-05-16] VITALS (80 sets, daily range): BP systolic 79–199; BP diastolic 45–139
--- NOTE | 2019-05-16 | NUR ---
VAP ORAL CARE GIVEN.
[2019-05-16] MEDS: DEXT 5% / NACL 0.45% 1,000 ML IV SCH (00:55)
[2019-05-16] MEDS: MORPHINE SULFATE 2 MG/ML SYR IVP PRN ×2 (01:16→22:33)
--- NOTE | 2019-05-16 01:16 | NUR ---
MORPHINE GIVEN FOR 7/10 PAIN AT TRACH SITE. PT TOLERATED WELL.
[2019-05-16] MEDS: Z-GUARD PASTE TP SCH ×2 (01:23→14:05)
[2019-05-16] MEDS: HYDRAGUARD CREAM TP SCH ×2 (01:23→13:00)
--- NOTE | 2019-05-16 01:23 | NUR ---
ZGUARD AND HYDRAGUARD APPLIED.
--- NOTE | 2019-05-16 04:00 | NUR ---
PT GIVEN BED BATH. PT STILL AGITATED DURING. ORAL CARE GIVEN. PT UNABLE TO HELP TURN OR FOLLOW COMMANDS.
[2019-05-16] MEDS: methylPREDNISolone SS 40 MG/ML VIAL IVP SCH ×3 (04:39→20:53)
[2019-05-16] MEDS: CLINDAMYCIN 600 MG in DEXTROSE 5% 50 ML IV SCH ×3 (04:39→20:52)
--- NOTE | 2019-05-16 04:39 | NUR ---
CLEDEONDRE MEDINA AND JERMAINE. SOLUMEDROL GIVEN IVP. PT TOLERATED WELL.
[2019-05-16 06:49] LABS: HEMATOCRIT 23.6 % (36-48); HEMOGLOBIN 7.3 g/dL (12.0-16.0); MEAN CORPUSCULAR HEMOGLOBIN 24 pg (27-31); MEAN CORPUSCULAR HGB CONC 31 g/dL (33-37); PLATELET COUNT (AUTO) 215 K/uL (140-450); RED BLOOD CELL COUNT(AUTO) 2.99 MIL/uL (4.20-5.40); RED CELL DISTRIBUTION WIDTH 19.3 % (11.6-13.7)
[2019-05-16] MEDS: BLOOD GLUCOSE MONITORING 1 DEV DEV FS SCH ×4 (07:09→20:48)
[2019-05-16] MEDS: ALBUTEROL SULFATE/IPRATROPIU 3 ML SOL IH SCH ×3 (07:10→19:12)
[2019-05-16] MEDS: INSULIN LISPRO SLIDING SCALE 100 UNITS/ML VIAL SUBQ PRN (07:10)
--- NOTE | 2019-05-16 07:10 | NUR ---
BS 181. 2 UNITS OF HUMALOG GIVEN. PT TOLERATED WELL.
[2019-05-16] MEDS: BUDESONIDE 0.5 MG/2 ML NEBU INH SCH ×2 (07:11→19:12)
[2019-05-16 07:17] LABS: ANION GAP 9.2 (8-16); CARBON DIOXIDE 28.5 mmol/L (21-32); CREATININE 0.6 mg/dL (0.6-1.3); POTASSIUM 4.7 mmol/L (3.5-5.1)
[2019-05-16 07:19] LABS: MAGNESIUM 2.2 mg/dL (1.8-2.4); PHOSPHORUS 3.2 mg/dL (2.5-4.9)
--- NOTE | 2019-05-16 07:20 | NUR ---
REPORT GIVEN TO AM NURSE AT BEDSIDE. PT IN STABLE CONDITION.
--- NOTE | 2019-05-16 08:00 | NUR ---
ON DUTY RECEIVED THIS PT ON LACHELLE, AC16-24%FIO2-450-5. PT WAS SEDATED BY VERSED 5MG/ML AND FENTANYL 1.5 MCG. PT STILL AGITATED. VS STABLE. PT WAS NO F/C. BRUISES CAN BE SEEN IN INNER THIGH BILATERALLY.
[2019-05-16] MEDS ORDERED: LORazepam 1 MG TAB PO PRN (08:20)
[2019-05-16] MEDS ORDERED: QUEtiapine FUMARATE 25 MG TAB PO SCH (08:31)
[2019-05-16 08:36] LABS: LYMPHOCYTES % (MANUAL) 4 % (20-46); MONOCYTES % (MANUAL) 5 % (5-12)
[2019-05-16] MEDS: ASPIRIN 81 MG TAB.CHEW PO SCH (08:51)
[2019-05-16] MEDS: ASCORBIC ACID 500 MG/5 ML ORASYR GT SCH (08:51)
[2019-05-16] MEDS: LACTOBACILLUS RHAMNOSUS GG 1 EACH CAP PO SCH (08:52)
[2019-05-16] MEDS: FERROUS SULFATE 300 MG/5 ML UDC NG SCH (08:52)
[2019-05-16] MEDS: PANTOPRAZOLE 40 MG INJ VIAL IVP SCH (08:53)
[2019-05-16] MEDS: LEVOFLOXACIN 500 MG/D5W PREMIX 100 ML IV SCH (08:54)
[2019-05-16] MEDS: NYSTATIN/TRIAMCINOLONE CRM 15 GM TUBE TP SCH ×2 (08:55→21:00)
[2019-05-16] MEDS ORDERED: FUROSEMIDE 20 MG/2 ML VIAL IVP SCH (09:10)
[2019-05-16] MEDS: NACL 0.9% 1,000 ML IV SCH (09:25)
--- NOTE | 2019-05-16 10:00 | NUR ---
MD ASSESSED PT AND ORDERED SERAQUEL NGT FOR AGITATION.
--- NOTE | 2019-05-16 12:00 | NUR ---
FENTANYL DRIP WAS TITRIPPED DOWN 1MCG FROM 1.5MCG. PT WAS PLANNED TO TITRIPPED DONW AND OFF THE DRIP THEN D/C TO SNF.
--- NOTE | 2019-05-16 12:36 | NUR ---
05/16/19 FOLLOW UP COMPLETED PLEASE REFER TO NUTRITION ASSESSMENT UNDER CARE ACTIVITY FOR ESTIMATED NUTRITIONAL NEEDS. 1. CONTINUE GLUCERNA 1.2 @65 ML/HR X 24 HR -THIS WILL PROVIDE 1875 KCAL, 93.6G PROTEIN, AND 1255 ML OF WATER; SUFFICIENT TO MEET 100% OF PATIENT'S DAILY ESTIMATED NUTRITIONAL NEEDS 2. CONTINUE VITAMIN C SUPPLEMENTATION FOR WOUND HEALING 3. CONTINUE FREE WATER FLUSH OF 100 ML Q4H 4. F/U 2-3 DAYS; HIGH RISK ANGELITA RICHTER RD
[2019-05-16] MEDS: SKINTEGRITY HYDROGEL TP SCH (13:00)
[2019-05-16] MEDS: fentaNYL 1 MG in NACL 0.9% 80 ML IV PRN (15:06)
--- NOTE | 2019-05-16 17:45 | NUR ---
PT REMAINS ON DOCUMENTED VENT SETTINGS. TRACH IS SECURE WITH SUTURES AND IS PATENT. VENT ALARMS REMAIN ON AND FUNCTIONING.
[2019-05-16] MEDS: MIDAZOLAM MDV 100 MG in NACL 0.9% 80 ML IV PRN (18:08)
--- NOTE | 2019-05-16 19:24 | NUR ---
RECEIVED PT FROM DAY SHIFT ON AC 16,450,+5,24%. VENT PLUGGED INTO RED OUTLET. BMV HANGED ONTO THE VENT. ALARMS AUDIBLE AND WORKING. TRACH IS SUTURED. PT IS ALERT AND IRRITABLE. WILL CONT TO MONITOR.
--- NOTE | 2019-05-16 19:30 | NUR ---
RECEIVED BEDSIDE REPORT FROM DAYSHIFT NURSE AND TOOK OVER CARE FOR PT. ASSESSMENT REVEALED PT IS NONVERBAL, BUT OPENS EYES TO NAME AND TACTILE STIMULUS. EYES PERRL 3MM W/ BRISK RETURN. PT HAS TRACHEOSTOMY TO VENT. AC FIO2 24% VT 450 RATE 16 PEEP 5. LUNG SOUNDS CLEAR THROUGHOUT ALL LOBES W/ SYMMETRICAL RISE AND FALL OF CHEST. S1 S2 HEARD. PT HAS GTUBE W/ NO RESIDUALS. BOWEL SOUNDS ARE ACTIVE. CONTINUOUS FEEDING GLUCERNA 1.2 65 ML W/ FWF 100 ML Q4HR. PT HAS PICC ON RUE. PICC LINE IS PATENT W/ NO SIGNS OF INFECTION. VERSED IS RUNNING AT 5 MG/HR, FENTANYL IS RUNNING AT 1 MCG/KG/HR. NS AT 50 ML/HR. PT HAS NON-BEHAVIORAL SOFT WRIST RESTRAINTS APPLIED. BILATERAL RADIAL PULSES ARE PRESENT, REGULAR. CAP REFILL <3 SEC. PT DOES HAVE +2 PITTING EDEMA OF THE RIGHT HAND. PT HAS SKIN TEARS ON BOTH WRISTS THAT ARE CURRENTLY DRESSED. BOTH WRIST DRESSINGS REMAIN DRY AND INTACT. URIOSTEGUI CATHETER IS NOTED W/ DARK YELLOW URINE W/ SEDIMENTS. PT HAS BRUISES ON BOTH SIDES OF INNER THIGHS. RLE HAS OPEN WOUND LATERALLY THAT IS CURRENTLY DRESSED. DRESSING REMAINS DRY AND INTACT. SCD CURRENTLY APPLIED ON LLE. REST OF SKIN IS WARM AND DRY. BED IS LOCKED AND LOWEST POSITION, HOB 30 DEGREES, LIFE SAVING EQUIPMENT IS PLUGGED TO RED OUTLETS.
[2019-05-16] MEDS: ATORVASTATIN 80 MG TAB GT SCH (20:52)
[2019-05-16] MEDS: INSULIN LANTUS 100 UNITS/ML 10 ML VIAL SUBQ SCH (21:00)
--- NOTE | 2019-05-16 21:15 | NUR ---
HELD INSULIN LANTUS. BG 85. DR. COLON AWARE. NO NEW ORDERS AT THIS TIME. OBSERVE PT.
--- NOTE | 2019-05-16 22:30 | NUR ---
NOTIFIED DR MADDOX OF TACHYCARDIA HR 120S SINCE START OF SHIFT. BP 123/68. MD AWARE. NO NEW ORDERS @ THIS TIME
[2019-05-16] MEDS: LORazepam 1 MG TAB GT PRN (23:45)
[2019-05-17] VITALS (102 sets, daily range): BP systolic 56–186; BP diastolic 24–141
[2019-05-17] MEDS: Z-GUARD PASTE TP SCH ×2 (01:34→12:23)
[2019-05-17] MEDS: fentaNYL 1 MG in NACL 0.9% 80 ML IV PRN ×2 (01:34→21:15)
[2019-05-17] MEDS: HYDRAGUARD CREAM TP SCH ×2 (01:35→12:23)
[2019-05-17] MEDS: methylPREDNISolone SS 40 MG/ML VIAL IVP SCH ×3 (04:34→20:46)
[2019-05-17] MEDS: CLINDAMYCIN 600 MG in DEXTROSE 5% 50 ML IV SCH ×2 (04:34→12:22)
[2019-05-17] MEDS: NACL 0.9% 1,000 ML IV SCH (04:49)
--- NOTE | 2019-05-17 05:00 | NUR ---
pt remains on documented settings. vent plugged into red outlet. bmv at bedsides. alarms audible and working. trach is intact and sutured. pt trach is slightly bloody. will cont to monitor
--- NOTE | 2019-05-17 05:00 | NUR ---
RT SAW PT, PERFORMED TRACHEOSTOMY CARE
--- NOTE | 2019-05-17 06:00 | NUR ---
DR ANDRADE CAME BY AND SEEN PT.
[2019-05-17 06:27] LABS: HEMATOCRIT 23.2 % (36-48); HEMOGLOBIN 7.1 g/dL (12.0-16.0); MEAN CORPUSCULAR HEMOGLOBIN 24 pg (27-31); MEAN CORPUSCULAR HGB CONC 31 g/dL (33-37); MEAN CORPUSCULAR VOLUME 78.8 fL (80-94); PLATELET COUNT (AUTO) 215 K/uL (140-450); RED BLOOD CELL COUNT(AUTO) 2.94 MIL/uL (4.20-5.40); RED CELL DISTRIBUTION WIDTH 20.1 % (11.6-13.7)
[2019-05-17 07:18] LABS: LYMPHOCYTES % (MANUAL) 2 % (20-46); MONOCYTES % (MANUAL) 2 % (5-12)
[2019-05-17 07:24] LABS: ANION GAP 10.2 (8-16); CARBON DIOXIDE 31.6 mmol/L (21-32); CREATININE 0.5 mg/dL (0.6-1.3); POTASSIUM 4.8 mmol/L (3.5-5.1)
[2019-05-17] MEDS: BUDESONIDE 0.5 MG/2 ML NEBU INH SCH ×2 (07:29→19:48)
[2019-05-17] MEDS: ALBUTEROL SULFATE/IPRATROPIU 3 ML SOL IH SCH ×3 (07:29→19:48)
--- NOTE | 2019-05-17 07:29 | NUR ---
RECEIVED ON A LagiarSCAPE R860 VENTILATOR PLUGGED INTO RED OUTLET TOLERATING WELL WITHOUT ADVERSE REACTIONS NOTED TO A PORTEX DCT #8 AIRWAY SECURED WITH A MINH TRACH TIE TRACH PLATE REMAINS SUTURED TO SKIM CUFF PRESSURE CHECKED NOTED AMBU BAG NOTED AT BEDSIDE GOOD CHEST RISE AIRWAY PATENT
[2019-05-17] MEDS: BLOOD GLUCOSE MONITORING 1 DEV DEV FS SCH ×4 (07:30→20:47)
--- NOTE | 2019-05-17 07:30 | NUR ---
RECEIVED BEDSIDE REPORT FROM DIRECTOR GLOBAL INTELLIGENCE RN. PT'S EYES CLOSED, FOLLOWS SIMPLE COMMANDS, OPENS EYES WHEN ASKED TO BUT RESTLESS WHEN STIMULATED BY VOICE AND UNABLE TO MAKE NEEDS KNOWN. FLACC 0. TEMP 99.9. SINUS TACHYCARDIA ON MONITOR. S1 S2 HEARD. TRACH TO VENT W/ SETTINGS: A/C VC FIO2 24%, VT 450, RR 16, PEEP 5. LUNGS SOUND CLEAR BILATERALLY. BREATHING EVEN AND UNLABORED. GT IN PLACE, RECEIVING TUBE FEEDING GLUCERNA 1.2 AT 65 ML//HR WITH FWF 100 ML Q4H. NO RESIDUALS NOTED. BOWEL SOUNDS ACTIVE X 4 QUADRANTS. PICC LINE TO RIGHT UPPER ARM ASYMPTOMATIC, PATENT AND INTACT. PT IS ON VERSED DRIP AT 4 MG/HR, FENTANYL DRIP AT 1 MCG/KG/HR (DRY WEIGHT 68 KG) AND IVF NS AT 50 ML/HR. URIOSTEGUI CATH IN PLACE DRAINING URINE TO GRAVITY, HEMATURIA NOTED. BRUISES TO INNER THIGH, ABDOMEN AND RIGHT SHOULDER, SKIN TEARS TO BL WRISTS, OPEN SKIN TO RIGHT LUKE NOTED, DRESSING C/D/I. HOB 30 DEGREES. BED IN LOWEST POSITION LOCKED. CALL LIGHT WITHIN REACH. WILL CONTINUE TO MONITOR.
--- NOTE | 2019-05-17 07:50 | NUR ---
DR. RODRIGUEZ AND RESIDENT GROUP IN TO SEE PT. WILL FOLLOW UP ON ORDERS.
[2019-05-17] MEDS ORDERED: QUEtiapine FUMARATE 25 MG TAB PO SCH (08:00)
--- NOTE | 2019-05-17 08:00 | NUR ---
PT SEEN AND EXAMINED BY DR. LYNN. WILL FOLLOW UP WITH ANY NEW ORDERS.
--- NOTE | 2019-05-17 08:15 | NUR ---
PT'S DAUGHTER IN THE UNIT, SPEAKING WITH DR. LYNN ON PHONE.
[2019-05-17] MEDS: INSULIN LISPRO SLIDING SCALE 100 UNITS/ML VIAL SUBQ PRN ×4 (08:30→20:50)
[2019-05-17] MEDS: LEVOFLOXACIN 500 MG/D5W PREMIX 100 ML IV SCH (08:53)
[2019-05-17] MEDS: LOSARTAN 25 MG TAB GT SCH (08:53)
[2019-05-17] MEDS: ASCORBIC ACID 500 MG/5 ML ORASYR GT SCH (08:53)
[2019-05-17] MEDS: PANTOPRAZOLE 40 MG INJ VIAL IVP SCH (08:53)
[2019-05-17] MEDS: LACTOBACILLUS RHAMNOSUS GG 1 EACH CAP PO SCH (08:54)
[2019-05-17] MEDS: FERROUS SULFATE 300 MG/5 ML UDC NG SCH (08:54)
[2019-05-17] MEDS: DOCUSATE 100 MG/10 ML UDC GT SCH (08:54)
[2019-05-17] MEDS: QUEtiapine FUMARATE 25 MG TAB GT SCH (08:54)
[2019-05-17] MEDS: NYSTATIN/TRIAMCINOLONE CRM 15 GM TUBE TP SCH ×2 (08:55→20:47)
[2019-05-17] MEDS ORDERED: ASPIRIN 81 MG TAB.CHEW GT SCH (09:00)
--- NOTE | 2019-05-17 09:30 | NUR ---
MEDICATIONS ADMINISTERED ORDERED. PT TOLERATED WELL.
[2019-05-17] MEDS: NOREPINEPHRINE 4 MG in DEXTROSE 5% 250 ML IV PRN (10:44)
--- NOTE | 2019-05-17 11:24 | NUR ---
NO DISTRESS NOTED GOOD CHEST RISE AND AERATION THROUGHOUT BILATERAL LUNG SANDERS AIRWAY PATENT
--- NOTE | 2019-05-17 12:00 | NUR ---
VAP ORAL CARE GIVEN. REPOSITIONED FOR COMFORT AND PRESSURE OFF LOAD. PT TOLERATED WELL.
[2019-05-17] MEDS: SKINTEGRITY HYDROGEL TP SCH (12:23)
--- NOTE | 2019-05-17 14:28 | NUR ---
GOOD CHEST RISE DEEP TRACHEAL SUCTION FOR SMALL SCATTERED THICK DARK BROWN SECRETIONS AIRWAY PATENT
--- NOTE | 2019-05-17 15:02 | NUR ---
PT STILL ON FENTANYL AND VERSED DRIPS, RASS -1. FLACC 0. TOLERATING TUBE FEEDING, RESIDUALS 5 ML AT THIS TIME. TRACH TO VENT. URIOSTEGUI CATH DRAINING DARK YELLOW URINE. SAFETY PRECAUTIONS IN PLACE.
--- NOTE | 2019-05-17 17:01 | NUR ---
DR. PENA IN TO SEE AND EXAMINE PT. WILL FOLLOW UP ON ORDERS.
--- NOTE | 2019-05-17 17:27 | NUR ---
RESTING WELL IRRITABLE ON OCCASION GOOD CHEST RISE AND AERATION THROUGHOUT BILATERAL LUNG SANDERS AIRWAY PATENT
--- NOTE | 2019-05-17 18:47 | NUR ---
DR. MADDOX IN TO SEE AND EXAMINE PT. WILL FOLLOW UP ON ORDERS.
--- NOTE | 2019-05-17 19:30 | NUR ---
ASSUMED CARE OF PT.INITIAL ASSESSMENT COMPLETED.PT SEDATED; ON FENTANYL DRIP AT 0.5MCG/KG/MIN (3.4ML/HR)AND VERSED DRIP AT 3ML/HR. ST NOTED ON MONITOR.TRACH TO VENT FIO2 24% TV450 AC 16 PEEP 5.W/PICC LINE TO MIKY INTACT.W/GTUBE TO ABDOMEN.PT ON GTUBE FEEDING GLUCERNA 1.2 AT 65ML/HR.NO RESIDUAL NOTED.W/URIOSTEGUI CATHETER TO BSD, HEMATURIA NOTED.W/MULTIPLE BRUISING ALSO NOTED ALL OVER THE BODY.FLACC 0.
--- NOTE | 2019-05-17 19:30 | NUR ---
PT TRACH TO VENT ON ACVC SETTINGS, FIO2 24%, TV 450, RATE 16, PEEP 5. IV SITE, DAISY PICC LINE, INFUSING VERSED 3MG, AND FENTANYL 0.5MCG/KG/MIN. DRY WEIGHT 68 KG. GT TUBE TO FEEDING GLUCERNA 1.2. URIOSTEGUI CATHETER IN PLACE. SKIN WARM AND DRY WOUNDS NOTED, SEE WOUND ASSESSMENT. HOB 30 DEGREES, BED LOCKED IN LOWEST POSITION.
--- NOTE | 2019-05-17 19:30 | NUR ---
REPORT GIVEN TO INDUSTRIAL REFRIGERATION MECHANIC RN FOR CONTINUITY OF CARE. NO SIGNS OF DISTRESS NOTED AT THIS TIME.
[2019-05-17] MEDS: ATORVASTATIN 80 MG TAB GT SCH (20:46)
[2019-05-17] MEDS: INSULIN LANTUS 100 UNITS/ML 10 ML VIAL SUBQ SCH (20:49)
--- NOTE | 2019-05-17 21:00 | NUR ---
BS 157; PHONE CALL TO DR MADDOX; PT ON LANTUS 60 UNITS; PHYSICIAN SAID TO HOLD LANTUS AND GIVE THE SLIDING INSULIN
[2019-05-17] MEDS: MIDAZOLAM MDV 100 MG in NACL 0.9% 80 ML IV PRN (21:34)
--- NOTE | 2019-05-17 22:00 | NUR ---
PTS CONDITION REMAINS UNCHANGED.SECRETIONS SUCTIONED NEEDED.FLACC 0.REPOSITIONED.
[2019-05-18] VITALS (99 sets, daily range): BP systolic 62–178; BP diastolic 21–119
--- NOTE | 2019-05-18 | NUR ---
ORAL CARE USING VAP KIT RENDERED.PT STILL ON VERSED AND FENTANYL DRIPS. NO SOB /TRACH TO VENT.FLACC 0
--- NOTE | 2019-05-18 00:02 | NUR ---
TRACH CARE DONE FOR PATIENT
[2019-05-18] MEDS: Z-GUARD PASTE TP SCH ×2 (00:41→13:07)
[2019-05-18] MEDS: HYDRAGUARD CREAM TP SCH ×2 (00:41→13:06)
--- NOTE | 2019-05-18 01:50 | NUR ---
Z GUARD AND HYDRA GUARD APPLIED ORDERED.
[2019-05-18] MEDS: NACL 0.9% 1,000 ML IV SCH ×2 (01:52→23:51)
--- NOTE | 2019-05-18 04:00 | NUR ---
ORAL CARE DONE.FLACC 0.STILL ON FENTANYL AND VERSED DRIPS; REPOSITIONED.
[2019-05-18] MEDS: methylPREDNISolone SS 40 MG/ML VIAL IVP SCH ×3 (04:51→21:00)
--- NOTE | 2019-05-18 06:00 | NUR ---
DR HANDLEY IN THE UNIT; UPDATED ON PTS PRESENT CONDITION.NO ORDERS RECEIVED.PHYSICIAN MADE AWARE BLOOD PRESSURE NOT ADMIN; PT MOVING EXTREMITIES WHILE BP READING. SAID ITS OK
[2019-05-18] MEDS: ALBUTEROL SULFATE/IPRATROPIU 3 ML SOL IH SCH ×3 (06:29→18:48)
[2019-05-18] MEDS: BUDESONIDE 0.5 MG/2 ML NEBU INH SCH ×2 (06:30→18:48)
--- NOTE | 2019-05-18 06:30 | NUR ---
rec'd pt on carescape vent settings ac 16 vt 450 peep 5 fio2 24 % alarms on and audible and ambu bag at side of vent and vent is plugged into red outlet, i\l tx given with pulmicort 0.5mg with no adverse reaction post tx b\s are rhonchi bilaterally, sxn pt small amt secretions, pt is trach with portex 8 and pt is very agitated
[2019-05-18 06:39] LABS: BASOPHILS % (AUTO) 0.1 % (0.0-2.0); HEMATOCRIT 22.9 % (36-48); HEMOGLOBIN 7.1 g/dL (12.0-16.0); LYMPHOCYTES # (AUTO) 0.6 K/uL (2.5-16.5); LYMPHOCYTES % (AUTO) 2.6 % (20.5-51.1); MEAN CORPUSCULAR HEMOGLOBIN 25 pg (27-31); MEAN CORPUSCULAR HGB CONC 31 g/dL (33-37); MEAN CORPUSCULAR VOLUME 79.6 fL (80-94); MONOCYTES # (AUTO) 1.6 K/uL (0.8-1.0); MONOCYTES % (AUTO) 6.7 % (1.7-9.3); NEUTROPHILS # (AUTO) 21.2 K/uL (1.8-7.7); NEUTROPHILS % (AUTO) 90.6 % (42.2-75.2); PLATELET COUNT (AUTO) 212 K/uL (140-450); RED BLOOD CELL COUNT(AUTO) 2.88 MIL/uL (4.20-5.40); RED CELL DISTRIBUTION WIDTH 20.9 % (11.6-13.7); WHITE BLOOD COUNT (AUTO) 23.4 K/uL (4.8-10.8)
[2019-05-18 06:50] LABS: ANION GAP 10.6 (8-16); CARBON DIOXIDE 30.6 mmol/L (21-32); CREATININE 0.5 mg/dL (0.6-1.3); POTASSIUM 4.2 mmol/L (3.5-5.1)
[2019-05-18] MEDS: BLOOD GLUCOSE MONITORING 1 DEV DEV FS SCH ×4 (07:30→20:59)
--- NOTE | 2019-05-18 07:30 | NUR ---
RECEIVED BEDSIDE REPORT FROM G[employer]ESSING [employer]ANT OPERATOR RN. PT DOES NOT FOLLOW SIMPLE COMMANDS AT THIS TIME. FLACC 0. RASS -1, AFEBRILE. NORMAL SINUS RHYTHM ON MONITOR. S1 S2 HEARD. TRACH TO VENT W/ SETTINGS: A/C VC FIO2 24%, VT 450, RR 16, PEEP 5. BREATHING EVEN AND UNLABORED. GT TO TUBE FEEDING GLUCERNA 1.2 AT 65 ML//HR WITH FWF 100 ML Q4H. NO RESIDUALS NOTED. BOWEL SOUNDS ACTIVE X 4 QUADRANTS. PICC LINE TO RIGHT UPPER ARM PATENT AND INTACT, RUNNING VERSED DRIP AT 3 MG/HR, FENTANYL DRIP AT 0.5 MCG/KG/HR (DRY WEIGHT 68 KG) AND IVF NS AT 50 ML/HR. URIOSTEGUI CATH IN PLACE DRAINING YELLOW URINE WITH SEDIMENTS TO GRAVITY. BRUISES TO INNER THIGH, ABDOMEN AND RIGHT SHOULDER, SKIN TEARS TO BL WRISTS, OPEN SKIN TO RIGHT LUKE AND LEFT BUTTOCK DRESSING CLEAN, DRY AND INTACT. PULSES PALPABLE TO ALL EXTREMITIES. CAP REFILL < 2 SEC. HOB 30 DEGREES. BED IN LOWEST POSITION LOCKED. CALL LIGHT WITHIN REACH. WILL CONTINUE TO MONITOR.
--- NOTE | 2019-05-18 07:30 | NUR ---
REPORT GIVEN TO BRENDA LAN. PTS CONDITION REMAINS UNCHANGED.NO SOB NOTED.RESTRAINTS ON ; NO INJURIES NOTED
[2019-05-18] MEDS: FERROUS SULFATE 300 MG/5 ML UDC NG SCH (08:11)
[2019-05-18] MEDS: ASCORBIC ACID 500 MG/5 ML ORASYR GT SCH (08:11)
[2019-05-18] MEDS: DOCUSATE 100 MG/10 ML UDC GT SCH (08:11)
[2019-05-18] MEDS: QUEtiapine FUMARATE 25 MG TAB GT SCH (08:12)
[2019-05-18] MEDS: LACTOBACILLUS RHAMNOSUS GG 1 EACH CAP PO SCH (08:12)
[2019-05-18] MEDS: NYSTATIN/TRIAMCINOLONE CRM 15 GM TUBE TP SCH ×2 (08:12→22:12)
[2019-05-18] MEDS: LOSARTAN 25 MG TAB GT SCH ×2 (08:12→09:00)
[2019-05-18] MEDS: INSULIN LISPRO SLIDING SCALE 100 UNITS/ML VIAL SUBQ PRN ×3 (08:13→18:12)
[2019-05-18] MEDS: PANTOPRAZOLE 40 MG INJ VIAL IVP SCH (08:14)
--- NOTE | 2019-05-18 08:45 | NUR ---
DR. LYNN IN TO SEE PT. WILL FOLLOW UP ON ORDERS.
--- NOTE | 2019-05-18 09:00 | NUR ---
DR. MALLOY MADE AWARE THAT PT'S BLOOD PRESSURE DROPPED AFTER GETTING SEROQUEL, LOSARTAN HELD AND LEVOPHED STARTED. BP 70/36 AT THIS TIME.
--- NOTE | 2019-05-18 11:04 | NUR ---
05/18/19 RD FOLLOW UP COMPLETED PLEASE REFER TO NUTRITION PROGRESS NOTE UNDER CARE ACTIVITY FOR ESTIMATED NUTRITION NEEDS. RD RECOMMENDATIONS: 1. CONTINUE GLUCERNA 1.2 @65 ML/HR X 24 HR -THIS WILL PROVIDE 1875 KCAL, 93.6G PROTEIN, AND 1255 ML OF WATER; SUFFICIENT TO MEET 100% OF PATIENT'S DAILY ESTIMATED NUTRITIONAL NEEDS. 2. CONTINUE VITAMIN C SUPPLEMENTATION FOR WOUND HEALING. 3. CONTINUE FREE WATER FLUSH OF 100 ML Q4H 4. F/U 2-3 DAYS; HIGH RISK HIRA ELENA MBA, RD
--- NOTE | 2019-05-18 12:10 | NUR ---
DR. HUERTA IN TO SEE PT. UPDATES GIVEN ON PT'S CONDITION. WILL FOLLOW UP ON ORDERS.
[2019-05-18] MEDS ORDERED: LEVOFLOXACIN 750 MG/D5W PREMIX 150 ML IV SCH (13:00)
[2019-05-18] MEDS: SKINTEGRITY HYDROGEL TP SCH (13:06)
[2019-05-18] MEDS: NOREPINEPHRINE 4 MG in DEXTROSE 5% 250 ML IV PRN (15:04)
--- NOTE | 2019-05-18 15:15 | NUR ---
DAUGHTER AT BEDSIDE. UPDATES GIVEN ON PT'S CONDITION.
--- NOTE | 2019-05-18 16:05 | NUR ---
VAP ORAL CARE GIVEN. TURNED AND REPOSITIONED. PT IS AFEBRILE. FLACC 0. RASS -1. WILL CONTINUE TO MONITOR.
--- NOTE | 2019-05-18 18:30 | NUR ---
PT'S MOTHER AND SISTER AT BEDSIDE. UPDATES GIVEN ON PT'S CONDITION. SAFETY PRECAUTIONS IN PLACE.
--- NOTE | 2019-05-18 18:57 | NUR ---
RECEIVED TRACH PT FROM AM SHIFT VENT SETTINGS; 16,450,+5,25%. VENT PLUGGED IN RED OUTLET; ALARMS SET AND AUDIBLE. PT IN NO APPARENT RESPIRATORY DISTRESS AT THIS TIME; HR 94, RR 21, SPO2 95% ON 25% FiO2, AND A COARSE BREATH SOUNDS ON THE LOWER BASES. HHN TX GIVEN ORDERED WITH NO ADVERSE REACTION. BVM AT BEDSIDE AND HOB > 30. FAMILY AT BEDSIDE. WILL CONTINUE TO MONITOR PT.
--- NOTE | 2019-05-18 19:14 | NUR ---
REPORT GIVEN TO SCREEN STRETCHER RN FOR CONTINUITY OF CARE. NO SIGNS OF DISTRESS NOTED AT THIS TIME.
--- NOTE | 2019-05-18 19:14 | NUR ---
REPORT RECEIVED FROM AM SHIFT RN. PT TRACH TO VENT ON ACVC SETTING, FIO2 24%, TV 450 RATE 16, PEEP 5. IV SITE DAISY PICC LINE. PT ON VERSED 3MG/MIN, FENTANYL 0.5 MCG/KG/MIN AND NS AT 50ML/HR. DRY WEIGHT 68KG. WOUNDS AND BRUISES, SEE WOUND ASSESSMENT. SKIN WARM AND DRY. GTUBE TO FEEDING, 50 ML RESIDUALS NOTED. URIOSTEGUI CATHETER IN PLACE. HOB 30 DEGREES. BED LOCKED IN LOWEST POSITION. WILL CONTINUE TO MONITOR.
--- NOTE | 2019-05-18 20:00 | NUR ---
DR HUTSON IN TO ASSESS PT. ORDERS TO DISCONTINUE LEVAQUIN.
--- NOTE | 2019-05-18 20:01 | NUR ---
DR HUSTON ORDERED TO NOT GIVE AND DISCONTINUE ANTIBIOTICS.
[2019-05-18] MEDS: ATORVASTATIN 80 MG TAB GT SCH (21:00)
[2019-05-18] MEDS: INSULIN LANTUS 100 UNITS/ML 10 ML VIAL SUBQ SCH (21:04)
--- NOTE | 2019-05-18 22:12 | NUR ---
PT CALM, RESTING IN BED, EYES CLOSED. RESPIRATIONS EVEN AND UNLABORED. CHEST RISE IS SYMMETRICAL. SAFETY PRECAUTIONS IN PLACE. WILL CONTINUE TO MONITOR.
--- NOTE | 2019-05-18 23:00 | NUR ---
DR HAGEN IN TO ASSESS PT. UPDATED ON PT STATUS.
[2019-05-18] MEDS: MORPHINE SULFATE 2 MG/ML SYR IVP PRN (23:09)
[2019-05-19] VITALS (106 sets, daily range): BP systolic 82–192; BP diastolic 41–132
[2019-05-19] MEDS: fentaNYL 1 MG in NACL 0.9% 80 ML IV PRN ×2 (01:27→18:42)
[2019-05-19] MEDS: HYDRAGUARD CREAM TP SCH ×2 (01:30→12:34)
[2019-05-19] MEDS: Z-GUARD PASTE TP SCH ×2 (01:30→12:34)
--- NOTE | 2019-05-19 02:12 | NUR ---
PT RESTING IN BED, RESPIRATIONS EVEN AND UNLABORED. CHEST RISE IS SYMMETRICAL. HOB 30 DEGREES. BED LOCKED IN LOWEST POSITION. WILL CONTINUE TO MONITOR.
[2019-05-19] MEDS: CLINDAMYCIN 600 MG in DEXTROSE 5% 50 ML IV SCH ×3 (05:00→21:00)
--- NOTE | 2019-05-19 05:00 | NUR ---
HELD CLINDAMYCIN ANTIBIOTIC. DR HUSTON ORDERED TO NOT GIVE ANY MORE ANTIBIOTICS. DR HANDLEY MADE AWARE.
[2019-05-19] MEDS: methylPREDNISolone SS 40 MG/ML VIAL IVP SCH ×3 (05:04→21:01)
--- NOTE | 2019-05-19 05:27 | NUR ---
PT STILL ON VENT SETTINGS ORDERED. VENT PLUGGED IN RED OUTLET, ALARMS SET AND AUDIBLE. TRACH CARE DONE. AIRWAY PATENT. TRACH SECURED WITH TRACH TIE. PT IN NO APPARENT RESPIRATORY DISTRESS AT THIS TIME. WILL CONTINUE TO MONITOR.
[2019-05-19 06:27] LABS: MEAN CORPUSCULAR HEMOGLOBIN 25 pg (27-31); MEAN CORPUSCULAR HGB CONC 33 g/dL (33-37); PLATELET COUNT (AUTO) 161 K/uL (140-450); RED BLOOD CELL COUNT(AUTO) 2.27 MIL/uL (4.20-5.40); RED CELL DISTRIBUTION WIDTH 20.5 % (11.6-13.7); WHITE BLOOD COUNT (AUTO) 15.5 K/uL (4.8-10.8)
[2019-05-19 06:41] LABS: ANION GAP 8.1 (8-16); CARBON DIOXIDE 29.2 mmol/L (21-32); CREATININE 0.5 mg/dL (0.6-1.3); POTASSIUM 4.3 mmol/L (3.5-5.1)
[2019-05-19] MEDS: BUDESONIDE 0.5 MG/2 ML NEBU INH SCH ×2 (06:43→19:28)
[2019-05-19] MEDS: ALBUTEROL SULFATE/IPRATROPIU 3 ML SOL IH SCH ×3 (06:43→19:28)
[2019-05-19 06:49] LABS: HEMATOCRIT 17.5 % (36-48); HEMOGLOBIN 5.7 g/dL (12.0-16.0)
[2019-05-19 07:19] LABS: BASOPHILS % (MANUAL) 0 % (0-2); EOSINOPHILS % (MANUAL) 0 % (0-4); LYMPHOCYTES % (MANUAL) 1 % (20-46); MONOCYTES % (MANUAL) 5 % (5-12)
[2019-05-19] MEDS: BLOOD GLUCOSE MONITORING 1 DEV DEV FS SCH ×4 (07:30→20:55)
--- NOTE | 2019-05-19 07:30 | NUR ---
RECEIVED BEDSIDE REPORT FROM ENGINEER CONDUCTOR RN. PT OPENS EYES, RESTLESS, BUT DOES NOT FOLLOW COMMANDS. FLACC 0. AFEBRILE. NORMAL SINUS RHYTHM ON MONITOR. S1 S2 HEARD. PULSES PALPABLE TO ALL EXTREMITIES. CAP REFILL < 2 SEC. PT IS TRACH TO VENT: A/C VC FIO2 24%, VT 450, RR 16, PEEP 5. NO SIGNS OF RESPIRATORY DISTRESS NOTED. PICC LINE TO RIGHT UPPER ARM PATENT AND INTACT, RUNNING VERSED DRIP AT 4 MG/HR, FENTANYL DRIP AT 1 MCG/KG/HR (DRY WEIGHT 68 KG) AND IV FLUID NS AT 50 ML/HR. GT TO TUBE FEEDING: GLUCERNA 1.2 AT 65 ML//HR WITH FWF 100 ML Q4H. NO RESIDUALS NOTED. BOWEL SOUNDS ACTIVE. URIOSTEGUI CATH IN PLACE DRAINING URINE TO GRAVITY, HEMATURIA NOTED. SKIN TEARS TO BOTH WRISTS, OPEN SKIN TO RIGHT LUKE AND LEFT BUTTOCK DRESSINGS CLEAN, DRY AND INTACT. BRUISES TO INNER THIGH, ABDOMEN AND RIGHT SHOULDER NOTED. HOB 30 DEGREES. BED IN LOWEST POSITION LOCKED. CALL LIGHT WITHIN REACH. WILL CONTINUE TO MONITOR.
[2019-05-19] MEDS ORDERED: SODIUM FERRIC GLUCONATE 125 MG in NACL 0.9% 100 ML IV ONE (08:00)
[2019-05-19] MEDS: QUEtiapine FUMARATE 25 MG TAB GT SCH (08:00)
[2019-05-19] MEDS: ASCORBIC ACID 500 MG/5 ML ORASYR GT SCH (08:36)
[2019-05-19] MEDS: DOCUSATE 100 MG/10 ML UDC GT SCH (08:36)
[2019-05-19] MEDS: FERROUS SULFATE 300 MG/5 ML UDC NG SCH (08:36)
[2019-05-19] MEDS: LOSARTAN 25 MG TAB GT SCH (08:37)
[2019-05-19] MEDS: PANTOPRAZOLE 40 MG INJ VIAL IVP SCH (08:37)
[2019-05-19] MEDS: LACTOBACILLUS RHAMNOSUS GG 1 EACH CAP PO SCH (08:37)
[2019-05-19] MEDS: MORPHINE SULFATE 2 MG/ML SYR IVP PRN ×3 (08:37→17:32)
[2019-05-19] MEDS: NYSTATIN/TRIAMCINOLONE CRM 15 GM TUBE TP SCH ×2 (08:39→21:19)
[2019-05-19] MEDS: INSULIN LISPRO SLIDING SCALE 100 UNITS/ML VIAL SUBQ PRN ×4 (08:43→21:11)
--- NOTE | 2019-05-19 08:45 | NUR ---
MEDICATIONS ADMINISTERED ORDERED.
--- NOTE | 2019-05-19 08:47 | NUR ---
PT SEEN AND EXAMINED BY DR. LYNN. PER DR. LYNN, HOLD SEROQUEL AND LOSARTAN AT THIS TIME DUE TO INTERMITTENT LOW BLOOD PRESSURE. DR. LYNN ALSO AWARE OF INCREASED AREA OF BRUISING AROUND BL INNER THIGH, RIGHT SHOULDER AREA AND ABDOMEN.
[2019-05-19] MEDS: MIDAZOLAM MDV 50 MG in NACL 0.9% 40 ML IV PRN (09:04)
[2019-05-19 09:06] LABS: MEAN CORPUSCULAR HEMOGLOBIN 25 pg (27-31); MEAN CORPUSCULAR HGB CONC 32 g/dL (33-37); MEAN CORPUSCULAR VOLUME 77.4 fL (80-94); PLATELET COUNT (AUTO) 173 K/uL (140-450); RED BLOOD CELL COUNT(AUTO) 2.47 MIL/uL (4.20-5.40); RED CELL DISTRIBUTION WIDTH 21.3 % (11.6-13.7); WHITE BLOOD COUNT (AUTO) 17.8 K/uL (4.8-10.8)
[2019-05-19 09:21] LABS: HEMOGLOBIN 6.2 g/dL (12.0-16.0)
[2019-05-19 09:22] LABS: HEMATOCRIT 19.1 % (36-48)
--- NOTE | 2019-05-19 09:30 | NUR ---
PT'S FAMILY AT BEDSIDE. UPDATE GIVEN ON PT'S CONDITION.
[2019-05-19 11:15] LABS: BASOPHILS % (MANUAL) 0 % (0-2); EOSINOPHILS % (MANUAL) 0 % (0-4); LYMPHOCYTES % (MANUAL) 1 % (20-46); MONOCYTES % (MANUAL) 4 % (5-12)
--- NOTE | 2019-05-19 11:55 | NUR ---
FIRST UNIT OF BLOOD TRANSFUSION STARTED, VERIFIED WITH SECOND RN. WILL MONITOR S/SX OF ADVERSE REACTIONS.
--- NOTE | 2019-05-19 12:16 | NUR ---
PT TOLERATING BLOOD TRANSFUSION WELL. AFEBRILE. VSS. BREATHING EVEN AND UNLABORED. WILL CONTINUE TO MONITOR.
[2019-05-19] MEDS: SKINTEGRITY HYDROGEL TP SCH (12:34)
--- NOTE | 2019-05-19 12:34 | NUR ---
MEDICATIONS ADMINISTERED ORDERED. CLEOCIN NON ADMINISTERED. PER DR. HUSTON, KEEP PT OFF ABX TO MONITOR NEW INFECTIONS.
--- NOTE | 2019-05-19 15:00 | NUR ---
BLOOD TRANSFUSION COMPLETED WITHOUT INTERRUPTION. NO SIGNS OF ADVERSE REACTIONS NOTED.
--- NOTE | 2019-05-19 15:15 | NUR ---
SECOND UNIT OF BLOOD TRANSFUSION STARTED. WILL CONTINUE TO MONITOR.
--- NOTE | 2019-05-19 15:50 | NUR ---
PT SEEN AND EXAMINED BY DR. POWELL. UPDATES GIVEN ON PT'S CONDITION. NO NEW ORDER RECEIVED AT THIS TIME.
--- NOTE | 2019-05-19 16:05 | NUR ---
VAP ORAL CARE GIVEN. REPOSITIONED FOR COMFORT AND PRESSURE OFF LOADING. PT TOLERATED WELL.
[2019-05-19] MEDS: NACL 0.9% 1,000 ML IV SCH (17:25)
--- NOTE | 2019-05-19 18:10 | NUR ---
BLOOD TRANSFUSION- 2ND UNIT COMPLETED. DR. MELLISSA OROPEZA.
--- NOTE | 2019-05-19 18:35 | NUR ---
DR. GARSIA IN TO SEE AND EXAMINE PT, AWARE OF PT'S RESTLESSNESS AT THIS TIME AND INCREASED BLOOD PRESSURE. WILL FOLLOW UP ON ORDERS.
--- NOTE | 2019-05-19 19:29 | NUR ---
REPORT GIVEN TO INSTRUCTIONAL TECHNOLOGY SPECIALIST RN FOR CONTINUITY OF CARE. NO S/SX OF ACUTE DISTRESS NOTED AT THIS TIME.
--- NOTE | 2019-05-19 19:32 | NUR ---
RECEIVED PT TRACH WITH PORTEX SIZE 8 FROM AM SHIFT VENT SETTINGS; 16,450,+5,28%. VENT PLUGGED IN RED OUTLET; ALARMS SET AND AUDIBLE. PT IN NO APPARENT RESPIRATORY DISTRESS AT THIS TIME. A COARSE BREATH SOUNDS. HHN TX GIVEN ORDERED WITH NO ADVERSE REACTION. BVM AT BEDSIDE AND HOB > 30. FAMILY AT BEDSIDE. WILL CONTINUE TO MONITOR PT.
--- NOTE | 2019-05-19 19:35 | NUR ---
CHANGE OF SHIFT REPORT GIVEN AT NURSES STATION BY DAY SHIFT NURSE BRENDA. STATES PER DR GARCIA NOTES, HOLD ANTIBIOTICS. WILL F/U. RT AT BEDSIDE, MOTHER, SISTER AT BEDSIDE. STATES GOAL IS TO TRANSFER TO [facility]. STILL UNKNOWN MD AND UNKNOWN [facility] TRANSFER TIME. WILL PASS ON TO AM SHIFT NURSE. PATIENT TRACH TO VENT. AC/VC 16,45,+ 5, 28% (PER RT REPORT AND MONITOR CHECKED). RT CHECKED PATIENTS TRACH DRESSING. DAY NURSE STATES MD AWARE OF BLOOD NOTED. STATES TO GET STOOL SAMPLE. PATIENT RESPIRATIONS SYMMETRICAL AND UNLABORED. HR REGULAR. LUNGS MILD RHONCHI NOTED. BOWEL SOUNDS ACTIVE IN ALL 4 QUAD. NO BM NOTED AT THIS TIME. APPLIED WITH RT NEW BEDDING TO PATIENT. REPOSITIONED. DAISY PICC LINE NO SWELLING.DOUBLE LUMEN. INTACT RUNNING MIDAZOLM 4MG/HR (4ML/HR), FENTANYL 1.5 MCG/KG/HR (10.2ML/HR), AND IVF OF NS 50 ML/HR RUNNING. DAY SHIFT NURSE STATES SHE CHANGED NEW DRESSING FOR PICC LINE TODAY. F/C IN PLACE. PATIENT HAS MITTEN RESTRAINTS IN PLACE. DRESSINGS ON BUE WRISTS INTACT WITH NO LEAKAGE. RLE LUKE/CALF BANDAGE PRESENT WITH CHAI BANDAGE PRESENT. NO LEAKAGE. NO SWELLING NOTED ON BUE OR BLE. PATIENT HAS MULTIPLE BRUISING ON ARMS, SHOULDERS, BACK, LEGS, STOMACH, PURPLE AND GREEN IN COLOR. AM STATES MD AWARE OF BRUISING. WILL CONTINUE TO MONITOR. SAFETY MEASURES IN PLACE. BED IN LOWEST POSITION. RESTING AT THIS TIME. NO DISTRESS OR SOB NOTED. VSS. WILL CONTINUE TO MONITOR. Addendum: 05/19/19 at 0064 by Cyndi Jimenez RN PER DAY NURSE RASS GOAL -1 AND DRY WT OF 68 KG.
--- NOTE | 2019-05-19 19:57 | NUR ---
SISTER AND MOTHER LEAVING AT THIS TIME. NO QUESTIONS NEEDED.
--- NOTE | 2019-05-19 20:22 | NUR ---
VAP ORAL CARE KIT USED TO SUCTION AND CLEAN PATIENTS MOUTH. CHAP STICK APPLIED TO DRIED LIPS. TOLERATED WELL. VSS. WILL CONTINUE TO MONITOR. NO SOB OR DISTRESS NOTED.
[2019-05-19 20:28] LABS: BASOPHILS % (AUTO) 0.2 % (0.0-2.0); HEMATOCRIT 27.2 % (36-48); LYMPHOCYTES # (AUTO) 0.2 K/uL (2.5-16.5); MEAN CORPUSCULAR HEMOGLOBIN 27 pg (27-31); MEAN CORPUSCULAR HGB CONC 33 g/dL (33-37); MEAN CORPUSCULAR VOLUME 80.9 fL (80-94); MONOCYTES # (AUTO) 0.8 K/uL (0.8-1.0); MONOCYTES % (AUTO) 4.4 % (1.7-9.3); NEUTROPHILS # (AUTO) 17.2 K/uL (1.8-7.7); NEUTROPHILS % (AUTO) 94.4 % (42.2-75.2); PLATELET COUNT (AUTO) 132 K/uL (140-450); RED BLOOD CELL COUNT(AUTO) 3.36 MIL/uL (4.20-5.40); RED CELL DISTRIBUTION WIDTH 21.3 % (11.6-13.7); WHITE BLOOD COUNT (AUTO) 18.3 K/uL (4.8-10.8)
--- NOTE | 2019-05-19 21:00 | NUR ---
MEDICATION ADMINISTRATION PER MD ORDERS. CO SIGNED/ DOUBLE CHECKED BY CHARGE NURSE. PATIENT TOLERATED WELL. VSS. WILL CONTINUE TO MONITOR.
[2019-05-19] MEDS: ATORVASTATIN 80 MG TAB GT SCH (21:02)
[2019-05-19] MEDS: INSULIN LANTUS 100 UNITS/ML 10 ML VIAL SUBQ SCH (21:07)
--- NOTE | 2019-05-19 21:27 | NUR ---
DR HUSTON AT BEDSIDE. VSS. PATIENT SLEEPING. NOTIFIED OF ELEVATED WBC AND OTHER LAB RESULTS. NOTIFIED OF 99.0 AND 99.6 AXILLARY TEMPERATURE THIS EVENING. FLACC 0. NO SOB OR DISTRESS NOTED. VSS. NOTIFIED MD THAT DAY SHIFT PASSED ON PER HIS NOTES TO HOLD ANTIBIOTICS. MD STATES HE ALREADY DISCONTINUED ALL ANTIBIOTICS. SHOWED MD IN COMPUTER THE ACTIVE ORDER FOR CLEOCIN. MD STATES TO DISCONTINUE THE ANTIBIOTICS FOR MD PER MD. NJOTIFIED OF MEDICATION GIVEN. AT BEDSIDE. NOTIFIED OF HEMATURIA IN TUBING. STATES TO DISCONTINUE ANTIBIOTICS. WILL CONTINUE TO MONITOR.
--- NOTE | 2019-05-19 21:53 | NUR ---
RT CHECKED PATIENT. PATIENT SLEEPING. VSS. NO SOB OR DISTRESS NOTED. 95% OXYGEN SATURATION. WILL CONTINUE TO MONITOR.
--- NOTE | 2019-05-19 22:03 | NUR ---
RT AT PATIENT BEDSIDE AGAIN. CHECKING MONITOR AT THIS TIME. VSS. PATIENT SLEEPING 96% OXYGEN SATURATION PER MONITOR READING. PATIENT SKIN COLOR WNL. WILL CONTINUE TO MONITOR. FLACC O.APPEARS RESTED AT THIS TIME.
[2019-05-20] VITALS (89 sets, daily range): BP systolic 80–198; BP diastolic 37–112
--- NOTE | 2019-05-20 00:07 | NUR ---
VAP ORAL CARE KIT USED TO SUCTION AND CLEAN PATIENTS MOUTH. CHAP STICK PACKET APPLIED TO PATIENTS DRIED LIPS. TOLERATED WELL. VSS. WILL CONTINUE TO MONITOR. NO SOB OR DISTRESS NOTED. PATIENT AFEBRILE AT THIS TIME.
--- NOTE | 2019-05-20 00:20 | NUR ---
PATIENT RESTLESS IN BED. RELAXATION TECHNIQUES NOT WORKING. DECREASED STIMULI NOT WORKING. MORPHINE GIVEN PER MD ORDERS. EYES OPEN IN BED. BP 143/90. BP INCREASED SINCE RESTLESS IN BED. WILL REASSESS AND CLOSELY MONITOR. NO SOB OR DISTRESS NOTED. 100% OXYGEN SATURATION.
[2019-05-20] MEDS: MORPHINE SULFATE 2 MG/ML SYR IVP PRN (00:22)
[2019-05-20] MEDS: HYDRAGUARD CREAM TP SCH ×2 (00:37→15:07)
[2019-05-20] MEDS: Z-GUARD PASTE TP SCH ×2 (00:37→15:07)
--- NOTE | 2019-05-20 02:10 | NUR ---
RT AT PATIENT BEDSIDE.
--- NOTE | 2019-05-20 03:20 | NUR ---
VAP ORAL CARE KIT USED TO SUCTION AND CLEAN PATIENTS MOUTH. CHAP STICK APPLIED TO DRIED LIPS. CHANGED PATIENTS URIOSTEGUI CATHETER SECUREMENT DRESSING X2 AFTER CLEANING AND PLACING PROTECTIVE ADHESIVE . NOT STICKING WELL IT SHOULD SO TAPED WITH PAPER LIKE TAPE TO REINFORCE. STABLE AT THIS TIME. PATIENT CONTINUES TO MOVE OFTEN. WILL CONTINUE TO MONITOR F/C. LIGHT NADIR COLORED URINE DRAINING IN BAG WITH SEDIMENT PRESENT. ASSESSED DRESSING ON RIGHT LUKE. INTACT AND DRY. STILL IN PLACE. ASSESSED BUE WRIST DRESSINGS AND REINFORCED WITH PAPER LIKE TAPE. NO NEW SKIN INJURIES NOTED AT THIS TIME. REPOSITIONED PATIENT WITH PATIENTS HELP WELL CHARGE NURSES. MADE SURE TO PROTECT PICC LINE AND TUBINGS WELL TRACH TO VENT LINES. PATIENT DRESSING ON SACRAL AREA STILL DRY AND INTACT AT THIS TIME. OLD BRUISING NOTED ON NUMEROUS BODY AREAS. TOLERATED DRESSING CHANGES WELL. VSS. WILL CONTINUE TO MONITOR. NO SOB OR DISTRESS NOTED.
--- NOTE | 2019-05-20 03:45 | NUR ---
RT AT PATIENT BEDSIDE. SUCTIONED PATIENT. MORNING CARE PERFORMED. CATHETER CARE PERFORMED. NO BM NOTED AT THIS TIME. CHARGE NURSE ASSISTING. NO INJURIES NOTED. ALL DRESSING CHANGES INTACT. NOT LEAKING NOTED. APPLIED CHAP STICK FOR PATIENTS DRIED LIPS. TOLERATED WELL.
--- NOTE | 2019-05-20 04:45 | NUR ---
LAB AT PATIENT BEDSIDE WITH NURSE
--- NOTE | 2019-05-20 04:55 | NUR ---
TRACH CARE DONE. AIRWAY PATENT. PT IS IN NO APPARENT RESPIRATORY DISTRESS. WILL CONTINUE TO MONITOR PT.
[2019-05-20] MEDS: methylPREDNISolone SS 40 MG/ML VIAL IVP SCH ×2 (05:00→21:00)
[2019-05-20] MEDS: fentaNYL 1 MG in NACL 0.9% 80 ML IV PRN ×4 (05:00→23:41)
--- NOTE | 2019-05-20 05:00 | NUR ---
MEDICATION ADMINISTRATION PER MD ORDERS. PATIENT TOLERATED WELL. RT AT BEDSIDE FOR TRACH CARE. NO SOB OR DISTRESS NOTED. WILL CONTINUE TO MONITOR AT THIS TIME.
[2019-05-20 06:27] LABS: BASOPHILS # (AUTO) 0.1 K/uL (0.00-0.22); BASOPHILS % (AUTO) 0.4 % (0.0-2.0); HEMATOCRIT 25.8 % (36-48); HEMOGLOBIN 8.6 g/dL (12.0-16.0); LYMPHOCYTES # (AUTO) 0.2 K/uL (2.5-16.5); LYMPHOCYTES % (AUTO) 1.4 % (20.5-51.1); MEAN CORPUSCULAR HEMOGLOBIN 28 pg (27-31); MEAN CORPUSCULAR HGB CONC 34 g/dL (33-37); MEAN CORPUSCULAR VOLUME 81.8 fL (80-94); MONOCYTES # (AUTO) 0.7 K/uL (0.8-1.0); MONOCYTES % (AUTO) 4.2 % (1.7-9.3); NEUTROPHILS # (AUTO) 15.5 K/uL (1.8-7.7); PLATELET COUNT (AUTO) 113 K/uL (140-450); RED BLOOD CELL COUNT(AUTO) 3.15 MIL/uL (4.20-5.40); RED CELL DISTRIBUTION WIDTH 21.4 % (11.6-13.7); WHITE BLOOD COUNT (AUTO) 16.4 K/uL (4.8-10.8)
[2019-05-20] MEDS: BLOOD GLUCOSE MONITORING 1 DEV DEV FS SCH ×4 (06:33→20:57)
--- NOTE | 2019-05-20 06:34 | NUR ---
RT AT PATIENT BEDSIDE. BLOOD SUGAR CHECKED. WILL GIVE INSULIN PER SLIDING SCALE PER MD ORDERS. VSS. TOLERATED WELL. WILL CONTINUE TO MONITOR. URINE OUTPUT 680 CC URINE.
[2019-05-20] MEDS: ALBUTEROL SULFATE/IPRATROPIU 3 ML SOL IH SCH ×3 (06:35→19:06)
--- NOTE | 2019-05-20 06:35 | NUR ---
REC'D PT ON CARESCAPE VENT SETTING AC16 VT 450 PEEP 5 FIO2 24% ALARMS ON AND AUDIBLE AND AMBU BAG AT SIDE OF VENT AND VENT IS PLUGGED INTO RED OUTLET, I\L TSX GIVEN WITH DUONEB 3ML AND PULMICORT 0.5MG WITH NO ADVERSE REACTION POST TX B\S ARE COARSE BILATERALLY SXN MODERATED AMT OF FROTHY PINK SECRETIONS, PT IS TRACH WITH PORTEX 8 PT IS RESTING
[2019-05-20 06:37] LABS: ANION GAP 9.6 (8-16); CARBON DIOXIDE 26.2 mmol/L (21-32); CREATININE 0.6 mg/dL (0.6-1.3); POTASSIUM 4.8 mmol/L (3.5-5.1)
--- NOTE | 2019-05-20 06:40 | NUR ---
MD RESIDENT AT PATIENT BEDSIDE. UPDATED ON I &O, UPDATED ON URINE, BODY ASSESSMENT. NOTIFIED OF BRUISING. ASSESSED BACK AND BUTTOCKS, UPDATED ON LABS, MD STATES AWARE. AWARE OF RESTLESSNESS, AWARE OF PLAN TO [facility]. WILL PASS ALONG TO DAY SHIFT NURSE.
[2019-05-20 06:43] LABS: MAGNESIUM 2.1 mg/dL (1.8-2.4)
[2019-05-20] MEDS: BUDESONIDE 0.5 MG/2 ML NEBU INH SCH ×2 (06:44→19:06)
--- NOTE | 2019-05-20 06:45 | NUR ---
MEDICATION ADMINISTRATION PER MD ORDERS. PATIENT TOLERATED WELL/ BX TX GIVEN BY RT AT BEDSIDE. PATIENT STABLE CONDITION. VSS. NO SOB OR DISTRESS NOTED. WILL CONTINUE TO MONITOR AT THIS TIME.
[2019-05-20] MEDS: INSULIN LISPRO SLIDING SCALE 100 UNITS/ML VIAL SUBQ PRN ×2 (06:46→15:03)
--- NOTE | 2019-05-20 07:17 | NUR ---
CHANGE OF SHIFT REPORT GIVEN AT BEDSIDE TO DAY NURSE BART. ENDORSED TO GET STOOL SAMPLE. ENDORSED TO GET RESTRAINT ORDER FOR MITTENS RENEWAL, NOTIFIED THAT CHECKED BS AND COVERED WITH INSULIN FOR 729 ALREADY. NO SOB OR DISTRESS NOTED. VSS. PATIENT STABLE. NO FURTHER QUESTIONS BY DAY NURSE.
--- NOTE | 2019-05-20 07:30 | NUR ---
RECEIVED BEDSIDE REPORT FROM ROLAN LAN.PT IS AFEBRILE SLEEPING QUIETLY AT THE TIME. SKIN DRY WARM TO TOUCH COLOR IS NORMAL.TRACH TO VENT SETTING AC 16 FIO2 30%TV 450 PEEP 5 O2 SAT IS 93%. ABDOMEN SOFT , BS ACTIVE G TBE FEEDING WITH GLUCERNA 1.2 AT 65 ML/HR .URIOSTEGUI CATH DRAIN CLEAR NADIR URINE,THERE BRUISE ON BOTH THIGH ABDOMEN AND ARMS.THE DRESSING ON THE WOUND AT LOWER RT LEG IS DRY AND INTACT.
--- NOTE | 2019-05-20 07:45 | NUR ---
VISIT BY DR. LYNN AT BED SIDE. NEW ORDER RECEIVED.
[2019-05-20] MEDS: LACTOBACILLUS RHAMNOSUS GG 1 EACH CAP PO SCH (08:38)
[2019-05-20] MEDS: FERROUS SULFATE 300 MG/5 ML UDC NG SCH (08:38)
[2019-05-20] MEDS: PANTOPRAZOLE 40 MG INJ VIAL IVP SCH (08:39)
[2019-05-20] MEDS: DOCUSATE 100 MG/10 ML UDC GT SCH (08:39)
[2019-05-20] MEDS: LORazepam 1 MG TAB GT PRN ×2 (08:39→14:37)
--- NOTE | 2019-05-20 08:40 | NUR ---
PP. GETTING RESTLESS KICKING AND TRY TO GET UP HR UP TO 131/MIN BP190/112 O2 SAT IS DOWN TO73% THERE IS FROSTY PING FR0M THE TRACH TUBE.
--- NOTE | 2019-05-20 08:45 | NUR ---
RT AT BED SIDE VENT SETTING CHANGED FIO2 100 % AT THE TIME,
[2019-05-20] MEDS: ASCORBIC ACID 500 MG/5 ML ORASYR GT SCH (09:00)
--- NOTE | 2019-05-20 09:02 | NUR ---
changed vent mode due to high peak pressures of 80 to pc 25 rr 16 itime 1.oo peep 5 fio2 100% due to low o2 sat of 86% pt is very agitated and rn magdi at bedside pt was given ativan
[2019-05-20] MEDS: MIDAZOLAM MDV 50 MG in NACL 0.9% 40 ML IV PRN ×2 (10:43→18:37)
[2019-05-20] MEDS: NYSTATIN/TRIAMCINOLONE CRM 15 GM TUBE TP SCH ×2 (10:54→21:00)
--- NOTE | 2019-05-20 11:12 | NUR ---
DECREASED FIO2 TO 70% AND PTS O2 SAT IS 93%
--- NOTE | 2019-05-20 11:15 | NUR ---
CHANGED VENT MODE TO AC\PRVC RR 16 VT450 PEEP 5 FIO2
--- NOTE | 2019-05-20 11:22 | NUR ---
SPOKE WITH DR. RAMOS CONCERNING VENT MODE AND CHANGES MADE FINE WITH CHANGING VENT TO AC\PRVC
--- NOTE | 2019-05-20 12:00 | NUR ---
BLOOD GLUCOSE 175 INSULIN COVER ORDERED.
--- NOTE | 2019-05-20 12:16 | NUR ---
WOUND CARE RE-EVALUATION TO RLE WOUND BED 4.5X3X0.1CM WOUND BED PINK WITH SCATTERED THIN YELLOW SLOUGH, MOIST WOUND WITH NO ODOR, HORACIO WOUND NO ERYTHEMA, NO SWELLING, HORACIO WOUND SKIN INTACT. WILL CONTINUE TO APPLY HYDROGEL TO WOUND BED ORDERED. MULTIPLE ECCHYMOSIS TO SHOULDERS TRUNK OF BODY, POSSIBLE DUE TO MEDICATION HEPARIN INJECTION. TRACH AND GT HORACIO-STOMA SKIN INTACT.
[2019-05-20] MEDS: SKINTEGRITY HYDROGEL TP SCH (13:00)
--- NOTE | 2019-05-20 13:00 | NUR ---
ALL WOUND CLEANED AND DRESSING CHANGED AND MEDICATED ORDERED.
[2019-05-20 14:39] LABS: PROTHROMBIN TIME 10.3 secs (10.8-13.4)
--- NOTE | 2019-05-20 14:40 | NUR ---
SEEN BY DR RAMOS AT BED SIDE PT. IS RESTLESS BREATHING FAST 37-40/MIN. DR. RAMOS ORDERED TO IN CREASED SEDATION. AND CT OF CHEST TO BE DONE.
[2019-05-20] MEDS: NACL 0.9% 1,000 ML IV SCH (17:31)
--- NOTE | 2019-05-20 19:25 | NUR ---
RECEIVED PT FROM AM SHIFT RN. TRACH TO VENT ON AC PRVC MODE, FIO2 70, TV 450, RATE 16, PEEP 8. PICC LINE DAISY. PT SEDATED. INFUSING VERSED 10MG, FENTANYL 2.5MCG/KG/MIN. RASS-4. DRY WEIGHT 68KG. LUNG SOUNDS CLEAR. HEART SOUNDS HEARD S1 AND S2. GTUBE TO FEEDING. WOUNDS NOTED, SEE WOUND ASSESSMENT. ACTIVE BOWEL SOUNDS. CAP REFILL LESS THAN 2 SECONDS. URIOSTEGUI CATHETER IN PLACE. HOB 30 DEGREES. BED LOCKED IN LOWEST POSITION. WILL CONTINUE TO MONITOR. Addendum: 05/20/19 at 2320 by Arya Glasgow RN [facility] -3
--- NOTE | 2019-05-20 19:27 | NUR ---
RECEIVED PT TRACH WITH PORTEX SIZE 8 FROM AM SHIFT VENT SETTINGS; PRVC 16,450,+8,70%. VENT PLUGGED IN RED OUTLET; ALARMS SET AND AUDIBLE. PT IN NO APPARENT RESPIRATORY DISTRESS AT THIS TIME. A COARSE BREATH SOUNDS. SUCTION SMALL BLOODY SECRETIONS. HHN TX GIVEN ORDERED WITH NO ADVERSE REACTION. BVM AT BEDSIDE AND HOB > 30. FAMILY AT BEDSIDE. WILL CONTINUE TO MONITOR PT.
--- NOTE | 2019-05-20 20:00 | NUR ---
PT IN CT SCAN. NO DISTRESS NOTED. WILL CONTINUE TO MONITOR.
--- NOTE | 2019-05-20 20:30 | NUR ---
PT TRANSFERRED TO ICU -[address] SCAN. NO DISTRESS NOTED. WILL CONTINUE TO MONITOR.
[2019-05-20] MEDS: DEXTROSE 50% 50 ML SYR IVP PRN (20:56)
[2019-05-20] MEDS: INSULIN LANTUS 100 UNITS/ML 10 ML VIAL SUBQ SCH (20:57)
[2019-05-20] MEDS: ATORVASTATIN 80 MG TAB GT SCH (20:59)
[2019-05-20] MEDS: ACETAMINOPHEN 325 MG TAB PO PRN (20:59)
--- NOTE | 2019-05-20 21:00 | NUR ---
STARTED ON LEVOPHED. TYLENOL GIVEN, ELEVATED TEMPERATURE 101.4. BLOOD SUGAR 23, DEXTROSE GIVEN.
[2019-05-20] MEDS: NOREPINEPHRINE 4 MG in DEXTROSE 5% 250 ML IV PRN (21:15)
[2019-05-20] MEDS ORDERED: RACEPINEPHRINE 2.25% 13.5 MG/0.5 ML NEBU INH PRN (21:15)
--- NOTE | 2019-05-20 21:15 | NUR ---
BLOOD SUGAR 95.
[2019-05-20] MEDS ORDERED: RACEPINEPHRINE 2.25% 13.5 MG/0.5 ML NEBU INH ONE (22:00)
--- NOTE | 2019-05-20 23:15 | NUR ---
PT HAS EYES CLOSED, RESPIRATIONS EVEN AND UNLABORED. CHEST RISE IS SYMMETRICAL. VITAL SIGNS STABLE. HOB 30 DEGREES. BED LOCKED IN LOWEST POSITION. WILL CONTINUE TO MONITOR.
[2019-05-21] VITALS (107 sets, daily range): BP systolic 90–167; BP diastolic 46–83
[2019-05-21] MEDS: Z-GUARD PASTE TP SCH ×2 (01:03→13:09)
[2019-05-21] MEDS: HYDRAGUARD CREAM TP SCH ×2 (01:03→13:09)
[2019-05-21] MEDS: MIDAZOLAM MDV 50 MG in NACL 0.9% 40 ML IV PRN ×3 (01:17→17:50)
--- NOTE | 2019-05-21 04:35 | NUR ---
VAP ORAL CARE, URIOSTEGUI CATH CARE PROVIDED. PT TURNED AND REPOSITIONED.
[2019-05-21] MEDS: fentaNYL 1 MG in NACL 0.9% 80 ML IV PRN ×2 (05:37→17:39)
[2019-05-21] MEDS: BLOOD GLUCOSE MONITORING 1 DEV DEV FS SCH ×4 (06:00→23:41)
--- NOTE | 2019-05-21 06:12 | NUR ---
DR GALLO IN TO ASSESS PT.
[2019-05-21 06:30] LABS: ANION GAP 7.7 (8-16); CARBON DIOXIDE 27.1 mmol/L (21-32); CREATININE 0.5 mg/dL (0.6-1.3); POTASSIUM 4.8 mmol/L (3.5-5.1)
[2019-05-21] MEDS: ALBUTEROL SULFATE/IPRATROPIU 3 ML SOL IH SCH ×3 (06:30→20:06)
[2019-05-21] MEDS: BUDESONIDE 0.5 MG/2 ML NEBU INH SCH ×2 (06:31→20:06)
[2019-05-21 06:42] LABS: MAGNESIUM 1.9 mg/dL (1.8-2.4); PHOSPHORUS 3.2 mg/dL (2.5-4.9)
--- NOTE | 2019-05-21 07:20 | NUR ---
RECEIVED PT FROM CONDUCTOR FREIGHT RN, BLADE. PT IS SEDATED, RASS -3. TRACH TO VENT ON AC PRVC MODE, FIO2 70%, TV 450, RATE 16, PEEP 8. PICC LINE DAISY, INFUSING VERSED AT 7MG/HR AND FENTANYL AT 2.5MCG/KG/HR. DRY WEIGHT 68KG. S1S2, SR ON MONITOR. LUNG SOUNDS CLEAR, DIMINISHED. HEART SOUNDS HEARD S1 AND S2. G TUBE TO FEEDING, GLUCERNA 1.2 AT RATE 65ML/HR, WATER FLUSH 100ML Q4H. OPEN WOUNDS ON RLE, COVERED WITH CHAI WRAP. OTHER SKIN TEARS AND EROSION NOTED ON BUTTOCKS AND LABIA FOLDS. DETAILS WILL BE DOCUMENTED IN WOUND ASSESSMENT. ACTIVE BOWEL SOUNDS. CAP REFILL LESS THAN 2 SECONDS. URIOSTEGUI CATHETER IN PLACE, DRAINING YELLOW URINE WITH SEDIMENTS. HOB 30 DEGREES. BED LOCKED IN LOWEST POSITION. WILL CONTINUE TO MONITOR.
--- NOTE | 2019-05-21 08:00 | NUR ---
G TUBE RESIDUAL 110ML. PLACED IT BACK TO PT. PT ON MITTEN RESTRAINTS, NO SIGNS OF INJURY.
[2019-05-21 08:09] LABS: HEMATOCRIT 24.1 % (36-48); HEMOGLOBIN 7.9 g/dL (12.0-16.0); MEAN CORPUSCULAR HEMOGLOBIN 27 pg (27-31); MEAN CORPUSCULAR HGB CONC 33 g/dL (33-37); MEAN CORPUSCULAR VOLUME 83.3 fL (80-94); PLATELET COUNT (AUTO) 131 K/uL (140-450); RED BLOOD CELL COUNT(AUTO) 2.89 MIL/uL (4.20-5.40); RED CELL DISTRIBUTION WIDTH 21.8 % (11.6-13.7); WHITE BLOOD COUNT (AUTO) 20.2 K/uL (4.8-10.8)
[2019-05-21] MEDS: methylPREDNISolone SS 40 MG/ML VIAL IVP SCH ×2 (08:13→20:07)
[2019-05-21] MEDS: DOCUSATE 100 MG/10 ML UDC GT SCH (08:14)
[2019-05-21] MEDS: ASCORBIC ACID 500 MG/5 ML ORASYR GT SCH (08:15)
[2019-05-21] MEDS: PANTOPRAZOLE 40 MG INJ VIAL IVP SCH (08:15)
[2019-05-21] MEDS: NYSTATIN/TRIAMCINOLONE CRM 15 GM TUBE TP SCH ×2 (08:15→20:07)
[2019-05-21] MEDS: LACTOBACILLUS RHAMNOSUS GG 1 EACH CAP PO SCH (08:15)
[2019-05-21] MEDS: FERROUS SULFATE 300 MG/5 ML UDC NG SCH (08:16)
[2019-05-21 08:25] LABS: LYMPHOCYTES % (MANUAL) 2 % (20-46); MONOCYTES % (MANUAL) 2 % (5-12)
[2019-05-21] MEDS ORDERED: VANCOMYCIN PER PHARMACY MC PRN (10:20)
[2019-05-21] MEDS ORDERED: BISACODYL 10 MG SUPP RC SCH (10:46)
[2019-05-21] MEDS ORDERED: SODIUM PHOSPHATE 118 ML ENEM RC SCH (10:46)
--- NOTE | 2019-05-21 10:50 | NUR ---
DR RAMOS SEEN PT. OK TO TITRATE DOWN FIO2 IF ABG IS GOOD. TURNED FIO2 FROM 70% TO 60%, MADE RT ROBERTO AWARE.
[2019-05-21] MEDS: VANCOMYCIN 1,000 MG in DEXTROSE 5% 250 ML IV SCH ×2 (11:56→23:44)
[2019-05-21] MEDS: INSULIN LISPRO SLIDING SCALE 100 UNITS/ML VIAL SUBQ PRN ×3 (12:13→23:43)
[2019-05-21] MEDS: NACL 0.9% 1,000 ML IV SCH (12:50)
[2019-05-21] MEDS: SKINTEGRITY HYDROGEL TP SCH (13:09)
[2019-05-21] MEDS: MEROPENEM 500 MG in NACL 0.9% 50 ML IV SCH ×2 (13:42→21:25)
--- NOTE | 2019-05-21 14:20 | NUR ---
DULCOLAX SUPPOSITORY GIVEN IN THE AM, HOWEVER NOTHING HAPPENED. FLEET ENEMA GIVEN. GOOD OUTCOMES. HARD BROWN STOOL CAME OUT AND SPECIMEN SENT TO LAB. CALLED DR DANIELLE AND MADE HER AWARE.
--- NOTE | 2019-05-21 15:53 | NUR ---
05/21/19 FOLLOW UP COMPLETED PLEASE REFER TO NUTRITION ASSESSMENT UNDER CARE ACTIVITY FOR ESTIMATED NUTRITIONAL NEEDS. 1. CONTINUE GLUCERNA 1.2 @65 ML/HR X 24 HR -THIS WILL PROVIDE 1875 KCAL, 93.6G PROTEIN, AND 1255 ML OF WATER; SUFFICIENT TO MEET 100% OF PATIENT'S DAILY ESTIMATED NUTRITIONAL NEEDS. 2. CONTINUE VITAMIN C SUPPLEMENTATION FOR WOUND HEALING 3. CONTINUE FREE WATER FLUSH OF 100 ML Q4H 4. F/U 2-3 DAYS; HIGH RISK ANGELITA RICHTER RD
--- NOTE | 2019-05-21 19:35 | NUR ---
RECEIVED REPORT FROM DAY SHIFT RN. PT FOLLOWS COMMANDS, RASS-3 ON FENTANYL DRIP @ 2.0 MCG/KG/HR, AND VERSED DRIP @ 7 MG/HR. S1 S2 NSR +2 EDEMA TO PERIPHERAL EXTREMITIES, PALPABLE PULSES. LUNGS TRACH TO VENT, 60 % FIO2 HARKINS SECRETIONS IN PLACE. ABD SOFT NON DISTENDED, PEG TUBE IN PLACE, GLUCERNA RUNNING. URIOSTEGUI CATH IN PLACE CLEAR YELLOW URINE NOTED. SKIN NON INTACT, SCATTERED BRUISING UPPER AND LOWER EXTREMITIES, WOUNDS NOTED TO BILATERAL WRIST, L LEG AND LOWER BACK AREA. DUAL LUMEN PICC TO R UPPER ARM NOTED. SAFETY PRECAUTIONS IN PLACE, BED LOCKED IN LOWEST POSITION. WT 68 KG.
[2019-05-21] MEDS: ATORVASTATIN 80 MG TAB GT SCH (20:07)
[2019-05-21] MEDS ORDERED: MEROPENEM 500 MG VIAL IV ONE (20:31)
--- NOTE | 2019-05-21 22:15 | NUR ---
PT HAS EYES OPEN RASS -3, FLACC 0. WILL CONTINUE TO OBSERVE.
--- NOTE | 2019-05-21 22:36 | NUR ---
RECEIVED PT TRACH WITH PORTEX SIZE 8 FROM AM SHIFT VENT SETTINGS; PRVC 16,450,+8,60%. TITRATE Fi02 TO 55% WITH SPO2 OF 96%. VENT PLUGGED IN RED OUTLET; ALARMS SET AND AUDIBLE. PT IN NO APPARENT RESPIRATORY DISTRESS AT THIS TIME. A COARSE BREATH SOUNDS. HHN TX GIVEN ORDERED WITH NO ADVERSE REACTION. BVM AT BEDSIDE AND HOB > 30. WILL CONTINUE TO MONITOR PT.
[2019-05-22] VITALS (107 sets, daily range): BP systolic 108–219; BP diastolic 51–151
--- NOTE | 2019-05-22 | NUR ---
VAP ORAL CARE DONE, PT TURNED REPOSITIONED. HOB 30 DEGREES, NO ACUTE DISTRESS NOTED. WILL CONTINUE TO OBSERVE.
[2019-05-22] MEDS: MIDAZOLAM MDV 50 MG in NACL 0.9% 40 ML IV PRN (00:39)
[2019-05-22] MEDS: fentaNYL 1 MG in NACL 0.9% 80 ML IV PRN ×3 (00:44→16:58)
[2019-05-22] MEDS: Z-GUARD PASTE TP SCH ×2 (00:45→12:09)
[2019-05-22] MEDS: HYDRAGUARD CREAM TP SCH ×2 (00:45→12:08)
--- NOTE | 2019-05-22 05:20 | NUR ---
AM CARE DONE, PT TURNED AND REPOSITIONED. RASS -3 FLACC 0. NO ACUTE DISTRESS NOTED.
[2019-05-22] MEDS: NACL 0.9% 1,000 ML IV SCH (05:25)
--- NOTE | 2019-05-22 05:25 | NUR ---
TRACH CARE DONE. SX MODERATE THICK HARKINS SECRETIONS. PT IS IN NO RESPIRATORY DISTRESS AT THIS TIME. AIRWAY PATENT. NO CHANGES IN VENT SETTINGS. PER PROTOCOL, FiO2 TITRATED TO 50% WITH SPO2 OF 97%. WILL CONTINUE TO MONITOR PT.
[2019-05-22] MEDS ORDERED: MEROPENEM 500 MG VIAL IV ONE (05:33)
[2019-05-22] MEDS: INSULIN LISPRO SLIDING SCALE 100 UNITS/ML VIAL SUBQ PRN ×4 (05:43→23:25)
[2019-05-22] MEDS: MEROPENEM 500 MG in NACL 0.9% 50 ML IV SCH ×3 (05:46→20:18)
[2019-05-22] MEDS: BLOOD GLUCOSE MONITORING 1 DEV DEV FS SCH ×4 (05:47→23:23)
[2019-05-22 06:19] LABS: ANION GAP 8.7 (8-16); CARBON DIOXIDE 26.9 mmol/L (21-32); CREATININE 0.7 mg/dL (0.6-1.3); POTASSIUM 5.6 mmol/L (3.5-5.1)
[2019-05-22 06:21] LABS: MAGNESIUM 2.1 mg/dL (1.8-2.4); PHOSPHORUS 3.2 mg/dL (2.5-4.9)
[2019-05-22 07:09] LABS: BASOPHILS % (AUTO) 0.3 % (0.0-2.0); HEMATOCRIT 20.8 % (36-48); LYMPHOCYTES # (AUTO) 0.1 K/uL (2.5-16.5); LYMPHOCYTES % (AUTO) 0.9 % (20.5-51.1); MEAN CORPUSCULAR HEMOGLOBIN 27 pg (27-31); MEAN CORPUSCULAR HGB CONC 33 g/dL (33-37); MONOCYTES # (AUTO) 0.2 K/uL (0.8-1.0); NEUTROPHILS # (AUTO) 11.7 K/uL (1.8-7.7); NEUTROPHILS % (AUTO) 96.8 % (42.2-75.2); PLATELET COUNT (AUTO) 100 K/uL (140-450); RED BLOOD CELL COUNT(AUTO) 2.48 MIL/uL (4.20-5.40); RED CELL DISTRIBUTION WIDTH 21.7 % (11.6-13.7); WHITE BLOOD COUNT (AUTO) 12.1 K/uL (4.8-10.8)
[2019-05-22] MEDS: BUDESONIDE 0.5 MG/2 ML NEBU INH SCH ×2 (07:17→18:53)
[2019-05-22] MEDS: ALBUTEROL SULFATE/IPRATROPIU 3 ML SOL IH SCH ×3 (07:18→18:53)
--- NOTE | 2019-05-22 07:20 | NUR ---
RECEIVED BEDSIDE REPORT FROM BELTING INSPECTOR RN. PT IS SEDATED, RASS -3. FLACC 0. AFEBRILE. NORMAL SINUS RHYTHM ON MONITOR. S1 S2 HEARD. 2+ EDEMA TO BUE. PULSES PALPABLE TO ALL EXTREMITIES. TRACH TO VENT W/ SETTINGS: A/C VC FIO2 40%, VT 450, RR 16, PEEP 8. LUNGS SOUND CLEAR BILATERALLY. BREATHING EVEN AND UNLABORED. GT IN PLACE, RECEIVING TUBE FEEDING GLUCERNA 1.2 AT 65 ML//HR WITH WATER FLUSH 100 ML Q4H. ABDOMEN SOFT, NONDISTENDED, NONTENDER, BOWEL SOUNDS ACTIVE X 4 QUADRANTS. PICC LINE TO RIGHT UPPER ARM ASYMPTOMATIC, PATENT AND INTACT. PT IS ON VERSED DRIP AT 7 MG/HR, FENTANYL DRIP AT 2 MCG/KG/HR (DRY WEIGHT 68 KG) AND IVF NS AT 50 ML/HR. URIOSTEGUI CATH IN PLACE DRAINING LIGHT NADIR URINE TO GRAVITY DRAINAGE BAG. OPEN WOUND TO BL WRISTS, RIGHT LUKE AND LEFT LOWER BACK NOTED. HOB 30 DEGREES. BED IN LOWEST POSITION LOCKED. CALL LIGHT WITHIN REACH. NO SIGNS OF DISTRESS AT THIS TIME. WILL CONTINUE TO MONITOR.
--- NOTE | 2019-05-22 07:32 | NUR ---
PT SEEN AND EXAMINED BY DR. LYNN. NO NEW ORDER RECEIVED AT THIS TIME.
--- NOTE | 2019-05-22 07:58 | NUR ---
PT SEEN BY DR. GARSIA. UPDATES GIVEN ON PT'S CONDITION. NO NEW ORDER RECEIVED AT THIS TIME.
[2019-05-22 08:01] LABS: HEMOGLOBIN 6.8 g/dL (12.0-16.0)
[2019-05-22] MEDS: DOCUSATE 100 MG/10 ML UDC GT SCH (08:12)
[2019-05-22] MEDS: FERROUS SULFATE 300 MG/5 ML UDC NG SCH (08:12)
[2019-05-22] MEDS: PANTOPRAZOLE 40 MG INJ VIAL IVP SCH (08:12)
[2019-05-22] MEDS: ASCORBIC ACID 500 MG/5 ML ORASYR GT SCH (08:12)
[2019-05-22] MEDS: methylPREDNISolone SS 40 MG/ML VIAL IVP SCH ×2 (08:12→20:29)
[2019-05-22] MEDS: LACTOBACILLUS RHAMNOSUS GG 1 EACH CAP PO SCH (08:12)
[2019-05-22] MEDS: NYSTATIN/TRIAMCINOLONE CRM 15 GM TUBE TP SCH ×2 (08:13→20:18)
--- NOTE | 2019-05-22 08:32 | NUR ---
MEDICATIONS ADMINISTERED ORDERED. VAP ORAL CARE, URIOSTEGUI CARE GIVEN. TURNED AND REPOSITIONED. PT TOLERATED WELL.
--- NOTE | 2019-05-22 08:55 | NUR ---
DR. RAMOS IN TO SEE PT. WILL FOLLOW UP ON ORDERS.
[2019-05-22] MEDS: MIDAZOLAM MDV 100 MG in NACL 0.9% 80 ML IV PRN ×2 (10:29→23:23)
--- NOTE | 2019-05-22 12:00 | NUR ---
VAP ORAL CARE GIVEN. TURNED AND REPOSITIONED. SAFETY PRECAUTIONS IN PLACE.
--- NOTE | 2019-05-22 12:00 | NUR ---
BLOOD TRANSFUSION STARTED. WILL MONITOR FOR S/SX OF ADVERSE REACTIONS.
[2019-05-22] MEDS: SKINTEGRITY HYDROGEL TP SCH (12:09)
--- NOTE | 2019-05-22 12:20 | NUR ---
GLORIA [facility]Z [facility] IN THE UNIT. PER GLORIA, NO ICU ROOM IN [facility] AT THIS TIME. WILL CALL IF THERE IS AVAILABLE ICU ROOM IN [facility].
[2019-05-22] MEDS: VANCOMYCIN 1,000 MG in DEXTROSE 5% 250 ML IV SCH ×2 (12:45→23:18)
[2019-05-22] MEDS: LORazepam 1 MG TAB GT PRN (13:12)
--- NOTE | 2019-05-22 14:30 | NUR ---
BLOOD TRANSFUSION COMPLETED. TOLERATED WELL. PT IS AFEBRILE, NO SIGNS OF DISTRESS NOTED.
--- NOTE | 2019-05-22 14:45 | NUR ---
DR. HUSTON IN THE UNIT, SEEN PT, NO NEW ORDER RECEIVED AT THIS TIME.
--- NOTE | 2019-05-22 16:00 | NUR ---
PT TURNED AND REPOSITIONED FOR COMFORT AND PRESSURE AREAS OFF LOADED. VAP ORAL CARE GIVEN. PT TOLERATED WELL.
[2019-05-22 16:51] LABS: BASOPHILS % (AUTO) 0.2 % (0.0-2.0); HEMATOCRIT 24.9 % (36-48); HEMOGLOBIN 8.1 g/dL (12.0-16.0); LYMPHOCYTES # (AUTO) 0.1 K/uL (2.5-16.5); LYMPHOCYTES % (AUTO) 0.6 % (20.5-51.1); MEAN CORPUSCULAR HEMOGLOBIN 28 pg (27-31); MEAN CORPUSCULAR HGB CONC 32 g/dL (33-37); MEAN CORPUSCULAR VOLUME 84.8 fL (80-94); MONOCYTES # (AUTO) 0.7 K/uL (0.8-1.0); MONOCYTES % (AUTO) 4.1 % (1.7-9.3); NEUTROPHILS % (AUTO) 95.1 % (42.2-75.2); PLATELET COUNT (AUTO) 97 K/uL (140-450); RED BLOOD CELL COUNT(AUTO) 2.93 MIL/uL (4.20-5.40); RED CELL DISTRIBUTION WIDTH 21.4 % (11.6-13.7); WHITE BLOOD COUNT (AUTO) 15.8 K/uL (4.8-10.8)
--- NOTE | 2019-05-22 18:20 | NUR ---
DR. DOLAN IN TO SEE PT. UPDATES GIVEN ON PT'S CONDITION. WILL FOLLOW UP WITH ANY NEW ORDERS.
--- NOTE | 2019-05-22 19:23 | NUR ---
REPORT GIVEN TO PRIVATE DUTY AIDE RN FOR CONTINUITY OF CARE. NO S/SX OF DISTRESS NOTED AT THIS TIME.
--- NOTE | 2019-05-22 19:24 | NUR ---
REPORT RECEIVED FROM AM NURSE AT BEDSIDE. PT IN STABLE CONDITION. AAOX0-1. PT IS SEDATED ON FENTANYL@2MCG/KG/HR OR 13.6ML/HR AND VERSED 7MG/HR OR 7ML/HR BOTH FOR RASS-3. NO COMPLAINTS OF PAIN. NO SOB ON TRACH TO VENT. SETTINGS ARE ACVC, FIO2 50%, VT 450, RR 16, PEEP 8. AFEBRILE. PT HAS URIOSTEGUI. PT HAS GTUBE ON FEEDINGS GLUCERNA 1.2@65ML/HR WITH 100ML H20 FLUSH Q4H. IV SITE R UA DOUBLE LUMEN PICC RUNNING NS@50ML/HR PATENT AND INTACT. FENTANYL AND VERSED PATENT AND INTACT. SKIN WARM, DRY, AND NOT INTACT DUE TO BILATERAL FA SKIN TEARS, R LOWER EXTREMITY OPEN WOUND, INCONTINENT DERMATITIS, AND L LOWER BACK OPEN WOUND. BED LOCKED IN LOW POSITION. CALL WATKINS WITHIN REACH. SAFETY PRECAUTION IN PLACE. ALL NEEDS MET AT THIS TIME.
[2019-05-22] MEDS: ATORVASTATIN 80 MG TAB GT SCH (20:18)
--- NOTE | 2019-05-22 20:18 | NUR ---
LIPITOR GIVEN THROUGH [employer]. MERREM HUNG AND RUNNING. LANTUS GIVEN FOR BS 294. MYCOLOG APPLIED. SOLUMEDROL GIVEN IVP. PT TOLERATED WELL.
[2019-05-22] MEDS: INSULIN LANTUS 100 UNITS/ML 10 ML VIAL SUBQ SCH (20:20)
[2019-05-22] MEDS: MORPHINE SULFATE 2 MG/ML SYR IVP PRN (21:23)
--- NOTE | 2019-05-22 21:23 | NUR ---
MORPHINE GIVEN FOR FLACC 5. PT TOLERATED WELL.
--- NOTE | 2019-05-22 23:00 | NUR ---
CALLED RT DUE TO PATIENT SATURATIONS BETWEEN 88-90%. PT WAS SUCTIONED AND FIO2 INCREASED TO 60%.
--- NOTE | 2019-05-22 23:18 | NUR ---
JOHN MEDINA AND RUNNING. BS 217. 4 UNITS OF HUMALOG GIVEN. PT TOLERATING WELL.
--- NOTE | 2019-05-22 23:23 | NUR ---
NEW BAG VERSED HUNG. PREVIOUS BAG COMPLETELY EMPTY.
[2019-05-23] VITALS (106 sets, daily range): BP systolic 98–195; BP diastolic 43–114
[2019-05-23] MEDS: Z-GUARD PASTE TP SCH ×2 (01:37→12:46)
[2019-05-23] MEDS: NACL 0.9% 1,000 ML IV SCH ×2 (01:37→17:27)
[2019-05-23] MEDS: HYDRAGUARD CREAM TP SCH ×2 (01:38→12:45)
[2019-05-23] MEDS: fentaNYL 1 MG in NACL 0.9% 80 ML IV PRN ×3 (01:45→16:30)
--- NOTE | 2019-05-23 01:45 | NUR ---
NEW BAG OF FENTANYL HUNG. PREVIOUS BAG EMPTY. HYDRAGUARD AND ZGUARD APPLIED.
--- NOTE | 2019-05-23 03:30 | NUR ---
PATIENT CLEANED DUE TO 1xBM. LINENS CHANGED URIOSTEGUI CARE DONE. PT TURNED. DRESSINGS CHANGED. VAP ORAL CARE GIVEN.
[2019-05-23] MEDS: MEROPENEM 500 MG in NACL 0.9% 50 ML IV SCH ×3 (05:04→20:07)
[2019-05-23] MEDS: BLOOD GLUCOSE MONITORING 1 DEV DEV FS SCH ×4 (05:04→23:18)
--- NOTE | 2019-05-23 05:04 | NUR ---
YOSVANY MEDINA AND JERMAINE. BS 151. 2 UNITS OF HUMALOG GIVEN.
[2019-05-23] MEDS: INSULIN LISPRO SLIDING SCALE 100 UNITS/ML VIAL SUBQ PRN ×2 (05:05→17:19)
[2019-05-23 06:22] LABS: BASOPHILS % (AUTO) 0.1 % (0.0-2.0); EOSINOPHILS % (AUTO) 0.2 % (0.0-4.0); HEMATOCRIT 26.2 % (36-48); HEMOGLOBIN 8.7 g/dL (12.0-16.0); LYMPHOCYTES # (AUTO) 0.2 K/uL (2.5-16.5); LYMPHOCYTES % (AUTO) 1.5 % (20.5-51.1); MEAN CORPUSCULAR HEMOGLOBIN 28 pg (27-31); MEAN CORPUSCULAR HGB CONC 33 g/dL (33-37); MEAN CORPUSCULAR VOLUME 84.6 fL (80-94); MONOCYTES # (AUTO) 0.5 K/uL (0.8-1.0); MONOCYTES % (AUTO) 3.7 % (1.7-9.3); NEUTROPHILS # (AUTO) 13.8 K/uL (1.8-7.7); NEUTROPHILS % (AUTO) 94.5 % (42.2-75.2); PLATELET COUNT (AUTO) 107 K/uL (140-450); RED BLOOD CELL COUNT(AUTO) 3.09 MIL/uL (4.20-5.40); RED CELL DISTRIBUTION WIDTH 21.6 % (11.6-13.7); WHITE BLOOD COUNT (AUTO) 14.6 K/uL (4.8-10.8)
[2019-05-23 06:31] LABS: ANION GAP 10.1 (8-16); CARBON DIOXIDE 28.2 mmol/L (21-32); CREATININE 0.6 mg/dL (0.6-1.3); POTASSIUM 5.3 mmol/L (3.5-5.1)
--- NOTE | 2019-05-23 06:55 | NUR ---
PT SLEEPING COMFORTABLY BUT AROUSABLE. PT IN STABLE CONDITION.
[2019-05-23] MEDS ORDERED: ACETYLCYSTEINE 10% (100 MG/ML) 100 MG/ML VIAL INH SCH ×2 (07:00→08:00)
--- NOTE | 2019-05-23 07:20 | NUR ---
RECEIVED REPORT FROM [employer] NURSE PETER AT BEDSIDE. PT AAOX0-1. PERRL. PT IS SEDATED, RASS -3, ON FENTANYL 2MCG/KG/HR AND VERSED 7MG/HR. PT FOLLOWS SOME SIMPLE COMMANDS. TRACH TO VENT. SETTINGS ARE AC/PRVC, FIO2 65%, VT 450, RR 16, PEEP 8. TEMP 99.0F. S1S2 HEARD, WITH EJECTION MURMURS. LUNGS CLEAR AND DIMINISHED. BOWEL SOUNDS ACTIVE. URIOSTEGUI CATH IN PLACE, DRAINING, CLEAR YELLOW URINE WITH SEDIMENTS. G TUBE AT LUQ, ON FEEDINGS GLUCERNA 1.2 AT 65ML/HR WITH H20 FLUSH 100ML Q4H. PICC LINE TO R UA DOUBLE LUMEN RUNNING NS AT50ML/HR, REINFORCED DRESSING, SITE IS ASYMPTOMATIC. SKIN WARM, DRY, AND NOT INTACT, RIGHT LEG WOUND, RIGHT FA SKIN TEAR, INCONTINENT DERMATITIS ON PERIAREA AND BUTTOCKS, SEE WOUND ASSESSMENT FOR DETAIL. HOB AT 30 DEG. BED LOCKED IN LOWEST POSITION. SAFETY PRECAUTIONS IN PLACE. Addendum: 05/23/19 at 0809 by Robbin Love RN DRY WEIGHT 68KG.
--- NOTE | 2019-05-23 07:36 | NUR ---
DR. SEKOU GILLESPIE AT BEDSIDE NEW RESPIRATORY ORDERS: MUCOMYST 1ml/10% Q6WAR X 2 DAYS; ROUTINE ABG CALL MD AND/OR RESIDENT WITH RESULTS
[2019-05-23] MEDS: ALBUTEROL SULFATE/IPRATROPIU 3 ML SOL IH SCH ×3 (07:54→19:20)
[2019-05-23] MEDS: BUDESONIDE 0.5 MG/2 ML NEBU INH SCH ×2 (07:54→19:20)
[2019-05-23] MEDS: methylPREDNISolone SS 40 MG/ML VIAL IVP SCH ×2 (08:14→20:07)
[2019-05-23] MEDS ORDERED: SODIUM POLYSTYRENE 15 GM/60 ML UDBTL PO SCH (08:15)
[2019-05-23] MEDS: LACTOBACILLUS RHAMNOSUS GG 1 EACH CAP PO SCH (08:15)
[2019-05-23] MEDS: PANTOPRAZOLE 40 MG INJ VIAL IVP SCH (08:15)
[2019-05-23] MEDS: DOCUSATE 100 MG/10 ML UDC GT SCH (08:16)
[2019-05-23] MEDS: ASCORBIC ACID 500 MG/5 ML ORASYR GT SCH (08:16)
[2019-05-23] MEDS: FERROUS SULFATE 300 MG/5 ML UDC NG SCH (08:16)
[2019-05-23] MEDS: NYSTATIN/TRIAMCINOLONE CRM 15 GM TUBE TP SCH ×2 (08:17→20:07)
[2019-05-23] MEDS: LORazepam 1 MG TAB GT PRN (08:30)
[2019-05-23] MEDS ORDERED: ALBUTEROL SULFATE/IPRATROPIU 3 ML SOL IH ONE (08:38)
--- NOTE | 2019-05-23 09:00 | NUR ---
STABLE IRRITABLE ON OCCASION GOOD CHEST RISE DEEP TRACHEAL SUCTION FOR SCATTERED THICK BROWN SECRETIONS Addendum: 05/23/19 at 0921 by Osorio Goldman RT REVIEWED ABG SAMPLE REPORT AT 0833 SATURATION 96% ON FIO2 OF 65% TITRATED FIO2 TO 60% RHYS/RIKY OROPEZA
--- NOTE | 2019-05-23 10:00 | NUR ---
PT HAD BM, SOFT BROWN STOOL. BED BATH GIVEN, REPOSITIONED PT.
--- NOTE | 2019-05-23 10:35 | NUR ---
INCREASED FENTANYL BECAUSE PT IS GETTING RESTLESS.
--- NOTE | 2019-05-23 10:47 | NUR ---
PT RR 35/MIN, NOTIFIED DR ANDRADE ABOUT VITALS. MADE HIM AWARE FENTANYL WAS INCREASED FROM 2MCG/KG/HR TO 2.5MCG/KG/HR ABOUT 10MIN AGO.
--- NOTE | 2019-05-23 11:18 | NUR ---
RESTING WELL GOOD CHEST RISE DEEP TRACHEAL SUCTION FOR LARGE THICK YELLOW/BROWN SECRETIONS AIRWAY PATENT
--- NOTE | 2019-05-23 11:35 | NUR ---
SATURATION 97% ON FIO2 OF 60% TITRATED FIO2 TO 55 % RHYS/RN NOTIFIED
[2019-05-23] MEDS: VANCOMYCIN 1,000 MG in DEXTROSE 5% 250 ML IV SCH ×2 (11:36→23:13)
[2019-05-23] MEDS: ACETAMINOPHEN 325 MG TAB PO PRN (12:38)
[2019-05-23] MEDS: MIDAZOLAM MDV 100 MG in NACL 0.9% 80 ML IV PRN (12:45)
[2019-05-23] MEDS: SKINTEGRITY HYDROGEL TP SCH (12:46)
[2019-05-23] MEDS: ACETYLCYSTEINE 10% (100 MG/ML) 100 MG/ML VIAL INH SCH ×2 (13:46→19:20)
--- NOTE | 2019-05-23 13:46 | NUR ---
SEDATED RESTING WELL NO DISTRESS NOTED EQUAL CHEST RISE DEEP TRACHEAL SUCTION FOR SMALL THICK BROWN SECRETIONS AIRWAY PATENT
--- NOTE | 2019-05-23 14:00 | NUR ---
PT HAD MULTIPLE LOOSE BM. CLEANED PT AND CHANGED ALL BED LINENS. PLACED A STOOL COLLECTION BAG FOR THE PT. ALL SOILED DRESSINGS HAS BEEN CHANGED. TWO NEW OPTIFOAMS PLACED OVER THE BUTTOCKS. Z GUARD REAPPLIED TO PERINEAL AREA AND BUTTOCKS.
--- NOTE | 2019-05-23 15:44 | NUR ---
STABLE GOOD CHEST RISE DEEP TRACHEAL SUCTIONED BY RHYS/RN FOR LARGE THICK YELLOW/BROWN SECRETIONS AIRWAY PATENT
--- NOTE | 2019-05-23 16:00 | NUR ---
CHANGED FEEDING BOTTLE AND FEEDING TUBE. GLUCERNA RUNNING AT 65ML/HR, H2O FLUSH 100ML Q4H.
--- NOTE | 2019-05-23 17:25 | NUR ---
SEDATED NO DISTRESS NOTED EQUAL CHEST RISE DEEP TRACHEAL SUCTION FOR MODERATE THICK YELLOW/BROEN SECRETIONS AIRWAY PATENT SATURATION 95%-96% TITRATED FIO2 TO 50% RHYS/RN AWARE
--- NOTE | 2019-05-23 18:11 | NUR ---
DR DOLAN CAME AND ASSESSED PT. MADE DR DOLAN AWARE THAT PT HAS THICK BROWN SECRETIONS AND DR RAMOS ADDED MUCOMYST Q6H IN THE MORNING. PT HAD KAYEXALATE IN THE MORNING FOR K 5.3, PT HAS LOOSE BM AND A RECTAL BAG HAS BEEN PLACED ON THE PT.
--- NOTE | 2019-05-23 19:08 | NUR ---
REPORT RECEIVED FROM AM NURSE AT BEDSIDE. PT IN STABLE CONDITION. AAOX0-1. PT IS SEDATED ON FENTANYL AND VERSED. FLACC 0. NO SOB TRACH TO TRACH. VENT SETTINGS ARE FIO2@50%, VT 450, RR 16, PEEP 5. AFEBRILE. PT IS BEDBOUND. PT HAS URIOSTEGUI. PT HAS RECTAL BAG. PT HAS GTUBE ON TUBE FEEDING. GLUCERNA 1.2@65ML/HR WITH 100ML H20 FLUSH Q4H PATENT AND INTACT. IV SITE R UA PICC LINE DOUBLE LUMEN 1 LUMEN RUNNING NS@50ML/HR AND VERSED@8ML/HR PATENT AND INTACT. OTHER LUMEN FENTANYL@2MCG/HR OR 13.6ML/HR PATENT AND INTACT. SKIN WARM, DRY, AND NOT INTACT DUE TO MULTIPLE WOUNDS ON THE R ARM SKIN TEAR, R LOWER EXTREMITY OPEN WOUND, L LOWER BACK OPEN WOUND, AND SACRAL SKIN TEAR. BED LOCKED IN LOW POSITION. CALL WATKINS WITHIN REACH. SAFETY PRECAUTION IN PLACE. ALL NEEDS MET AT THIS TIME.
--- NOTE | 2019-05-23 19:20 | NUR ---
RECEIVED PT FROM DAY SHIFT ON PRVC 16,500,I-TIME .80,+5,50%.VENT PLUGGED INTO RED OUTLET. BMV HANGING ON THE VENTILATOR.ALARMS AUDIBLE AND WORKING. TRACH PORTEX 8 IS SECURED AND INTACT.STOMA IS CLEAR AND PATENT. PT RECEIVED PULMICORT,MUCOMYST, AND DUONEB.PT REMAINS COMFORTABLE. WILL CONT TO MONITOR
[2019-05-23] MEDS: ATORVASTATIN 80 MG TAB GT SCH (20:06)
--- NOTE | 2019-05-23 20:07 | NUR ---
MERREM HUNG AND RUNNING. SOLUMEDROL GIVEN IVP. MYCOLOG APPLIED. LIPITOR CRUSHED AND GIVEN THROUGH GTUBE. RESIDUAL OF 40ML. BS 142. 15 UNITS OF LANTUS GIVEN. PT TOLERATED WELL.
[2019-05-23] MEDS: INSULIN LANTUS 100 UNITS/ML 10 ML VIAL SUBQ SCH (20:12)
--- NOTE | 2019-05-23 20:36 | NUR ---
CALL MADE TO [facility], CHARGE NURSE SPOKE WITH CAFE MANAGER, CLARIFIED NO BED FOR THE NIGHT FOR PATIENT TRANSFER, THEIR ICU IS FULL. [facility] ICU CAFE MANAGER MADE AWARE.
--- NOTE | 2019-05-23 21:20 | NUR ---
IN TO ASSESS PATIENT, UPDATED ON PATIENTS CONDITION, NO NEW ORDERS AT THIS TIME.
--- NOTE | 2019-05-23 22:00 | NUR ---
PT SLEEPING COMFORTABLY AND SEDATED. NO S/S OF DISTRESS NOTED. WILL CONTINUE TO MONITOR.
--- NOTE | 2019-05-23 22:50 | NUR ---
ROUTINE VENT CHECK. SX SMALL AMOUNT OF THICK BROWN SECRETIOND.PT REMAINS IN STABLE CONDITION. RN AT BEDSIDE. WILL CONT TO MONITOR
--- NOTE | 2019-05-23 23:13 | NUR ---
JOHN MEDINA AND JERMAINE. BS 147. NO INSULIN COVERAGE NEEDED.
[2019-05-24] VITALS (82 sets, daily range): BP systolic 84–182; BP diastolic 37–98
--- NOTE | 2019-05-24 00:12 | NUR ---
PROVIDED VAP ORAL CARE, PT TOLERATED WELL. TURNED AND REPOSITIONED PATIENT, OFFLOADED PRESSURE AREAS, HOB 30 DEGREES. BED LOCKED AND IN LOWEST POSITION, SAFETY ALARMS IN PLACE.
[2019-05-24] MEDS: fentaNYL 1 MG in NACL 0.9% 80 ML IV PRN ×3 (00:41→17:20)
--- NOTE | 2019-05-24 00:41 | NUR ---
FENTANYL NEW BAG HUNG. RASS-3
[2019-05-24] MEDS: HYDRAGUARD CREAM TP SCH ×2 (00:48→13:22)
[2019-05-24] MEDS: Z-GUARD PASTE TP SCH ×2 (00:48→13:22)
--- NOTE | 2019-05-24 00:48 | NUR ---
Z GUARD AND HYDRAGUARD APPLIED.
[2019-05-24] MEDS: MIDAZOLAM MDV 100 MG in NACL 0.9% 80 ML IV PRN ×2 (02:10→16:49)
--- NOTE | 2019-05-24 02:10 | NUR ---
NEW VERSED BAG HUNG AND RUNNING. PREVIOUS BAG 0ML LEFT.
--- NOTE | 2019-05-24 02:41 | NUR ---
ROUTINE VENT CHECK. SX MODERATE AMOUNT OF THICK BROWN YELLOWISH SECRETION. PT IS IN NO DISTRESS. WILL CONT TO MONITOR
[2019-05-24] MEDS: LORazepam 1 MG TAB GT PRN ×2 (03:43→16:06)
--- NOTE | 2019-05-24 03:43 | NUR ---
ATIVAN GIVEN THROUGH GTUBE FOR AGITATION. PT TOLERATED WELL.
--- NOTE | 2019-05-24 04:00 | NUR ---
PATIENT CLEANED DUE TO RECTAL BAG LEAKING. HAD LOTS OF LOOSE, WATERY STOOL. DRESSINGS CHANGED. URIOSTEGUI CARE GIVEN. LINENS CHANGED. VAP ORAL CARE GIVEN. PT IN STABLE CONDITION.
[2019-05-24] MEDS: MEROPENEM 500 MG in NACL 0.9% 50 ML IV SCH ×2 (05:07→14:14)
[2019-05-24] MEDS: BLOOD GLUCOSE MONITORING 1 DEV DEV FS SCH ×3 (05:07→18:10)
--- NOTE | 2019-05-24 05:07 | NUR ---
YOSVANY HUNG AND RUNNING. BS 129. NO INSULIN COVERAGE NEEDED.
--- NOTE | 2019-05-24 05:11 | NUR ---
PT REMAINS ON DOCUMENTED SETTING/ VENT PLUGGED INTO RED OUTLET. BMV BY BEDSIDE. ALARMS AUDIBLE AND WORKING. TRACH IS SECURE AND INTACT/. WILL GIVE REPORT PT TO DAY SHIFT
[2019-05-24 06:13] LABS: BASOPHILS % (AUTO) 0.4 % (0.0-2.0); EOSINOPHILS # (AUTO) 0.1 K/uL (0-0.4); EOSINOPHILS % (AUTO) 0.8 % (0.0-4.0); HEMATOCRIT 25.8 % (36-48); HEMOGLOBIN 8.6 g/dL (12.0-16.0); LYMPHOCYTES # (AUTO) 0.2 K/uL (2.5-16.5); LYMPHOCYTES % (AUTO) 1.9 % (20.5-51.1); MEAN CORPUSCULAR HEMOGLOBIN 28 pg (27-31); MEAN CORPUSCULAR HGB CONC 33 g/dL (33-37); MEAN CORPUSCULAR VOLUME 85.1 fL (80-94); MONOCYTES # (AUTO) 0.4 K/uL (0.8-1.0); MONOCYTES % (AUTO) 3.6 % (1.7-9.3); NEUTROPHILS # (AUTO) 9.9 K/uL (1.8-7.7); NEUTROPHILS % (AUTO) 93.3 % (42.2-75.2); PLATELET COUNT (AUTO) 86 K/uL (140-450); RED BLOOD CELL COUNT(AUTO) 3.03 MIL/uL (4.20-5.40); RED CELL DISTRIBUTION WIDTH 22.1 % (11.6-13.7); WHITE BLOOD COUNT (AUTO) 10.6 K/uL (4.8-10.8)
[2019-05-24] MEDS ORDERED: FUROSEMIDE 40 MG/4 ML VIAL IVP ONE (06:20)
--- NOTE | 2019-05-24 06:27 | NUR ---
LASIX GIVEN IVP. PT TOLERATED WELL.
[2019-05-24] MEDS: ALBUTEROL SULFATE/IPRATROPIU 3 ML SOL IH SCH ×2 (06:49→13:18)
[2019-05-24] MEDS: ACETYLCYSTEINE 10% (100 MG/ML) 100 MG/ML VIAL INH SCH ×2 (06:49→13:18)
[2019-05-24] MEDS: BUDESONIDE 0.5 MG/2 ML NEBU INH SCH (06:50)
[2019-05-24 06:54] LABS: ANION GAP 6.9 (8-16); CARBON DIOXIDE 31.8 mmol/L (21-32); CREATININE 0.5 mg/dL (0.6-1.3); POTASSIUM 4.7 mmol/L (3.5-5.1)
--- NOTE | 2019-05-24 07:35 | NUR ---
RECEIVED REPORT FROM MEDICAL ASST NURSE PETER AT BEDSIDE. PT AAOX0-1. PERRL. PT IS SEDATED, RASS -3, ON FENTANYL 2MCG/KG/HR (13.6ML/HR) AND VERSED 8MG/HR (8ML/HR). TRACH TO VENT. SETTINGS ARE AC/PRVC, FIO2 50%, VT 450, RR 16, PEEP 8. TEMP 100.6.0 WILL GIVE TYLENOL, HR 110, O2SAT 91, BP 1468/75. LUNGS CLEAR AND DIMINISHED. BOWEL SOUNDS ACTIVE X4Q. URIOSTEGUI CATH IN PLACE, DRAINING, CLEAR [place]IN[place] COLOR URINE WITH SEDIMENTS, MD AWARE PER REPORT. G TUBE FEEDING GLUCERNA 1.2 AT 65ML/HR WITH H20 FLUSH 100ML Q4H. PICC LINE TO R UA RUNNING NS AT50ML/HR, , SITE IS WNL. SKIN WARM, DRY COLOR WNL, AND NOT INTACT, RIGHT LEG WOUND, RIGHT FA SKIN TEAR, INCONTINENT DERMATITIS ON PERIAREA AND BUTTOCKS, SEE WOUND DOC, BILAT LE, WITH PITTING EDEMA R>L. HOB AT 30 DEG. BED LOCKED IN LOWEST POSITION. SAFETY PRECAUTIONS IN PLACE, POC REVIEWED.
[2019-05-24] MEDS: ASCORBIC ACID 500 MG/5 ML ORASYR GT SCH (08:10)
[2019-05-24] MEDS: FERROUS SULFATE 300 MG/5 ML UDC NG SCH (08:10)
[2019-05-24] MEDS: LACTOBACILLUS RHAMNOSUS GG 1 EACH CAP PO SCH (08:11)
[2019-05-24] MEDS: ACETAMINOPHEN 325 MG TAB PO PRN (08:11)
[2019-05-24] MEDS: DOCUSATE 100 MG/10 ML UDC GT SCH (08:12)
[2019-05-24] MEDS: PANTOPRAZOLE 40 MG INJ VIAL IVP SCH (08:12)
[2019-05-24] MEDS: methylPREDNISolone SS 40 MG/ML VIAL IVP SCH (08:12)
[2019-05-24] MEDS: NYSTATIN/TRIAMCINOLONE CRM 15 GM TUBE TP SCH (08:14)
--- NOTE | 2019-05-24 09:05 | NUR ---
DR LYNN AT BEDSIDE, REPORTED OF R LEG SWELLING, OK TO DC CHAI WRAP TO RLE, REPORTED HEMATURIA AND FEVER.
--- NOTE | 2019-05-24 09:20 | NUR ---
DR RAMOS AT BEDSIDE, PLAN TO START ZYPREXA THEN TRY TO WEAN OFF SEDATION DRIPS.
[2019-05-24] MEDS: OLANZapine 5 MG TAB PO SCH ×2 (09:25→17:57)
[2019-05-24] MEDS: VANCOMYCIN 1,000 MG in DEXTROSE 5% 250 ML IV SCH (11:39)
--- NOTE | 2019-05-24 12:45 | NUR ---
WOUND CARE DONE, DRESSING CHANGED, GT CARE, URIOSTEGUI CARE DONE, PERICARE DONE, PT RESTING QUIETLY, VITALS STABLE FEVER REDUCED, APPEARS IN NO ACUTE DISTRESS, PICC DRESSING AND CAPS CHANGED PER PROTOCOL.
[2019-05-24] MEDS: SKINTEGRITY HYDROGEL TP SCH (13:22)
--- NOTE | 2019-05-24 14:47 | NUR ---
05/24/19 FOLLOW UP COMPLETED PLEASE REFER TO NUTRITION ASSESSMENT UNDER CARE ACTIVITY FOR ESTIMATED NUTRITIONAL NEEDS. 1. CONTINUE GLUCERNA 1.2 @65 ML/HR X 24 HR -THIS WILL PROVIDE 1875 KCAL, 93.6G PROTEIN, AND 1255 ML OF WATER; SUFFICIENT TO MEET 100% OF PATIENT'S DAILY ESTIMATED NUTRITIONAL NEEDS. 2. CONTINUE VITAMIN C SUPPLEMENTATION FOR WOUND HEALING. 3. RECOMMEND FREE WATER FLUSH OF 60 ML Q6H 4. F/U 2-3 DAYS; HIGH RISK ANGELITA RICHTER RD
--- NOTE | 2019-05-24 15:37 | NUR ---
DAUGHTER CALLED TO BY RIKY ARRIAGA TO NOTIFY THAT PATIENT HAS BED AVAILABLE AT [facility], SHE WILL TRANSFER TODAY TO ROOM 503, WILL ARRANGE [facility]SP[facility]
--- NOTE | 2019-05-24 15:38 | NUR ---
PT SUCTIONED OBTAINED SMALL AMOUNT OF THICK BROWN SECRETIONS, AIRWAY IS PATENT AND TRACH IS SECURE. PT NOT IN ANY DISTRESS AT THIS TIME. WILL CONTINUE TO MONITOR.
[2019-05-24] MEDS ORDERED: HUMSLIDE SUBQ (15:48)
[2019-05-24] MEDS ORDERED: ACET-1182 PO (15:48)
[2019-05-24] MEDS ORDERED: PANT40PD7 IVP (15:48)
[2019-05-24] MEDS ORDERED: ASCO-672 GT (15:48)
[2019-05-24] MEDS ORDERED: D50SYR IVP (15:48)
[2019-05-24] MEDS ORDERED: OLAN5TAB30 PO (15:48)
[2019-05-24] MEDS ORDERED: LANTUS SUBQ (15:48)
[2019-05-24] MEDS ORDERED: FER300L NG (15:48)
[2019-05-24] MEDS ORDERED: LIP80 GT (15:48)
[2019-05-24] MEDS ORDERED: HYDGEL TP (15:48)
[2019-05-24] MEDS ORDERED: LACT10CA PO (15:48)
[2019-05-24] MEDS ORDERED: Hydraguard TP ×2 (15:48)
[2019-05-24] MEDS ORDERED: GLUC-805 FS (15:48)
[2019-05-24] MEDS ORDERED: METH40PD15 IVP ×2 (15:48→17:14)
[2019-05-24] MEDS ORDERED: LORA-476 GT (15:48)
[2019-05-24] MEDS ORDERED: PUL.5N INH (15:48)
[2019-05-24] MEDS ORDERED: ZGUARD TP ×2 (15:48)
[2019-05-24] MEDS ORDERED: COL100L GT (15:48)
[2019-05-24] MEDS ORDERED: ALBU3SOL83 IH (15:48)
[2019-05-24] MEDS ORDERED: VANC1PLA7 IV (15:50)
[2019-05-24] MEDS ORDERED: Vancomycin Per Pharmacy MC (15:50)
--- NOTE | 2019-05-24 15:50 | NUR ---
RT AT BED SIDE FOR TRACH CARE, PT NOW MORE RESTLESS, MOVING ARMS TOWARDS VENT TUBINGS, WILL GIVE PRN ATIVAN
[2019-05-24] MEDS ORDERED: MERO500P2 IV (16:48)
--- NOTE | 2019-05-24 17:54 | NUR ---
REPORT GIVEN TO BRIANNE LAN AT [facility] [phone]. AWAITING [facility] TRANSPORT LEGAL [employer] AT 1830
[2019-05-24] MEDS: INSULIN LISPRO SLIDING SCALE 100 UNITS/ML VIAL SUBQ PRN (18:09)
--- NOTE | 2019-05-24 18:56 | NUR ---
REPORT GIVEN TO BALWINDER MENDOZA, PT CONTINUES WITH FENTANYL DRIP AT 2MCG/KG/HR (13.6ML/HR), VERSED AT 7MG/HR (7ML/HR), VERSED WITH 86MG LEFT IN THE BAG, FENTANYL WITH 796MCG LEFT IN THE BAG, BOTH SIGNED OVER TO RIKY MENDOZA FOR TRANSPORT.
== END 2019-05-24 18:50 | DRG 4 ==
LOC: MED 08:58 → MIC 11:39
PROVIDERS: ADMIT Family Medicine; ATTEND Family Medicine
PROC: 5A1955Z Respiratory Ventilation, Greater than 96 Consecutive Hours (ICD-10-PCS; principal; 2019-05-03)
PROC: 0BH17EZ Insertion of Endotracheal Airway into Trachea, Via Natural or Artificial Opening (ICD-10-PCS; 2019-05-03)
PROC: 02HV33Z Insertion of Infusion Device into Superior Vena Cava, Percutaneous Approach (ICD-10-PCS; 2019-05-03)
PROC: B548ZZA Ultrasonography of Superior Vena Cava, Guidance (ICD-10-PCS; 2019-05-03)
PROC: 0B113F4 Bypass Trachea to Cutaneous with Tracheostomy Device, Percutaneous Approach (ICD-10-PCS; 2019-05-13)
PROC: 0DH63UZ Insertion of Feeding Device into Stomach, Percutaneous Approach (ICD-10-PCS; 2019-05-13)
PROC: 0DJ08ZZ Inspection of Upper Intestinal Tract, Via Natural or Artificial Opening Endoscopic (ICD-10-PCS; 2019-05-13)
PROC: 30233N1 Transfusion of Nonautologous Red Blood Cells into Peripheral Vein, Percutaneous Approach (ICD-10-PCS; 2019-05-19)
DX: A41.9 Sepsis, unspecified organism (principal); L89.813 Pressure ulcer of head, stage 3; J18.9 Pneumonia, unspecified organism; J96.21 Acute and chronic respiratory failure with hypoxia; I50.43 Acute on chronic combined systolic (congestive) and diastolic (congestive) heart failure; I62.03 Nontraumatic chronic subdural hemorrhage; L97.919 Non-pressure chronic ulcer of unspecified part of right lower leg with unspecified severity; E46 Unspecified protein-calorie malnutrition; I42.9 Cardiomyopathy, unspecified; M35.1 Other overlap syndromes; D50.9 Iron deficiency anemia, unspecified; D69.6 Thrombocytopenia, unspecified; Z68.27 Body mass index [BMI] 27.0-27.9, adult; E78.5 Hyperlipidemia, unspecified; E83.39 Other disorders of phosphorus metabolism; E83.41 Hypermagnesemia; E83.42 Hypomagnesemia; E87.6 Hypokalemia; G43.909 Migraine, unspecified, not intractable, without status migrainosus; I11.0 Hypertensive heart disease with heart failure; I25.10 Atherosclerotic heart disease of native coronary artery without angina pectoris; I35.0 Nonrheumatic aortic (valve) stenosis; I50.9 Heart failure, unspecified; J84.10 Pulmonary fibrosis, unspecified; M06.9 Rheumatoid arthritis, unspecified; M32.9 Systemic lupus erythematosus, unspecified; R13.10 Dysphagia, unspecified; E11.42 Type 2 diabetes mellitus with diabetic polyneuropathy; D64.9 Anemia, unspecified; R31.9 Hematuria, unspecified; S70.12XA Contusion of left thigh, initial encounter; X58.XXXA Exposure to other specified factors, initial encounter; Y93.89 Activity, other specified; Y92.89 Other specified places as the place of occurrence of the external cause; Y99.8 Other external cause status; Z79.52 Long term (current) use of systemic steroids; Z88.0 Allergy status to penicillin; Z90.710 Acquired absence of both cervix and uterus; Z88.1 Allergy status to other antibiotic agents; Z88.5 Allergy status to narcotic agent; Z88.8 Allergy status to other drugs, medicaments and biological substances
CPT/HCPCS: 31500; 36415; 36600; 51702; 70450; 71045; 71250; 71260; 73590; 74018; 76770; 80048; 80053; 80202; 80305; 81001; 82272; 82550; 82607; 82728; 82803; 82948; 83036; 83540; 83605; 83690; 83735; 83880; 84100; 84439; 84443; 84484; 85025; 85045; 85379; 85384; 85610; 85651; 85730; 86886; 86900; 86901; 86920; 87040; 87070; 87075; 87081; 87086; 87186; 87205; 87804; 89220; 93005; 93925; 94003; 94640; 96361; 96365; 96375; 99291; A4649; A6248; C1751; C9113; J1644; J1650; J1815; J1940; J1956; J2060; J2185; J2250; J2270; J2704; J2916; J2920; J2930; J3010; J3370; J3475; J3480; J3490; J7030; J7060; J7626; P9016; Q0092; Q9967